=== PATIENT | male | born 1985 | race Caucasian/White ===

== ENCOUNTER 2022-07-24 20:41 | Observation (INO) | payer OTHER ==
--- NOTE | 2022-07-24 22:58 | ED ---
General Adult HPI - General Source: EMS, RN notes reviewed Mode of arrival: EMS Limitations: no limitations <Susie Lipscomb - Last Filed: 07/24/22 23:47> <José Miguel Welsh - Last Filed: 07/25/22 00:39> - General Chief complaint: Recheck/Abnormal Lab/Rx Stated complaint: ETOH Time Seen by Provider: 07/24/22 22:31 - History of Present Illness Initial comments: 36-year-old male with a past medical history of EtOH abuse presents to the emergency department after ingesting alcohol hand lock fitter. She stays at [facility] for alcohol abuse. History is limited due to patient being altered. He denies suicidal ideation, homicidal ideation, auditory hallucinations or visual hallucinations. (Susie Lipscomb) - Related Data Allergies Allergy/AdvReac Type Severity Reaction Status Date / Time No Known Allergies Allergy Verified 07/24/22 20:48 Review of Systems ROS Other: All systems not noted in ROS Statement are negative. <Susie Lipscomb - Last Filed: 07/24/22 23:47> ROS Other: All systems not noted in ROS Statement are negative. <José Miguel Welsh - Last Filed: 07/25/22 00:39> ROS Statement: Those systems with pertinent positive or pertinent negative responses have been documented in the HPI. Past Medical History Past Medical History: No Reported History History of Any Multi-Drug Resistant Organisms: None Reported Past Surgical History: No Surgical Hx Reported Past Psychological History: No Psychological Hx Reported Smoking Status: Current every day smoker Past Alcohol Use History: Abuse, Daily Past Drug Use History: None Reported <Susie Lipscomb - Last Filed: 07/24/22 23:47> General Exam Limitations: no limitations General appearance: alert, in no apparent distress Head exam: Present: atraumatic, normocephalic, normal inspection Eye exam: Present: normal appearance, PERRL, EOMI. Absent: scleral icterus, conjunctival injection, periorbital swelling ENT exam: Present: normal exam, mucous membranes moist Neck exam: Present: normal inspection. Absent: tenderness, meningismus, lymph adenopathy Respiratory exam: Present: normal lung sounds bilaterally. Absent: respiratory distress, wheezes, rales, rhonchi, stridor Cardiovascular Exam: Present: regular rate, normal rhythm, normal heart sounds. Absent: systolic murmur, diastolic murmur, rubs, gallop, clicks GI/Abdominal exam: Present: soft, normal bowel sounds. Absent: distended, tenderness, guarding, rebound, rigid Extremities exam: Present: normal inspection, full ROM, normal capillary refill. Absent: tenderness, pedal edema, joint swelling, calf tenderness Back exam: Present: normal inspection Neurological exam: Present: alert, oriented X3, CN II-XII intact Psychiatric exam: Present: normal affect, normal mood Skin exam: Present: warm, dry, intact, normal color. Absent: rash <Susie Lipscomb - Last Filed: 07/24/22 23:47> Limitations: no limitations, altered mental status, physical limitation General appearance: alert, in no apparent distress, appears intoxicated, obtunded Head exam: Present: atraumatic, normocephalic, normal inspection Eye exam: Present: normal appearance, PERRL, EOMI. Absent: scleral icterus, conjunctival injection, periorbital swelling ENT exam: Present: normal exam, mucous membranes moist Neck exam: Present: normal inspection. Absent: tenderness, meningismus, lymphadenopathy Respiratory exam: Present: normal lung sounds bilaterally. Absent: respiratory distress, wheezes, rales, rhonchi, stridor Cardiovascular Exam: Present: regular rate, normal rhythm, normal heart sounds. Absent: systolic murmur, diastolic murmur, rubs, gallop, clicks GI/Abdominal exam: Present: soft, normal bowel sounds. Absent: distended, tenderness, guarding, rebound, rigid Extremities exam: Present: normal inspection, full ROM, normal capillary refill. Absent: tenderness, pedal edema, joint swelling, calf tenderness Back exam: Present: normal inspection Neurological exam: Present: alert, oriented X3, CN II-XII intact Psychiatric exam: Present: normal affect, normal mood Skin exam: Present: warm, dry, intact, normal color. Absent: rash <José Miguel Welsh - Last Filed: 07/25/22 00:39> Course <José Miguel Welsh - Last Filed: 07/25/22 00:39> Vital Signs 07/24/22 20:46 Temperature 98 F Pulse Rate 101 H Respiratory 20 Rate Blood Pressure 112/74 O2 Sat by Pulse 97 Oximetry - Reevaluation(s) Reevaluation #1: 07/25/22 00:38 Medical record is reviewed (José Miguel Welsh) Reevaluation #2: 07/25/22 00:38 Patient remains obtunded here in the ER arousable (José Miguel Welsh) Medical Decision Making - Lab Data Result diagrams: 07/24/22 22:46 <Susie Lipscomb - Last Filed: 07/24/22 23:47> - Lab Data Result diagrams: 07/24/22 22:46 07/24/22 22:46 <José Miguel Welsh - Last Filed: 07/25/22 00:39> - Medical Decision Making 36 year old male presents to the emergency department for intentional ingestion. He was seen and evaluated, physical exam is essentially unremarkable. History is limited due to the patient being altered likely due to hand lock fitter ingestion. Pt was taken over by Dr. Welsh who agrees to take case for continuation of care. (Susie iLpscomb) 36 male be admitted for significant alcohol intoxication intentional not suicidal (José Miguel Welsh) - Lab Data Lab Results 07/24/22 07/24/22 07/24/22 Range/Units 22:46 22:46 22:46 WBC 9.4 (3.8-10.6) k/uL RBC 4.82 (4.30-5.90) m/uL Hgb 14.9 (13.0-17.5) gm/dL Hct 43.2 (39.0-53.0) % MCV 89.6 (80.0-100.0) fL MCH 30.9 (25.0-35.0) pg MCHC 34.5 (31.0-37.0) g/dL RDW 12.7 (11.5-15.5) % Plt Count 214 (150-450) k/uL MPV 7.7 Neutrophils % 62 % Lymphocytes % 27 % Monocytes % 4 % Eosinophils % 4 % Basophils % 1 % Neutrophils # 5.8 (1.3-7.7) k/uL Lymphocytes # 2.5 (1.0-4.8) k/uL Monocytes # 0.4 (0-1.0) k/uL Eosinophils # 0.3 (0-0.7) k/uL Basophils # 0.1 (0-0.2) k/uL Sodium 148 H (137-145) mmol/L Potassium 4.3 (3.5-5.1) mmol/L Chloride 109 H (98-107) mmol/L Carbon Dioxide 29 (22-30) mmol/L Anion Gap 10 mmol/L BUN 14 (9-20) mg/dL Creatinine 1.15 (0.66-1.25) mg/dL Est GFR (CKD-EPI)AfAm >90 (>60 ml/min/1.73 sqM) Est GFR (CKD-EPI)NonAf 81 (>60 ml/min/1.73 sqM) Glucose 102 H (74-99) mg/dL Calcium 9.0 (8.4-10.2) mg/dL Magnesium 2.4 H (1.6-2.3) mg/dL Total Bilirubin 0.3 (0.2-1.3) mg/dL AST 27 (17-59) U/L ALT 43 (4-49) U/L Alkaline Phosphatase 105 (38-126) U/L Total Protein 7.3 (6.3-8.2) g/dL Albumin 4.6 (3.5-5.0) g/dL Salicylates <1.0 mg/dL Acetaminophen <10.0 ug/mL Serum Alcohol 281 H* mg/dL Disposition <Susie Lipscomb - Last Filed: 07/24/22 23:47> Is patient prescribed a controlled substance at d/c from ED?: No Time of Disposition: 00:40 <José Miguel Welsh - Last Filed: 07/25/22 00:39> Clinical Impression: Alcohol abuse, Alcohol intoxication Disposition: ADMITTED IP TO THIS HOSP Condition: Fair Referrals: None,Stated [Primary Care Provider] - 1-2 days
[2022-07-24 22:59] LABS: Basophils # (A) 0.1 k/uL (0-0.2); Basophils % (A) 1 %; Eosinophils # (A) 0.3 k/uL (0-0.7); Eosinophils % (A) 4 %; HCT 43.2 % (39.0-53.0); HGB 14.9 gm/dL (13.0-17.5); Lymphocytes # (A) 2.5 k/uL (1.0-4.8); Lymphocytes % (A) 27 %; MCH 30.9 pg (25.0-35.0); MCHC 34.5 g/dL (31.0-37.0); MCV 89.6 fL (80.0-100.0); Mean Platelet Volume 7.7; Monocytes # (A) 0.4 k/uL (0-1.0); Monocytes % (A) 4 %; Neutrophils # (A) 5.8 k/uL (1.3-7.7); Neutrophils % (A) 62 %; Platelet Count 214 k/uL (150-450); RBC 4.82 m/uL (4.30-5.90); RDW 12.7 % (11.5-15.5); WBC 9.4 k/uL (3.8-10.6)
[2022-07-24 23:15] LABS: ALT 43 U/L (4-49); AST 27 U/L (17-59); African American GFR (CKD) >90 (>60 ml/min/1.73 sqM); Albumin 4.6 g/dL (3.5-5.0); Alkaline Phosphatase 105 U/L (38-126); Anion Gap 10 mmol/L; Blood Urea Nitrogen 14 mg/dL (9-20); Carbon Dioxide 29 mmol/L (22-30); Chloride 109 mmol/L (98-107); Glucose 102 mg/dL (74-99); Non-African American GFR(CKD) 81 (>60 ml/min/1.73 sqM); Potassium 4.3 mmol/L (3.5-5.1); Sodium 148 mmol/L (137-145); Total Bilirubin 0.3 mg/dL (0.2-1.3); Total Protein 7.3 g/dL (6.3-8.2)
[2022-07-24] MEDS ORDERED: SODIUM CHLORIDE 0.9% 1,000 ML IV STA (23:39)
[2022-07-25 00:01] LABS: Alcohol 281 mg/dL
[2022-07-25 00:15] LABS: Acetaminophen <10.0 ug/mL; Magnesium 2.4 mg/dL (1.6-2.3); Salicylate <1.0 mg/dL
[2022-07-25] MEDS ORDERED: LORazepam 2 MG/ML INJ IV PRN ×3 (00:36)
[2022-07-25] MEDS ORDERED: THIAMINE 100 MG/ML 2 ML VIAL IM STA (00:36)
[2022-07-25] MEDS ORDERED: chlordiazePOXIDE 25 MG CAP PO PRN (00:36)
[2022-07-25] MEDS ORDERED: NALOXONE 0.4 MG/ML 1 ML VIAL IV PRN (00:36)
[2022-07-25 01:54] LABS: Amphetamine Screen,Urine Not Detected (NotDetected); Barbiturate Screen,Urine Not Detected (NotDetected); Benzodiazepines Screen,Urine Not Detected (NotDetected); Cocaine Screen,Urine Not Detected (NotDetected); Methadone Screen, Urine Not Detected (NotDetected); Opiate Screen,Urine Not Detected (NotDetected); Oxycodone Screen, Urine Not Detected (NotDetected); Phencyclidine Screen,Urine Not Detected (NotDetected); Tricyclic Antidepressant,Urine Not Detected (NotDetected); Urn Cannabinoid Scrn Not Detected (NotDetected)
[2022-07-25] MEDS: SODIUM CHLORIDE 0.9% 1,000 ML IV SCH ×2 (02:45→10:06)
--- NOTE | 2022-07-25 03:03 | P.HPIM ---
History of Present Illness H&P Date: 07/25/22 Patient is a 36-year-old male with a PMH of EtOH abuse who was brought to the emergency room for alcohol intoxication. The patient was currently a resident of [facility] for alcohol abuse states that he drank a full bottle of hand insulation cutter earlier today. The history is somewhat limited as the patient was lethargic and intoxicated at the time of interview. He reports a history of heavy drinking for the past 15 years. Reports history of delirium tremens but denied alcohol withdrawal seizures or admission to medical ICU or be placed on life support. The patient was unable to quantify the exact amount of alcohol that he drinks on a regular basis. He reports currently being unemployed and homeless. Laboratory evaluation in the emergency room was remarkable for alcohol level of 281 and sodium 148. Review of systems: Pertinent positives and negatives as discussed in HPI, a complete review of systems was performed and all other systems are negative. Physical examination: General: intoxicated lethargic male, no distress, appears at stated age, normal weight Derm: no unusual rashes/lesions, warm Head: atraumatic, normocephalic, symmetric Eyes: EOMI, no lid lag, anicteric sclera, pupils equal round reactive to light ENT: Nose and ears atraumatic Neck: No cervical lymphadenopathy, trachea midline, supple Mouth: no lip lesion, mucus membranes moist Cardiovascular: S1S2 reg, no murmur, positive dorsalis pedis pulse bilateral, no edema Lungs: CTA bilateral, no rhonchi, no rales, no accessory muscle use Abdominal: soft, nontender to palpation, no guarding Ext: muscle strength 5 out of 5 in all 4 extremities grossly, no gross muscle atrophy, no contractures, Neuro: CN II-XI grossly intact, no gross focal neuro deficits Psych: Lethargic, oriented to time and self, knew he was in a hospital but couldn't state the name Assessment/plan Alcohol intoxication. -CIWA protocol -Thiamine, multivitamin -IV fluids -Monitor for signs of withdrawal -Monitor electrolytes -Fall precautions -Strongly advised patient on importance of cessation Mild hypernatremia -Likely due to poor oral intake with EtOH abuse -Continue with IV fluids -Monitor for now DVT prophylaxis -Heparin subcu The patient is admitted with an anticipated less than 2 midnight stay for evaluation of EtOH intoxication CODE STATUS: Full Code Discussed with: Patient Anticipated discharge date: in am Anticipated discharge place: [facility] Past Medical History Past Medical History: No Reported History History of Any Multi-Drug Resistant Organisms: None Reported Past Surgical History: No Surgical Hx Reported Past Psychological History: No Psychological Hx Reported Smoking Status: Current every day smoker Past Alcohol Use History: Abuse, Daily Past Drug Use History: None Reported - Past Family History Father Family Medical History: Liver Disease Medications and Allergies Allergies Allergy/AdvReac Type Severity Reaction Status Date / Time No Known Allergies Allergy Verified 07/24/22 20:48 Physical Exam Vitals: Vital Signs Temp Pulse Resp BP Pulse Ox 07/25/22 02:32 72 16 101/62 96 07/25/22 01:25 70 16 101/61 97 07/25/22 00:58 78 16 109/55 97 07/24/22 20:46 98 F 101 H 20 112/74 97 Intake and Output 07/24/22 07/24/22 07/25/22 14:59 22:59 06:59 Other: Weight 81.647 kg Results CBC & Chem 7: 07/24/22 22:46 07/24/22 22:46 Labs: Abnormal Lab Results - Last 24 Hours (Table) 07/24/22 07/24/22 Range/Units 22:46 22:46 Sodium 148 H (137-145) mmol/L Chloride 109 H (98-107) mmol/L Glucose 102 H (74-99) mg/dL Magnesium 2.4 H (1.6-2.3) mg/dL Serum Alcohol 281 H* mg/dL
[2022-07-25] MEDS ORDERED: HEPARIN SODIUM,PORCINE/PF 5,000 UNIT/0.5 ML SYRINGE SQ SCH (08:00)
[2022-07-25 08:24] VITALS: BP 91/52; PULSE 77; RESP 16; TEMP 97.9
[2022-07-25] MEDS ORDERED: THIAMINE 100 MG TAB PO SCH (09:00)
[2022-07-25] MEDS ORDERED: MULTIVITAMINS, THERA 1 EACH TAB PO SCH (09:00)
[2022-07-25 10:33] LABS: African American GFR (CKD) >90 (>60 ml/min/1.73 sqM); Anion Gap 10 mmol/L; Blood Urea Nitrogen 13 mg/dL (9-20); Calcium 8.2 mg/dL (8.4-10.2); Carbon Dioxide 26 mmol/L (22-30); Chloride 110 mmol/L (98-107); Glucose 85 mg/dL (74-99); Non-African American GFR(CKD) >90 (>60 ml/min/1.73 sqM); Potassium 3.9 mmol/L (3.5-5.1); Sodium 146 mmol/L (137-145)
--- NOTE | 2022-07-25 12:28 | P.DS ---
Providers Date of admission: 07/25/22 00:38 Expected date of discharge: 07/25/22 Attending physician: Marcel Sommers MD Primary care physician: Stated None Hospital Course: Patient is a 36-year-old male with a PMH of EtOH abuse who was brought to the emergency room for alcohol intoxication. The patient was currently a resident of [facility] for alcohol abuse states that he drank a full bottle of hand automatic lathe tender earlier today. The history is somewhat limited as the patient was lethargic and intoxicated at the time of interview. He reports a history of heavy drinking for the past 15 years. Reports history of delirium tremens but denied alcohol withdrawal seizures or admission to medical ICU or be placed on life support. The patient was unable to quantify the exact amount of alcohol that he drinks on a regular basis. He reports currently being unemployed and homeless. Laboratory evaluation in the emergency room was remarkable for alcohol level of 281 and sodium 148. Patient was placed on CIWA protocol and given Ativan as needed. He was hydrated with normal saline. Repeat sodium is 146. He had no signs of alcohol withdrawal. Patient was seen and examined. No acute events overnight. Patient reports fatigue and headache but denies any other complaints. General: non toxic, no distress, appears at stated age Derm: warm, dry Head: atraumatic, normocephalic, symmetric Eyes: EOMI, no lid lag, anicteric sclera Mouth: no lip lesion, mucus membranes moist Cardiovascular: S1S2 reg, no murmur Lungs: CTA bilateral, no rhonchi, no rales , no accessory muscle use Ext: no gross muscle atrophy, no edema, no contractures Neuro: no focal neuro deficits Psych: Alert, oriented, appropriate affect Discharge diagnosis: #Alcohol intoxication. #Mild hypernatremia Patient will be discharged back to [facility] with the following instructions: Diet: Regular FU with your PCP within 1-2 days of DC. Refrain from drinking alcohol or hand automatic lathe tender. Patient Condition at Discharge: Fair Plan - Discharge Summary Discharge Rx Participant: Yes New Discharge Prescriptions: Continue OXcarbazepine [Trileptal] 150 mg PO DAILY Escitalopram [Lexapro] 10 mg PO DAILY OXcarbazepine [Trileptal] 300 mg PO DAILY OLANZapine 5 mg PO DAILY Discharge Medication List Escitalopram [Lexapro] 10 mg PO DAILY 07/25/22 [History] OLANZapine 5 mg PO DAILY 07/25/22 [History] OXcarbazepine [Trileptal] 150 mg PO DAILY 07/25/22 [History] OXcarbazepine [Trileptal] 300 mg PO DAILY 07/25/22 [History] Follow up Appointment(s)/Referral(s): None,Stated [Primary Care Provider] - 1-2 days Activity/Diet/Wound Care/Special Instructions: Diet: Regular FU with your PCP within 1-2 days of DC. Refrain from drinking alcohol or hand automatic lathe tender. Discharge/Stand Alone Forms: AA Meetings [facility], [facility] Resources, Outpatient Counseling, In Substance Abuse Facilities Discharge Disposition: HOME SELF-CARE
== END 2022-07-25 15:35 | disposition home or self-care (01) ==
LOC: EC 20:41 → 6NMEDSUR 07-25 00:38
PROVIDERS: ADMIT Internal Medicine; ATTEND Internal Medicine
DX: T49.0X2A Poisoning by local antifungal, anti-infective and anti-inflammatory drugs, intentional self-harm, initial encounter (principal); F10.129 Alcohol abuse with intoxication, unspecified; E87.0 Hyperosmolality and hypernatremia; R51.9 Headache, unspecified; Y90.8 Blood alcohol level of 240 mg/100 ml or more; F17.200 Nicotine dependence, unspecified, uncomplicated; Z56.0 Unemployment, unspecified; Z59.00 Homelessness unspecified; Z71.41 Alcohol abuse counseling and surveillance of alcoholic; Z83.79 Family history of other diseases of the digestive system
CPT/HCPCS: 96372 ×2; 82075; 96360; 96361; 99285; 36415; 93005; 80053; 80048; 83735; 85025; 80306; 80143; 80179; G0378; G0480; J3411; J1644; 80320

== ENCOUNTER 2022-10-22 05:38 | Emergency (ER) | payer OTHER ==
[2022-10-22] MEDS ORDERED: KETOROLAC 15 MG/ML 1 ML VIAL IVP STA (05:46)
--- NOTE | 2022-10-22 05:49 | ED ---
General Adult HPI <Jered Byrd - Last Filed: 10/22/22 06:18> <Vickey Chambers - Last Filed: 10/22/22 09:31> - General Stated complaint: ABD PAIN Time Seen by Provider: 10/22/22 05:40 - History of Present Illness Initial comments: This is a 37-year-old male with a past mental history including depression presents emergency department via EMS for left-sided abdominal pain and flank pain. The patient stated that this pain began at 4:00 in the morning and has been persistent. The patient stated he was "knee area and didn't know what else to do so he called 911." The patient was in bed stating he had continued left- sided abdominal pain. The patient denied having any similar episodes in the past. The patient denied any nausea or vomiting with this pain. The patient also denied any dysuria or increased urinary frequency. The patient was an overall poor historian and cannot provide many details regarding the left-sided abdominal pain. The patient also denied any trauma to the area. (Jered Byrd) - Related Data Home Medications Medication Instructions Recorded Confirmed Escitalopram [Lexapro] 20 mg PO DAILY 10/22/22 10/22/22 Previous Rx's Medication Instructions Recorded Ibuprofen [Motrin] 600 mg PO Q8HR PRN #24 tab 10/22/22 Tamsulosin [Flomax] 0.4 mg PO DAILY 7 Days #7 cap 10/22/22 Allergies Allergy/AdvReac Type Severity Reaction Status Date / Time No Known Allergies Allergy Verified 07/25/22 10:28 Review of Systems ROS Other: All systems not noted in ROS Statement are negative. <Jered Byrd - Last Filed: 10/22/22 06:18> ROS Other: All systems not noted in ROS Statement are negative. <Vickey Chambers - Last Filed: 10/22/22 09:31> ROS Statement: Those systems with pertinent positive or pertinent negative responses have been documented in the HPI. Past Medical History Past Medical History: No Reported History History of Any Multi-Drug Resistant Organisms: None Reported Past Surgical History: No Surgical Hx Reported Past Anesthesia/Blood Transfusion Reactions: No Reported Reaction Past Psychological History: No Psychological Hx Reported Smoking Status: Current every day smoker Past Alcohol Use History: Abuse, Daily Past Drug Use History: None Reported - Past Family History Father Family Medical History: Liver Disease <Jered Byrd - Last Filed: 10/22/22 06:18> General Exam Limitations: no limitations General appearance: alert, in no apparent distress Head exam: Present: atraumatic, normocephalic, normal inspection Eye exam: Present: normal appearance, PERRL Pupils: Present: normal accommodation ENT exam: Present: normal exam, normal oropharynx, mucous membranes moist Neck exam: Present: normal inspection, full ROM Respiratory exam: Present: normal lung sounds bilaterally Cardiovascular Exam: Present: regular rate, normal rhythm, normal heart sounds GI/Abdominal exam: Present: soft, tenderness (Tenderness noted to the left upper and left lower abdominal quadrant as well as left flank without CVA tenderness) Extremities exam: Present: normal inspection, full ROM Back exam: Present: normal inspection, full ROM Neurological exam: Present: alert, oriented X3, CN II-XII intact Psychiatric exam: Present: normal affect, normal mood Skin exam: Present: warm, dry <Jered Byrd - Last Filed: 10/22/22 06:18> Course Vital Signs 10/22/22 05:47 Temperature 98.0 F Pulse Rate 90 Respiratory 16 Rate Blood Pressure 153/93 O2 Sat by Pulse 100 Oximetry Medical Decision Making <Jered Byrd - Last Filed: 10/22/22 06:18> - Lab Data Result diagrams: 10/22/22 06:00 10/22/22 06:00 <Vickey Chambers - Last Filed: 10/22/22 09:31> - Medical Decision Making Was pt. sent in by a medical professional or institution ([facility], [facility]OURNEY[employer]EFIT[employer], urgent care, hospital, or fci...) When possible be specific @ -No Did you speak to anyone other than the patient for history (EMS, parent, family, police, friend...)? What history was obtained from this source @ -Yes, EMS Did you review nursing and triage notes (agree or disagree)? Why? @ -I reviewed and agree with nursing and triage notes Were old charts reviewed (outside hosp., previous admission, EMS record, old EKG, old radiological studies, urgent care reports/EKG's, fci records)? Report findings @ -No old charts were reviewed Differential Diagnosis (chest pain, altered mental status, abdominal pain women, abdominal pain men, vaginal bleeding, weakness, fever, dyspnea, syncope, headache, dizziness, GI bleed, back pain, seizure, CVA, palpatations, mental health)? @ -Kidney stone, muscle strain, gastroenteritis EKG interpreted by me (3pts min.). @ -None X-rays interpreted by me (1pt min.). @ -None done CT interpreted by me (1pt min.). @ -CT of the abdomen and pelvis with IV contrast was obtained and was pending at this time. U/S interpreted by me (1pt. min.). @ -None done What testing was considered but not performed or refused? (CT, X-rays, U/S, labs)? Why? @ -None What meds were considered but not given or refused? Why? @ -None Did you discuss the management of the patient with other professionals (professionals i.e. , PA, JOURNEYMAN PIPEFITTER, lab, RT, psych nurse, child protective services social worker, contact center representative, teacher, control officer, renal case manager)? Give summary @ -No Was smoking cessation discussed for >3mins.? @ -No Was critical care preformed (if so, how long)? @ -No Were there social determinants of health that impacted care today? How? (Homelessness, low income, unemployed, alcoholism, drug addiction, tr ansportation, low edu. Level, literacy, decrease access to med. care, fci, rehab)? @ -No Was there de-escalation of care discussed even if they declined (Discuss DNR or withdrawal of care, Hospice)? DNR status @ -No What co-morbidities impacted this encounter? (DM, HTN, Smoking, COPD, CAD, Cancer, CVA, ARF, Chemo, Hep., AIDS, mental health diagnosis, sleep apnea, morbid obesity)? @ -None Was patient admitted / discharged? Hospital course, mention meds given and route, prescriptions, significant lab abnormalities, going to OR and other pertinent info. @ -The patient was seen and evaluated emergency department. Physical exam, the patient was resting in bed with intermittent left-sided abdominal pain and flank pain. Vital signs admission were stable. Due to the patient's complaints, laboratory workup as well as a CT of the abdomen and pelvis was obtained. Laboratory workup and CT scans were stable pending at this time. The patient will be signed out to Dr. Chambers for completion of the workup. The patient was signed out at 0700. Undiagnosed new problem with uncertain prognosis? @ -No Drug Therapy requiring intensive monitoring for toxicity (Heparin, Nitro, Insulin, Cardizem)? @ -No Were any procedures done? @ -No Diagnosis/symptom? @ -default Acute, or Chronic, or Acute on Chronic? @ -default Uncomplicated (without systemic symptoms) or Complicated (systemic symptoms)? @ -default Side effects of treatment? @ -No Exacerbation, Progression, or Severe Exacerbation? @ -No Poses a threat to life or bodily function? How? (Chest pain, USA, MS, pneumonia, PE, COPD, DKA, ARF, appy, cholecystitis, CVA, Diverticulitis, Homicidal, Suicidal, threat to staff... and all critical care pts) @ -No (Jered Byrd) Patient had been seen by previous provider awaiting computed tomography scan for left-sided abdominal pain and flank pain. Patient reevaluated, resting comfortably pain is improved. CT showing a 3 mm stone in the bladder which is likely the cause of the patient's pain he does have some left-sided hydronephrosis to aid in the diagnosis. Urinalysis shows red cells consistent with kidney stone. He is given a urine strainer. He is feeling better on reevaluation vital signs are improved. He stable for discharge at this time with urology follow-up. (Vickey Chambers) - Lab Data Lab Results 10/22/22 10/22/22 10/22/22 Range/Units 06:00 06:00 08:04 WBC 14.3 H (3.8-10.6) k/uL RBC 5.50 (4.30-5.90) m/uL Hgb 17.2 (13.0-17.5) gm/dL Hct 48.9 (39.0-53.0) % MCV 88.9 (80.0-100.0) fL MCH 31.3 (25.0-35.0) pg MCHC 35.2 (31.0-37.0) g/dL RDW 12.8 (11.5-15.5) % Plt Count 262 (150-450) k/uL MPV 7.6 Neutrophils % 77 % Lymphocytes % 18 % Monocytes % 4 % Eosinophils % 1 % Basophils % 0 % Neutrophils # 11.0 H (1.3-7.7) k/uL Lymphocytes # 2.5 (1.0-4.8) k/uL Monocytes # 0.5 (0-1.0) k/uL Eosinophils # 0.1 (0-0.7) k/uL Basophils # 0.0 (0-0.2) k/uL Sodium 140 (137-145) mmol/L Potassium 4.3 (3.5-5.1) mmol/L Chloride 105 (98-107) mmol/L Carbon Dioxide 26 (22-30) mmol/L Anion Gap 9 mmol/L BUN 17 (9-20) mg/dL Creatinine 1.06 (0.66-1.25) mg/dL Est GFR (CKD-EPI)AfAm >90 (>60 ml/min/1.73 sqM) Est GFR (CKD-EPI)NonAf 89 (>60 ml/min/1.73 sqM) Glucose 152 H (74-99) mg/dL Calcium 9.8 (8.4-10.2) mg/dL Magnesium 1.8 (1.6-2.3) mg/dL Total Bilirubin 0.5 (0.2-1.3) mg/dL AST 25 (17-59) U/L ALT 29 (4-49) U/L Alkaline Phosphatase 108 (38-126) U/L Total Protein 7.5 (6.3-8.2) g/dL Albumin 4.7 (3.5-5.0) g/dL Lipase 71 (23-300) U/L Urine Color Yellow Urine Appearance Clear (Clear) Urine pH 7.5 (5.0-8.0) Ur Specific [place] 1.050 H (1.001-1.035) Urine Protein Trace H (Negative) Urine Glucose (UA) Negative (Negative) Urine Ketones 2+ H (Negative) Urine Blood Small H (Negative) Urine Nitrite Negative (Negative) Urine Bilirubin Negative (Negative) Urine Urobilinogen <2.0 (<2.0) mg/dL Ur Leukocyte Esterase Negative (Negative) Urine RBC 41 H (0-5) /hpf Urine WBC 1 (0-5) /hpf Urine Mucus Rare H (None) /hpf Disposition <Jered Byrd - Last Filed: 10/22/22 06:18> Is patient prescribed a controlled substance at d/c from ED?: No Time of Disposition: 09:31 <Vickey Chambers - Last Filed: 10/22/22 09:31> Clinical Impression: Calculus of kidney Disposition: HOME SELF-CARE Condition: Good Instructions (If sedation given, give patient instructions): Renal Colic (ED), Kidney Stones (ED) Prescriptions: Tamsulosin [Flomax] 0.4 mg PO DAILY 7 Days #7 cap Ibuprofen [Motrin] 600 mg PO Q8HR PRN #24 tab PRN Reason: Pain Referrals: None,Stated [Primary Care Provider] - 1-2 days Yoshi Harris MD [STAFF PHYSICIAN] - 1-2 days
[2022-10-22] MEDS ORDERED: SODIUM CHLORIDE 0.9% 1,000 ML IV ONE (06:05)
[2022-10-22 06:22] LABS: Basophils % (A) 0 %; Eosinophils # (A) 0.1 k/uL (0-0.7); Eosinophils % (A) 1 %; HCT 48.9 % (39.0-53.0); HGB 17.2 gm/dL (13.0-17.5); Lymphocytes # (A) 2.5 k/uL (1.0-4.8); Lymphocytes % (A) 18 %; MCH 31.3 pg (25.0-35.0); MCHC 35.2 g/dL (31.0-37.0); MCV 88.9 fL (80.0-100.0); Mean Platelet Volume 7.6; Monocytes # (A) 0.5 k/uL (0-1.0); Monocytes % (A) 4 %; Neutrophils % (A) 77 %; Platelet Count 262 k/uL (150-450); RDW 12.8 % (11.5-15.5); WBC 14.3 k/uL (3.8-10.6)
[2022-10-22 06:38] LABS: ALT 29 U/L (4-49); AST 25 U/L (17-59); African American GFR (CKD) >90 (>60 ml/min/1.73 sqM); Albumin 4.7 g/dL (3.5-5.0); Alkaline Phosphatase 108 U/L (38-126); Anion Gap 9 mmol/L; Blood Urea Nitrogen 17 mg/dL (9-20); Calcium 9.8 mg/dL (8.4-10.2); Carbon Dioxide 26 mmol/L (22-30); Chloride 105 mmol/L (98-107); Glucose 152 mg/dL (74-99); Lipase 71 U/L (23-300); Magnesium 1.8 mg/dL (1.6-2.3); Non-African American GFR(CKD) 89 (>60 ml/min/1.73 sqM); Potassium 4.3 mmol/L (3.5-5.1); Sodium 140 mmol/L (137-145); Total Bilirubin 0.5 mg/dL (0.2-1.3); Total Protein 7.5 g/dL (6.3-8.2)
--- NOTE | 2022-10-22 07:45 | CT ---
EXAMINATION TYPE: CT abdomen pelvis w con DATE OF EXAM: 10/22/2022 COMPARISON: None HISTORY: LLQ pain CT DLP: 842.8 mGycm CONTRAST: CT scan of the abdomen and pelvis is performed without Oral Contrast and with IV Contrast, patient in jected with 100 mL of Isovue 300. FINDINGS: LUNG BASES-: No visible nodule. No infiltrate. LIVER/GB: No calcified gallstones. No space occupying hepatic lesion. Biliary tree is of normal ca liber. PANCREAS: No inflammation. No distinct mass. SPLEEN: No splenic enlargement. No lesion seen. ADRENALS: No nodule. No thickening. KIDNEYS/BLADDER: 3 mm calculus within the urinary bladder adjacent to the left UVJ is felt to reflect a recently passed calculus. Mild left-sided hydronephrosis. 3-4 right-sided nonobstructing calculi s een measuring up to 2 mm. The left kidney demonstrates additional 3 mm calculus mid pole is a 1 calcu britta mid pole and 1 mm calculus lower pole. Mild left renal edema noted. BOWEL: Normal appendix. Normal bowel caliber. No inflammation. GENITAL ORGANS: No gross abnormality. LYMPH NODES: No greater than 1cm abdominal or pelvic lymph nodes are appreciated. AORTA: No significant abnormality. OSSEOUS STRUCTURES: No significant abnormality is seen. OTHER: No significant additional abnormality is seen. IMPRESSION: 1. 3 mm calculus within the urinary bladder adjacent to the left UVJ is felt to reflect a recently p assed calculus. Mild left-sided hydronephrosis.
[2022-10-22 08:46] LABS: Appearance,Urine Clear (Clear); Bilirubin,Urine Negative (Negative); Blood,Urine Small (Negative); Color,Urine Yellow; Glucose,Urine (UA) Negative (Negative); Ketones,Urine 2+ (Negative); Leukocyte Esterase,Urine Negative (Negative); Mucus,Urine Rare /hpf; Nitrite,Urine Negative (Negative); PH, Urine 7.5 (5.0-8.0); Protein,Urine Trace (Negative); RBC,Urine 41 /hpf (0-5); Urobilinogen,Urine <2.0 mg/dL (<2.0); WBC,Urine 1 /hpf (0-5)
[2022-10-22 10:09] VITALS: BP 137/89; PULSE 96; RESP 18; TEMP 97.9
== END 2022-10-22 10:09 | disposition home or self-care (01) ==
LOC: EC 05:38
DX: N13.2 Hydronephrosis with renal and ureteral calculous obstruction (principal); F17.200 Nicotine dependence, unspecified, uncomplicated
CPT/HCPCS: 36415; 80053; 83690; 83735; 85025; 81001; 74177; 99285; 96374; 96361; J1885; Q9967

== ENCOUNTER 2022-11-11 15:05 | Emergency (ER) | payer OTHER ==
[2022-11-11] MEDS ORDERED: SODIUM CHLORIDE 0.9% 1,000 ML IV STA (15:30)
[2022-11-11] MEDS ORDERED: KETOROLAC 15 MG/ML 1 ML VIAL IVP STA (15:30)
[2022-11-11] MEDS ORDERED: DIPH,PERTUS(ACELL)TETVAC-LF 0.5 ML VIAL IM ONE (15:37)
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
[2022-11-11 16:19] VITALS: RESP 14
[2022-11-11 17:38] VITALS: BP 132/76; PULSE 82; TEMP 98.6
== END 2022-11-11 17:38 | disposition home or self-care (01) ==
LOC: EC 15:05
DX: S01.01XA Laceration without foreign body of scalp, initial encounter (principal); F17.200 Nicotine dependence, unspecified, uncomplicated; Z23 Encounter for immunization; V29.99XA Rider (driver) (passenger) of other motorcycle injured in unspecified traffic accident, initial encounter; Y93.55 Activity, bike riding
CPT/HCPCS: 12002; 99285; 90471; 96374; 96361; 72125; 70450; 90715; J1885

== ENCOUNTER 2022-12-08 08:17 | Observation (INO) | payer OTHER ==
[2022-12-08] MEDS ORDERED: SODIUM CHLORIDE 0.9% 1,000 ML IV ONE (08:26)
--- NOTE | 2022-12-08 08:32 | ED ---
Altered Mental Status HPI - General Stated Complaint: AMS Time Seen by Provider: 12/08/22 08:17 - History of Present Illness Initial Comments: 37-year-old male with past medical history of daily alcohol abuse, homelessness who presents to the emergency department with decreased responsiveness. [place] EMS states that he had made a makeshift bed with blankets. He was wearing a very light jacket and had taken his shoes off. He was not answering questions appropriately. He is known to be a heavy drinker and has been staying in a jail. There was no signs of trauma or assault. Patient is known to EMS and they deny that he has any type of psychiatric history. HPI is limited due to the patient's current mental status - Related Data Home Medications Medication Instructions Recorded Confirmed Escitalopram [Lexapro] 20 mg PO DAILY 10/22/22 12/08/22 OLANZapine [ZyPREXA] 5 mg PO HS 12/08/22 12/08/22 OXcarbazepine [Trileptal] 150 mg PO BID 12/08/22 12/08/22 Allergies Allergy/AdvReac Type Severity Reaction Status Date / Time No Known Allergies Allergy Verified 12/08/22 10:04 Review of Systems ROS Statement: Those systems with pertinent positive or pertinent negative responses have been documented in the HPI. ROS Other: All systems not noted in ROS Statement are negative. Past Medical History Past Medical History: No Reported History History of Any Multi-Drug Resistant Organisms: None Reported Past Surgical History: No Surgical Hx Reported Past Anesthesia/Blood Transfusion Reactions: No Reported Reaction Past Psychological History: No Psychological Hx Reported Smoking Status: Current every day smoker Past Alcohol Use History: Abuse, Daily Past Drug Use History: None Reported - Past Family History Father Family Medical History: Liver Disease General Exam Limitations: altered mental status General appearance: appears intoxicated, other (Smell strongly of alcohol) Head exam: Present: atraumatic, normocephalic, normal inspection, other (No outward signs of trauma) Eye exam: Present: normal appearance, PERRL, EOMI. Absent: scleral icterus, conjunctival injection, periorbital swelling ENT exam: Present: normal exam, mucous membranes moist Neck exam: Present: normal inspection. Absent: tenderness, meningismus, lymphadenopathy Respiratory exam: Present: normal lung sounds bilaterally. Absent: respiratory distress, wheezes, rales, rhonchi, stridor Cardiovascular Exam: Present: regular rate, normal rhythm, normal heart sounds. Absent: systolic murmur, diastolic murmur, rubs, gallop, clicks Neurological exam: Present: altered Psychiatric exam: Present: flat affect Skin exam: Present: other (Cool) Course Vital Signs 12/08/22 12/08/22 12/08/22 08:18 09:38 10:51 Temperature 93.7 F L 94.8 F L 95.2 F L Pulse Rate 72 72 75 Respiratory 16 18 16 Rate Blood Pressure 112/96 104/66 92/63 O2 Sat by Pulse 98 95 97 Oximetry Medical Decision Making - Medical Decision Making Was pt. sent in by a medical professional or institution (, PA, CORKING MACHINE OPERATOR, urgent care, hospital, or halfway...) When possible be specific @ -No Did you speak to anyone other than the patient for history (EMS, parent, family, police, friend...)? What history was obtained from this source @ -EMS provide history of how they found the patient. Denies signs of trauma at scene Did you review nursing and triage notes (agree or disagree)? Why? @ -I reviewed and agree with nursing and triage notes Were old charts reviewed (outside hosp., previous admission, EMS record, old EKG, old radiological studies, urgent care reports/EKG's, halfway records)? Report findings @ -Yes - patient previously hospitalized for alcohol abuse Differential Diagnosis (chest pain, altered mental status, abdominal pain women, abdominal pain men, vaginal bleeding, weakness, fever, dyspnea, syncope, headache, dizziness, GI bleed, back pain, seizure, CVA, palpatations, mental health, musculoskeletal)? @ -meningitis, traumatic brain injury, alcohol ingestion, drug ingestion, uti, sah, sdh EKG interpreted by me (3pts min.). @ -The EKG was interpreted by myself - please see EKG heading for further information X-rays interpreted by me (1pt min.). @ -yes, interpreted by myself CT interpreted by me (1pt min.). @ -yes, interpreted by myself U/S interpreted by me (1pt. min.). @ -None done What testing was considered but not performed or refused? (CT, X-rays, U/S, labs)? Why? @ -None What meds were considered but not given or refused? Why? @ -None Did you discuss the management of the patient with other professionals (professionals i.e. , PA, CORKING MACHINE OPERATOR, lab, RT, psych nurse, social service liaison, fork truck driver, teacher, systems support officer, gearcase assembler)? Give summary @ -Yes, discussed admission with dr valles Was smoking cessation discussed for >3mins.? @ -No Was critical care preformed (if so, how long)? @ -No Were there social determinants of health that impacted care today? How? (Homelessness, low income, unemployed, alcoholism, drug addiction, transport ation, low edu. Level, literacy, decrease access to med. care, custodial, rehab)? @ -alcoholism and homelessness is why the patient was found outside drunk and brought to the ED Was there de-escalation of care discussed even if they declined (Discuss DNR or withdrawal of care, Hospice)? DNR status @ -No What co-morbidities impacted this encounter? (DM, HTN, Smoking, COPD, CAD, Cancer, CVA, ARF, Chemo, Hep., AIDS, mental health diagnosis, sleep apnea, morbid obesity)? @ -alcoholism Was patient admitted / discharged? Hospital course, mention meds given and route, prescriptions, significant lab abnormalities, going to OR and other pertinent info. @ -Upon arrival patient was placed into room 5. Thorough history and physical exam is performed. IV access is established. He is given a liter bolus of normal saline. Laboratory studies are reviewed. Sodium 149. Alcohol 399. CT of the brain demonstrates no acute process. Symmetric prominent bilateral superior ophthalmic vein's. Chest x-ray demonstrates no acute process. Results are discussed with Dr. Valles who will admit the patient. Undiagnosed new problem with uncertain prognosis? @ -yes Drug Therapy requiring intensive monitoring for toxicity (Heparin, Nitro, Insulin, Cardizem)? @ -No Were any procedures done? @ -No Diagnosis/symptom? @ -acute toxic encephalopathy, acute alcohol intoxication, chronic alcohol abuse Uncomplicated (without systemic symptoms) or Complicated (systemic symptoms)? @ -complicated Side effects of treatment? @ -no Exacerbation, Progression, or Severe Exacerbation? @ -No Poses a threat to life or bodily function? How? (Chest pain, USA, VT, pneumonia, PE, COPD, DKA, ARF, appy, cholecystitis, CVA, Diverticulitis, Homicidal, Suicidal, threat to staff... and all critical care pts) @ -yes- significant alcohol intoxation could lead to aspiration or trauma - Lab Data Result diagrams: 12/09/22 05:59 12/09/22 05:59 Lab Results 12/08/22 12/08/22 12/08/22 Range/Units 08:34 08:34 08:34 WBC 12.0 H (3.8-10.6) k/uL RBC 5.31 (4.30-5.90) m/uL Hgb 15.9 (13.0-17.5) gm/dL Hct 48.0 (39.0-53.0) % MCV 90.4 (80.0-100.0) fL MCH 29.9 (25.0-35.0) pg MCHC 33.0 (31.0-37.0) g/dL RDW 13.5 (11.5-15.5) % Plt Count 238 (150-450) k/uL MPV 7.2 Neutrophils % 64 % Lymphocytes % 27 % Monocytes % 5 % Eosinophils % 1 % Basophils % 0 % Neutrophils # 7.7 (1.3-7.7) k/uL Lymphocytes # 3.2 (1.0-4.8) k/uL Monocytes # 0.6 (0-1.0) k/uL Eosinophils # 0.2 (0-0.7) k/uL Basophils # 0.0 (0-0.2) k/uL Sodium 149 H (137-145) mmol/L Potassium 4.3 (3.5-5.1) mmol/L Chloride 112 H (98-107) mmol/L Carbon Dioxide 28 (22-30) mmol/L Anion Gap 9 mmol/L BUN 14 (9-20) mg/dL Creatinine 0.91 (0.66-1.25) mg/dL Est GFR (CKD-EPI)AfAm >90 (>60 ml/min/1.73 sqM) Est GFR (CKD-EPI)NonAf >90 (>60 ml/min/1.73 sqM) Glucose 100 H (74-99) mg/dL POC Glucose (mg/dL) (70-110) mg/dL POC Glu Stock And Station Agent ID Calcium 8.2 L (8.4-10.2) mg/dL Total Bilirubin 0.2 (0.2-1.3) mg/dL AST 32 (17-59) U/L ALT 40 (4-49) U/L Alkaline Phosphatase 81 (38-126) U/L Creatine Kinase 276 H (55-170) U/L Troponin I <0.012 (0.000-0.034) ng/mL Total Protein 7.5 (6.3-8.2) g/dL Albumin 4.5 (3.5-5.0) g/dL Urine Color Urine Appearance (Clear) Urine pH (5.0-8.0) Ur Specific [place] (1.001-1.035) Urine Protein (Negative) Urine Glucose (UA) (Negative) Urine Ketones (Negative) Urine Blood (Negative) Urine Nitrite (Negative) Urine Bilirubin (Negative) Urine Urobilinogen (<2.0) mg/dL Ur Leukocyte Esterase (Negative) Salicylates <1.0 mg/dL Urine Opiates Screen (NotDetected) Ur Oxycodone Screen (NotDetected) Urine Methadone Screen (NotDetected) Ur Propoxyphene Screen (NotDetected) Acetaminophen <10.0 ug/mL Ur Barbiturates Screen (NotDetected) U Tricyclic Antidepress (NotDetected) Ur Phencyclidine Scrn (NotDetected) Ur Amphetamines Screen (NotDetected) U Methamphetamines Scrn (NotDetected) U Benzodiazepines Scrn (NotDetected) Urine Cocaine Screen (NotDetected) U Marijuana (THC) Screen (NotDetected) Serum Alcohol 399 H* mg/dL 12/08/22 12/08/22 Range/Units 08:50 08:52 WBC (3.8-10.6) k/uL RBC (4.30-5.90) m/uL Hgb (13.0-17.5) gm/dL Hct (39.0-53.0) % MCV (80.0-100.0) fL MCH (25.0-35.0) pg MCHC (31.0-37.0) g/dL RDW (11.5-15.5) % Plt Count (150-450) k/uL MPV Neutrophils % % Lymphocytes % % Monocytes % % Eosinophils % % Basophils % % Neutrophils # (1.3-7.7) k/uL Lymphocytes # (1.0-4.8) k/uL Monocytes # (0-1.0) k/uL Eosinophils # (0-0.7) k/uL Basophils # (0-0.2) k/uL Sodium (137-145) mmol/L Potassium (3.5-5.1) mmol/L Chloride (98-107) mmol/L Carbon Dioxide (22-30) mmol/L Anion Gap mmol/L BUN (9-20) mg/dL Creatinine (0.66-1.25) mg/dL Est GFR (CKD-EPI)AfAm (>60 ml/min/1.73 sqM) Est GFR (CKD-EPI)NonAf (>60 ml/min/1.73 sqM) Glucose (74-99) mg/dL POC Glucose (mg/dL) 97 (70-110) mg/dL POC Glu Stock And Station Agent ID Eliezer Cohen Calcium (8.4-10.2) mg/dL Total Bilirubin (0.2-1.3) mg/dL AST (17-59) U/L ALT (4-49) U/L Alkaline Phosphatase (38-126) U/L Creatine Kinase (55-170) U/L Troponin I (0.000-0.034) ng/mL Total Protein (6.3-8.2) g/dL Albumin (3.5-5.0) g/dL Urine Color Light Yellow Urine Appearance Clear (Clear) Urine pH 5.5 (5.0-8.0) Ur Specific [place] 1.007 (1.001-1.035) Urine Protein Negative (Negative) Urine Glucose (UA) Negative (Negative) Urine Ketones Negative (Negative) Urine Blood Negative (Negative) Urine Nitrite Negative (Negative) Urine Bilirubin Negative (Negative) Urine Urobilinogen <2.0 (<2.0) mg/dL Ur Leukocyte Esterase Negative (Negative) Salicylates mg/dL Urine Opiates Screen Not Detected (NotDetected) Ur Oxycodone Screen Not Detected (NotDetected) Urine Methadone Screen Not Detected (NotDetected) Ur Propoxyphene Screen Not Detected (NotDetected) Acetaminophen ug/mL Ur Barbiturates Screen Not Detected (NotDetected) U Tricyclic Antidepress Not Detected (NotDetected) Ur Phencyclidine Scrn Not Detected (NotDetected) Ur Amphetamines Screen Not Detected (NotDetected) U Methamphetamines Scrn Not Detected (NotDetected) U Benzodiazepines Scrn Not Detected (NotDetected) Urine Cocaine Screen Not Detected (NotDetected) U Marijuana (THC) Screen Not Detected (NotDetected) Serum Alcohol mg/dL - EKG Data EKG Comments: EKG demonstrates sinus bradycardia with a rate of 59. [place] interval 149. QRS 110. QTC of 447. No acute ST segment elevations or depressions Disposition Clinical Impression: Alcohol intoxication, Encephalopathy acute, Hypothermia Disposition: ADMITTED IP TO THIS [facility] Condition: Stable Is patient prescribed a controlled substance at d/c from ED?: No Time of Disposition: 09:51 Decision to Admit Reason: Admit from EC Decision Date: 12/08/22 Decision Time: 09:51
[2022-12-08 08:54] LABS: Glucose,Whole Blood 97 mg/dL (70-110)
[2022-12-08 08:55] LABS: Basophils % (A) 0 %; Eosinophils # (A) 0.2 k/uL (0-0.7); Eosinophils % (A) 1 %; HGB 15.9 gm/dL (13.0-17.5); Lymphocytes # (A) 3.2 k/uL (1.0-4.8); Lymphocytes % (A) 27 %; MCH 29.9 pg (25.0-35.0); MCV 90.4 fL (80.0-100.0); Mean Platelet Volume 7.2; Monocytes # (A) 0.6 k/uL (0-1.0); Monocytes % (A) 5 %; Neutrophils # (A) 7.7 k/uL (1.3-7.7); Neutrophils % (A) 64 %; Platelet Count 238 k/uL (150-450); RBC 5.31 m/uL (4.30-5.90); RDW 13.5 % (11.5-15.5)
[2022-12-08 08:57] LABS: Appearance,Urine Clear (Clear); Bilirubin,Urine Negative (Negative); Blood,Urine Negative (Negative); Color,Urine Light Yellow; Glucose,Urine (UA) Negative (Negative); Ketones,Urine Negative (Negative); Leukocyte Esterase,Urine Negative (Negative); Nitrite,Urine Negative (Negative); PH, Urine 5.5 (5.0-8.0); Protein,Urine Negative (Negative); Specific Gravity,Urine 1.007 (1.001-1.035); Urobilinogen,Urine <2.0 mg/dL (<2.0)
[2022-12-08 08:59] LABS: ALT 40 U/L (4-49); AST 32 U/L (17-59); Acetaminophen <10.0 ug/mL; African American GFR (CKD) >90 (>60 ml/min/1.73 sqM); Albumin 4.5 g/dL (3.5-5.0); Alkaline Phosphatase 81 U/L (38-126); Anion Gap 9 mmol/L; Blood Urea Nitrogen 14 mg/dL (9-20); Calcium 8.2 mg/dL (8.4-10.2); Carbon Dioxide 28 mmol/L (22-30); Chloride 112 mmol/L (98-107); Creatine Kinase 276 U/L (55-170); Glucose 100 mg/dL (74-99); Non-African American GFR(CKD) >90 (>60 ml/min/1.73 sqM); Potassium 4.3 mmol/L (3.5-5.1); Salicylate <1.0 mg/dL; Sodium 149 mmol/L (137-145); Total Bilirubin 0.2 mg/dL (0.2-1.3); Total Protein 7.5 g/dL (6.3-8.2)
[2022-12-08 09:17] LABS: Alcohol 399 mg/dL
--- NOTE | 2022-12-08 09:17 | XR ---
EXAMINATION TYPE: XR chest 2V DATE OF EXAM: 12/08/2022 COMPARISON: NONE TECHNIQUE: PA and lateral views submitted. HISTORY: altered mental status FINDINGS: The lungs are clear and there is no pneumothorax, pleural effusion, or focal pneumonia. Heart size normal and no overt failure. Osseous structures demonstrate hypertrophic and degenerative changes of the spine. Hyperinflation. IMPRESSION: 1. No acute process. Correlate for COPD.
--- NOTE | 2022-12-08 09:25 | CT ---
EXAMINATION TYPE: CT brain wo con DATE OF EXAM: 12/08/2022 COMPARISON: 11/11/2022 HISTORY: 37-year-old male confusion, Altered mental status TECHNIQUE: Examination was done in axial plane without intravenous contrast. Coronal and sagittal r econstructions performed. CT DLP: 1044.4 mGycm Automated exposure control for dose reduction was used. FINDINGS: There is no evidence of acute intracranial hemorrhage, acute ischemic changes, mass, mass-effect, or extra-axial fluid collection. There is no effacement of cerebral sulci or basal subarachnoid cister ns. There is no hydrocephalus. There is no midline shift. Barrett-white matter distinction is preserv ed. Symmetric prominent bilateral superior ophthalmic veins. Normal sella. Normal craniocervical junction . Trace mucosal thickening ethmoid air cells. There is leftward nasal septal deviation. Mastoid air gerard ls well pneumatized. IMPRESSION: Symmetric prominent bilateral superior ophthalmic veins. Findings are nonspecific. They may be seen i n the setting of increased intracranial pressures. However, no acute intracranial abnormality is seen .
[2022-12-08 09:45] LABS: Amphetamine Screen,Urine Not Detected (NotDetected); Barbiturate Screen,Urine Not Detected (NotDetected); Benzodiazepines Screen,Urine Not Detected (NotDetected); Cocaine Screen,Urine Not Detected (NotDetected); Methadone Screen, Urine Not Detected (NotDetected); Opiate Screen,Urine Not Detected (NotDetected); Oxycodone Screen, Urine Not Detected (NotDetected); Phencyclidine Screen,Urine Not Detected (NotDetected); Tricyclic Antidepressant,Urine Not Detected (NotDetected); Urn Cannabinoid Scrn Not Detected (NotDetected)
[2022-12-08] MEDS ORDERED: NALOXONE 0.4 MG/ML 1 ML VIAL IV PRN (09:57)
[2022-12-08] MEDS ORDERED: ONDANSETRON 4 MG/2 ML VIAL IVP PRN (09:57)
[2022-12-08] MEDS ORDERED: SODIUM CHLORIDE 0.9% 1,000 ML IV SCH (10:00)
[2022-12-08] MEDS ORDERED: LACTATED RINGERS 1,000 ML IV ONE (10:09)
[2022-12-08] MEDS ORDERED: THIAMINE 100 MG/ML 2 ML VIAL IM STA (12:46)
[2022-12-08] MEDS ORDERED: LORazepam 2 MG/ML INJ IV PRN ×3 (12:46)
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
[2022-12-08] MEDS: OXcarbazepine 150 MG TAB PO SCH ×2 (15:32→22:39)
[2022-12-08] MEDS ORDERED: OLANZapine 5 MG TAB PO SCH (21:00)
[2022-12-09 07:57] VITALS: BP 119/71; PULSE 78; RESP 18; TEMP 98
[2022-12-09] MEDS: OXcarbazepine 150 MG TAB PO SCH (08:42)
[2022-12-09] MEDS ORDERED: FOLIC ACID 1 MG TAB PO SCH (09:00)
[2022-12-09] MEDS ORDERED: ESCITALOPRAM 20 MG TAB PO SCH (09:00)
[2022-12-09] MEDS ORDERED: MULTIVITAMINS, THERA 1 EACH TAB PO SCH (09:00)
[2022-12-09] MEDS ORDERED: THIAMINE 100 MG TAB PO SCH (09:00)
[2022-12-09 10:53] LABS: Basophils # (A) 0.02 X 10*3/uL (0.00-0.10); Basophils % (A) 0.2 %; Eosinophils # (A) 0.12 X 10*3/uL (0.04-0.35); Eosinophils % (A) 1.4 %; HGB 13.5 g/dL (13.0-17.0); Immature Grans, Automated 0.4 %; Lymphocytes # (A) 2.08 X 10*3/uL (0.90-5.00); Lymphocytes % (A) 24.3 %; MCH 30.5 pg (27.0-32.0); MCHC 32.9 g/dL (32.0-37.0); MCV 92.6 fL (80.0-97.0); Mean Platelet Volume 10.1 fL (9.5-12.2); Monocytes # (A) 0.72 X 10*3/uL (0.20-1.00); Monocytes % (A) 8.4 %; NRBC Per 100 WBC 0 /100 WBCS (0.0-0.0); Neutrophils % (A) 65.3 %; Platelet Count 187 X 10*3/uL (140-440); RBC 4.43 X 10*6/uL (4.40-5.60); WBC 8.57 X 10*3/uL (4.50-10.00)
[2022-12-09 11:10] LABS: African American GFR (CKD) 130.4 (60.0-200.0); Anion Gap 8.8 mmol/L (10.00-18.00); BUN/Creat Ratio 18.88 Ratio (12.00-20.00); Blood Urea Nitrogen 15.1 mg/dL (9.0-27.0); Calcium 8.5 mg/dL (8.7-10.3); Carbon Dioxide 25.2 mmol/L (20.0-27.5); Non-African American GFR(CKD) 112.5 (60.0-200.0); Potassium 3.8 mmol/L (3.5-5.5)
--- NOTE | 2022-12-09 12:17 | P.DS ---
Providers Date of admission: 12/08/22 09:57 Expected date of discharge: 12/09/22 Attending physician: Sky Austin MD Primary care physician: Stated None Hospital Course: Discharge Diagnosis: Acute alcohol intoxication an active alcoholic. Patient is clinically sober. He is requesting discharge at this time. Patient strongly encouraged to avoid any and all alcohol use. Hypothermia secondary to cold exposure outdoors, patient was placed on Ciara hugger initially upon arrival secondary to hypothermia with rectal temp of 93.7F. Hypothermia has resolved status post rewarming and current temp is 98.0F orally. Hypernatremia, resolved Hyperchloremia, resolved Hospital Course: Patient is a very pleasant 37-year-old male with a past medical history of alcohol abuse reportedly drinking one fifth of alcohol daily. He presented to the emergency department secondary to reports of being found with altered mental status/decreased responsiveness. Per ED documentation, patient was found outside of the courthouse lying on the ground after reportedly making a makeshift bed with blankets. Patient was reportedly wearing a very light jacket and taken his shoes off. Patient was found by EMS to be intoxicated and brought to our facility for evaluation. Upon initial arrival patient was found to be hypothermic with a rectal temp of 93.7F requiring placement on Ciara hugger and administration of warmed IV fluids. Patient's body temp successfully increased to 97.5F orally after successful warming procedures. Vital signs otherwise st able with blood pressure 104/66, heart rate 72, respiratory rate 18, and SpO2 of 95% on room air. Labs completed and reviewed. CBC consistent with leukocytosis with WBC count of 12.0. BMP revealing hypernatremia with sodium 149 and hyperchloremia with chloride of 112. Glucose level stable at 100. Liver enzymes unremarkable. Troponin less than 0.012 and creatinine kinase slightly elevated at 276. Urinalysis negative for infection. Salicylates less than 1.0 and acetaminophen less than 10.0. Alcohol level was elevated at 399. Urine drug screen was negative. CT head completed and radiology report reviewed showing symmetric prominent bilateral superior ophthalmic veins and negative for acute intercranial abnormality showing no significant changes when compared to CT head completed 11/11/22. EKG completed showing sinus bradycardia at 59 bpm. Discussed in detail with ED physician. Patient admitted under our services for alcohol intoxication pending withdrawal. Hypothermia secondary to cold exposure outdoors, patient was placed on Ciara hugger initially upon arrival secondary to hypothermia with rectal temp of 93.7F. Hypothermia has resolved status post rewarming and current temp is 98.0F orally. Patient is medically stable and is alert and oriented to person, place, time, and situation. Patient is clinically sober and is requesting discharge at this time. Patient strongly encouraged to avoid any and all alcohol use. Physical exam: Vital signs reviewed and stable. General: Nontoxic, no distress and appears stated age. Derm: Skin warm and dry, normal coloration for ethnicity. Head: Atraumatic, normocephalic and symmetric. Eyes: EOMs intact, no lid lag, and anicteric sclera Mouth: no lip lesions, mucus membranes moist Cardiovascular: regular rate and rhythm with normal S1S2, no murmur, positive posterior tibial pulses bilaterally, and cap refill < 2 seconds. Lungs: Respirations even, regular, and unlabored on room air. Lungs CTA bilaterally, no rhonchi, no rales, no wheezing, and no accessory muscle usage. Abdominal: soft, nontender to palpation, no guarding, no appreciable organomegaly Ext: ROM intact. No gross muscle atrophy, no edema, no contractures Neuro: Speech clear, face symmetrical and CN II-XII grossly intact with no noted focal neuro deficits Psych: Alert and oriented to person, place, time, and situation. Appropriate and pleasant affect. A total of 31 minutes of time were spent preparing this complex discharge summary. Pt was discharged on 12/09/22 at 12:16 PM Patient was seen independently by Nurse Practitioner. This document was prepared using [employer] dictation software. Please allow for errors in supervisor grain and yeast plants while rare they do occur. This patient was seen independently by Phill Han NP, I agree with documentation as above with the following additions: None. Patient Condition at Discharge: Stable Plan - Discharge Summary Discharge Rx Participant: Yes New Discharge Prescriptions: No Action Escitalopram [Lexapro] 20 mg PO DAILY OXcarbazepine [Trileptal] 150 mg PO BID OLANZapine [ZyPREXA] 5 mg PO HS Discharge Medication List Escitalopram [Lexapro] 20 mg PO DAILY 10/22/22 [History] OLANZapine [ZyPREXA] 5 mg PO HS 12/08/22 [History] OXcarbazepine [Trileptal] 150 mg PO BID 12/08/22 [History] Follow up Appointment(s)/Referral(s): None,Stated [Primary Care Provider] - 1-2 days Patient Instructions/Handouts: Alcohol Intoxication (DC), Abuse of Alcohol (DC), Alcohol Withdrawal (DC) Activity/Diet/Wound Care/Special Instructions: Activity: As tolerated. Take breaks as needed. Diet: Regular diet. Special Instructions: Take all of your medications as directed and remember to keep all of your doctor's appointments and follow-up as needed. Strongly recommend cessation of all alcohol use. Thank you for allowing us to participate in your care, it was truly a pleasure having you for our patient!!! Discharge/Stand Alone Forms: AA Meetings [address] - [facility], AA Meetings [facility] Shelters, Who Do I Call?, Community Resources, Outpatient Counseling, Inp Substance Abuse Facilities Discharge Disposition: HOME SELF-CARE
== END 2022-12-09 12:58 | disposition home or self-care (01) ==
LOC: EC 08:17 → 6NMEDSUR 09:57
PROVIDERS: ADMIT Internal Medicine; ATTEND Internal Medicine
DX: F10.229 Alcohol dependence with intoxication, unspecified (principal); Y90.8 Blood alcohol level of 240 mg/100 ml or more; T68.XXXA Hypothermia, initial encounter; E87.0 Hyperosmolality and hypernatremia; R00.1 Bradycardia, unspecified; D72.829 Elevated white blood cell count, unspecified; R41.82 Altered mental status, unspecified; E87.8 Other disorders of electrolyte and fluid balance, not elsewhere classified; F17.200 Nicotine dependence, unspecified, uncomplicated; Z83.79 Family history of other diseases of the digestive system; Z79.899 Other long term (current) drug therapy
CPT/HCPCS: 96360; 99285; 36415; 93005; 80053; 80048; 82550; 84484; 85025 ×2; 81003; 80306; 80143; 80179; 71046; 70450; G0378 ×2; G0480; J3411; 80320

== ENCOUNTER 2023-08-27 19:42 | Emergency (ER) | payer OTHER ==
[2023-08-27 20:14] VITALS: TEMP 98.2
[2023-08-27] MEDS ORDERED: IBUPROFEN 800 MG TAB PO STA (20:43)
[2023-08-27] MEDS ORDERED: ACETAMINOPHEN TAB 500 MG TAB PO STA (20:43)
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
[2023-08-27 22:10] VITALS: BP 131/83; PULSE 89; RESP 18
== END 2023-08-27 22:51 | disposition home or self-care (01) ==
LOC: EC 19:42
DX: S80.02XA Contusion of left knee, initial encounter (principal); S46.911A Strain of unspecified muscle, fascia and tendon at shoulder and upper arm level, right arm, initial encounter; F32.A Depression, unspecified; Z79.899 Other long term (current) drug therapy; Z87.891 Personal history of nicotine dependence; V19.9XXA Pedal cyclist (driver) (passenger) injured in unspecified traffic accident, initial encounter; Y93.55 Activity, bike riding
CPT/HCPCS: 99284; 73060; 73562; L1830 ×2

== ENCOUNTER 2023-10-13 06:27 | Emergency (ER) | payer OTHER ==
--- NOTE | 2023-10-13 06:44 | ED ---
Abdominal Pain HPI - General Chief Complaint: Abdominal Pain Stated Complaint: abd pain Time Seen by Provider: 10/13/23 06:35 Source: patient, RN notes reviewed Mode of arrival: ambulatory Limitations: no limitations - History of Present Illness Initial Comments: This is a 38-year-old male who presents to the emergency department for abdominal pain. States that this is primarily in the left lower quadrant and started a couple of hours ago. Denies any nausea/vomiting. Also reports being unable to have a bowel movement for 2-3 days. Denies any pain going into the back. Denies any history of similar symptoms in the past or ever being diagnosed with diverticulosis. MD Complaint: abdominal pain - Related Data Home Medications Medication Instructions Recorded Confirmed Escitalopram [Lexapro] 20 mg PO DAILY 10/22/22 12/08/22 OLANZapine [ZyPREXA] 5 mg PO HS 12/08/22 12/08/22 OXcarbazepine [Trileptal] 150 mg PO BID 12/08/22 12/08/22 Allergies Allergy/AdvReac Type Severity Reaction Status Date / Time No Known Allergies Allergy Verified 10/13/23 06:34 Review of Systems ROS Statement: Those systems with pertinent positive or pertinent negative responses have been documented in the HPI. ROS Other: All systems not noted in ROS Statement are negative. 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 Absent: respiratory distress, wheezes, rales, rhonchi, stridor Cardiovascular Exam: Present: regular rate, normal rhythm, normal heart sounds. Absent: systolic murmur, diastolic murmur, rubs, gallop, clicks GI/Abdominal exam: Present: soft, tenderness (LLQ), normal bowel sounds. Absent: distended Neurological exam: Present: alert, oriented X3, CN II-XII intact Psychiatric exam: Present: normal affect, normal mood Skin exam: Present: warm, dry, intact, normal color. Absent: rash Course Vital Signs 10/13/23 10/13/23 06:28 08:28 Temperature 98.6 F Pulse Rate 114 H 101 H Respiratory 18 18 Rate Blood Pressure 139/87 103/84 O2 Sat by Pulse 99 98 Oximetry Medical Decision Making - Medical Decision Making This is a 38 year old male who presents to the emergency department for abdominal pain. Was pt. sent in by a medical professional or institution? @ -No Did you speak to anyone other than the patient for history? @ -No Did you review nursing and triage notes? @ -Yes, and I agree, it is accurate with regards to the patient's symptoms. Were old charts reviewed? @ -No Differential Diagnosis? @ -Differential Abdominal Pain Men: Appendicitis, cholecystitis, diverticulosis, ischemic bowel, pancreatitis, hepatitis, UTI, gastroenteritis, AAA, incarcerated hernia, bowel obstruction, constipation, inflammatory bowel, hepatitis, peptic ulcer disease, splenic infarction, perforated viscus, testicular torsion, this is not meant to be an all-inclusive list EKG interpreted by me (3pts min.)? @ -Not obtained X-rays interpreted by me (1pt min.)? @ -Not obtained CT interpreted by me (1pt min.)? @ -CT scan of the abdomen and pelvis obtained. My interpretation identifies no evidence of a ureteral calculus. U/S interpreted by me (1pt. min.)? @ -Not obtained What testing was considered but not performed? (CT, X-rays, U/S, labs)? Why? @ -None What meds were considered but not given? Why? @ -None Did you discuss the management of the patient with other professionals? @ -No Did you reconcile home meds? @ -No Was smoking cessation discussed for >3mins.? @ -No Was critical care preformed (if so, how long)? @ -No Were there social determinants of health that impacted care today? How? (Homelessness, low income, unemployed, alcoholism, drug addiction, transportation, low edu. Level, literacy, decrease access to med. care, custodial, rehab)? @ -No Was there de-escalation of care discussed even if they declined? (Discuss DNR or withdrawal of care, Hospice)? @ -No What co-morbidities impacted this encounter? (DM, HTN, Smoking, COPD, CAD, Cancer, CVA, Hep., AIDS, mental health diagnosis, sleep apnea, morbid obesity)? @ -None Was patient admitted / discharged? @ -Discharged. Lab work demonstrates leukocytosis and was otherwise unr emarkable. Urinalysis negative for signs of infection. CT scan of the abdomen and pelvis demonstrates prominent fluid-filled small bowel loops throughout the abdomen with liquid stool in the right side of the colon. There may be concurrent wall thickening of small bowel loops as well. They advised correlation for a nonspecific enteritis. Symptoms well-controlled in the emergency department and the patient was discharged home in stable condition. Advised ibuprofen and Tylenol as needed for pain relief and a stool softener such as MiraLAX if he has any additional problems with constipation. Otherwise advised follow-up with his primary care provider. Undiagnosed new problem with uncertain prognosis? @ -None Drug Therapy requiring intensive monitoring for toxicity (Heparin, Nitro, Insulin, Cardizem)? @ -None Were any procedures done? @ -None Diagnosis/symptom? @ -Abdominal pain, enteritis Acute, or Chronic, or Acute on Chronic? @ -Acute Uncomplicated (without systemic symptoms) or Complicated (systemic symptoms)? @ -Uncomplicated Side effects of treatment? @ -None Exacerbation, Progression, or Severe Exacerbation] @ -Not applicable Poses a threat to life or bodily function? @ -No Return precautions reviewed in depth, the patient is instructed to return to the emergency department with any new, worsening, or concerning symptoms. Patient verbalized understanding. This case was discussed in detail with the attending ED physician, Dr. Castillo. Presentation, findings, and treatment plan discussed in detail as well. - Lab Data Result diagrams: 10/13/23 06:40 10/13/23 06:40 Lab Results 10/13/23 10/13/23 10/13/23 Range/Units 06:40 06:40 06:40 WBC 12.8 H (3.8-10.6) k/uL RBC 4.91 (4.30-5.90) m/uL Hgb 15.7 (13.0-17.5) gm/dL Hct 46.1 (39.0-53.0) % MCV 93.8 (80.0-100.0) fL MCH 31.9 (25.0-35.0) pg MCHC 34.0 (31.0-37.0) g/dL RDW 12.7 (11.5-15.5) % Plt Count 274 (150-450) k/uL MPV 7.2 Neutrophils % 75 % Lymphocytes % 17 % Monocytes % 4 % Eosinophils % 2 % Basophils % 0 % Neutrophils # 9.6 H (1.3-7.7) k/uL Lymphocytes # 2.2 (1.0-4.8) k/uL Monocytes # 0.6 (0-1.0) k/uL Eosinophils # 0.2 (0-0.7) k/uL Basophils # 0.1 (0-0.2) k/uL Sodium 139 (137-145) mmol/L Potassium 4.0 (3.5-5.1) mmol/L Chloride 109 H (98-107) mmol/L Carbon Dioxide 27 (22-30) mmol/L Anion Gap 3 mmol/L BUN 16 (9-20) mg/dL Creatinine 1.09 (0.66-1.25) mg/dL Est GFR (CKD-EPI)AfAm >90 (>60 ml/min/1.73 sqM) Est GFR (CKD-EPI)NonAf 85 (>60 ml/min/1.73 sqM) Glucose 82 (74-99) mg/dL Plasma Lactic Acid Felix 0.6 L (0.7-2.0) mmol/L Calcium 9.1 (8.4-10.2) mg/dL Total Bilirubin 0.4 (0.2-1.3) mg/dL AST 35 (17-59) U/L ALT 33 (4-49) U/L Alkaline Phosphatase 82 (38-126) U/L Total Protein 6.5 (6.3-8.2) g/dL Albumin 4.2 (3.5-5.0) g/dL Amylase 74 (30-110) U/L Lipase 87 (23-300) U/L Urine Color Urine Appearance (Clear) Urine pH (5.0-8.0) Ur Specific [place] (1.001-1.035) Urine Protein (Negative) Urine Glucose (UA) (Negative) Urine Ketones (Negative) Urine Blood (Negative) Urine Nitrite (Negative) Urine Bilirubin (Negative) Urine Urobilinogen (<2.0) mg/dL Ur Leukocyte Esterase (Negative) 10/13/23 Range/Units 07:33 WBC (3.8-10.6) k/uL RBC (4.30-5.90) m/uL Hgb (13.0-17.5) gm/dL Hct (39.0-53.0) % MCV (80.0-100.0) fL MCH (25.0-35.0) pg MCHC (31.0-37.0) g/dL RDW (11.5-15.5) % Plt Count (150-450) k/uL MPV Neutrophils % % Lymphocytes % % Monocytes % % Eosinophils % % Basophils % % Neutrophils # (1.3-7.7) k/uL Lymphocytes # (1.0-4.8) k/uL Monocytes # (0-1.0) k/uL Eosinophils # (0-0.7) k/uL Basophils # (0-0.2) k/uL Sodium (137-145) mmol/L Potassium (3.5-5.1) mmol/L Chloride (98-107) mmol/L Carbon Dioxide (22-30) mmol/L Anion Gap mmol/L BUN (9-20) mg/dL Creatinine (0.66-1.25) mg/dL Est GFR (CKD-EPI)AfAm (>60 ml/min/1.73 sqM) Est GFR (CKD-EPI)NonAf (>60 ml/min/1.73 sqM) Glucose (74-99) mg/dL Plasma Lactic Acid Felix (0.7-2.0) mmol/L Calcium (8.4-10.2) mg/dL Total Bilirubin (0.2-1.3) mg/dL AST (17-59) U/L ALT (4-49) U/L Alkaline Phosphatase (38-126) U/L Total Protein (6.3-8.2) g/dL Albumin (3.5-5.0) g/dL Amylase (30-110) U/L Lipase (23-300) U/L Urine Color Colorless Urine Appearance Clear (Clear) Urine pH 5.5 (5.0-8.0) Ur Specific [place] 1.019 (1.001-1.035) Urine Protein Negative (Negative) Urine Glucose (UA) Negative (Negative) Urine Ketones Negative (Negative) Urine Blood Negative (Negative) Urine Nitrite Negative (Negative) Urine Bilirubin Negative (Negative) Urine Urobilinogen <2.0 (<2.0) mg/dL Ur Leukocyte Esterase Negative (Negative) - Radiology Data Radiology results: report reviewed, image reviewed Disposition Clinical Impression: Abdominal pain, Enteritis Disposition: HOME SELF-CARE Instructions (If sedation given, give patient instructions): Abdominal Pain (ED), Enteritis (ED) Additional Instructions: Return to the emergency department with any new, worsening, or concerning symptoms. Alternate with ibuprofen and Tylenol as needed for pain relief. Use an [id number] stool softener such as MiraLAX to help regulate the bowels. Follow up with your primary care provider in 1-2 days. Is patient prescribed a controlled substance at d/c from ED?: No Referrals: Annia Dong MD [Primary Care Provider] - 1-2 days Time of Disposition: 08:16
[2023-10-13] MEDS: SODIUM CHLORIDE 0.9% 1,000 ML IV STA (06:45)
[2023-10-13] MEDS: KETOROLAC 15 MG/ML 1 ML VIAL IVP STA (06:47)
[2023-10-13 06:57] VITALS: RESP 18; TEMP 98.6
[2023-10-13 06:59] LABS: Basophils # (A) 0.1 k/uL (0-0.2); Basophils % (A) 0 %; Eosinophils # (A) 0.2 k/uL (0-0.7); Eosinophils % (A) 2 %; HCT 46.1 % (39.0-53.0); HGB 15.7 gm/dL (13.0-17.5); Lymphocytes # (A) 2.2 k/uL (1.0-4.8); Lymphocytes % (A) 17 %; MCH 31.9 pg (25.0-35.0); MCV 93.8 fL (80.0-100.0); Mean Platelet Volume 7.2; Monocytes # (A) 0.6 k/uL (0-1.0); Monocytes % (A) 4 %; Neutrophils # (A) 9.6 k/uL (1.3-7.7); Neutrophils % (A) 75 %; Platelet Count 274 k/uL (150-450); RBC 4.91 m/uL (4.30-5.90); RDW 12.7 % (11.5-15.5); WBC 12.8 k/uL (3.8-10.6)
[2023-10-13 07:08] LABS: ALT 33 U/L (4-49); AST 35 U/L (17-59); African American GFR (CKD) >90 (>60 ml/min/1.73 sqM); Albumin 4.2 g/dL (3.5-5.0); Alkaline Phosphatase 82 U/L (38-126); Amylase 74 U/L (30-110); Anion Gap 3 mmol/L; Blood Urea Nitrogen 16 mg/dL (9-20); Calcium 9.1 mg/dL (8.4-10.2); Carbon Dioxide 27 mmol/L (22-30); Chloride 109 mmol/L (98-107); Glucose 82 mg/dL (74-99); Lipase 87 U/L (23-300); Non-African American GFR(CKD) 85 (>60 ml/min/1.73 sqM); Sodium 139 mmol/L (137-145); Total Bilirubin 0.4 mg/dL (0.2-1.3); Total Protein 6.5 g/dL (6.3-8.2)
[2023-10-13 07:42] LABS: Appearance,Urine Clear (Clear); Bilirubin,Urine Negative (Negative); Blood,Urine Negative (Negative); Color,Urine Colorless; Glucose,Urine (UA) Negative (Negative); Ketones,Urine Negative (Negative); Leukocyte Esterase,Urine Negative (Negative); Nitrite,Urine Negative (Negative); PH, Urine 5.5 (5.0-8.0); Protein,Urine Negative (Negative); Specific Gravity,Urine 1.019 (1.001-1.035); Urobilinogen,Urine <2.0 mg/dL (<2.0)
--- NOTE | 2023-10-13 08:04 | CT ---
EXAMINATION TYPE: CT abdomen pelvis w con DATE OF EXAM: 10/13/2023 COMPARISON: 10/22/2022 HISTORY: 38-year-old male LLQ pain and constipation TECHNIQUE: Contiguous axial scanning of the abdomen and pelvis following administration of 100 ml Iso bob 300 IV contrast. Delayed images through the kidneys and coronal/sagittal reconstructions perform ed. CT DLP: 718.2 mGycm Automated exposure control for dose reduction was used. FINDINGS: LUNG BASES: No significant abnormality is appreciated. LIVER/GB: No significant abnormality is appreciated. PANCREAS: No significant abnormality is seen. SPLEEN: Old calcified granulomas noted within the spleen. ADRENALS: No significant abnormality is seen. KIDNEYS: Less than 5 punctate renal calculi on each side measuring up to 4 mm. Symmetric uptake and e xcretion of contrast from both kidneys. No obstructing stone is identified. LYMPH NODES: No significant abnormality is seen. BOWEL: No dilated small bowel, free fluid, or free air. Prominent fluid-filled small bowel loops are present throughout the abdomen. Normal appendix. Some scattered liquid stool throughout the right bhavani e of the colon and mild solid stool within the left side of the colon. No pericolonic inflammatory ch anges. OTHER: No significant abnormality is seen. PELVIS: No significant abnormality is seen. BONES: No significant abnormality is seen. IMPRESSION: 1. PROMINENT FLUID-FILLED SMALL BOWEL LOOPS THROUGHOUT THE ABDOMEN WITH LIQUID STOOL IN THE RIGHT BHAVANI E OF THE COLON. THERE MAY BE MILD CONCURRENT WALL THICKENING OF SMALL BOWEL LOOPS WELL. CORRELATE FOR A NONSPECIFIC ENTERITIS. 2. BILATERAL NONOBSTRUCTIVE RENAL CALCULI MEASURING UP TO 4 MM. 3. ONLY MILD SCATTERED SOLID STOOL IN THE LEFT SIDE OF THE COLON.
[2023-10-13 08:46] VITALS: BP 103/84; PULSE 101
== END 2023-10-13 08:31 | disposition home or self-care (01) ==
LOC: EC 06:27
DX: K52.9 Noninfective gastroenteritis and colitis, unspecified (principal); N20.0 Calculus of kidney; F32.A Depression, unspecified; Z79.899 Other long term (current) drug therapy; Z87.891 Personal history of nicotine dependence
CPT/HCPCS: 36415; 80053; 82150; 83605; 83690; 85025; 81003; 74177; 99284; 96374; 96361; J1885; Q9967

== ENCOUNTER 2023-11-12 00:41 | Emergency (ER) | payer OTHER ==
[2023-11-12 00:52] VITALS: TEMP 97.3
--- NOTE | 2023-11-12 01:24 | ED ---
General Adult HPI - General Chief complaint: Abdominal Pain Stated complaint: abd pain Time Seen by Provider: 11/12/23 00:48 Source: patient, RN notes reviewed, old records reviewed Mode of arrival: ambulatory Limitations: no limitations - History of Present Illness Initial comments: 38-year-old male with generalized abdominal pain which began 2 or 3 hours prior to arrival. Patient states he feels like cramping gas pain. He has had no associated vomiting. No diarrhea. States his last bowel movement was yesterday and this was normal. He denies fever. - Related Data Home Medications Medication Instructions Recorded Confirmed Escitalopram [Lexapro] 20 mg PO DAILY 10/22/22 12/08/22 OLANZapine [ZyPREXA] 5 mg PO HS 12/08/22 12/08/22 OXcarbazepine [Trileptal] 150 mg PO BID 12/08/22 12/08/22 Allergies Allergy/AdvReac Type Severity Reaction Status Date / Time No Known Allergies Allergy Verified 11/12/23 00:43 Review of Systems ROS Statement: Those systems with pertinent positive or pertinent negative responses have been documented in the HPI. ROS Other: All systems not noted in ROS Statement are negative. 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 History of Any Multi-Drug Resistant Organisms: None Reported Past Surgical History: No Surgical Hx Reported Past Anesthesia/Blood Transfusion Reactions: No Reported Reaction Past Psychological History: Depression Smoking Status: Former smoker Past Alcohol Use History: Rare Past Drug Use History: None Reported - Past Family History Father Family Medical History: Liver Disease General Exam Limitations: no limitations General appearance: alert, in no apparent distress Head exam: Present: atraumatic, normocephalic Eye exam: Present: normal appearance, PERRL ENT exam: Present: normal exam Neck exam: Present: normal inspection Respiratory exam: Present: normal lung sounds bilaterally. Absent: respiratory distress, wheezes Cardiovascular Exam: Present: regular rate, normal rhythm GI/Abdominal exam: Present: distended, tenderness Extremities exam: Present: normal inspection, normal capillary refill Neurological exam: Present: alert, oriented X3 Psychiatric exam: Present: normal affect, normal mood Skin exam: Present: warm, dry, intact. Absent: cyanosis, diaphoretic Course Vital Signs 11/12/23 00:44 Temperature 97.3 F L Pulse Rate 106 H Respiratory 20 Rate Blood Pressure 145/115 O2 Sat by Pulse 96 Oximetry - Reevaluation(s) Reevaluation #1: 11/12/23 05:11 Patient reevaluated, feeling significantly improved, abdominal pain resolved. Patient states he has been passing gas and is feeling much better. Medical Decision Making - Medical Decision Making Was pt. sent in by a medical professional or institution (, KELI, RIGGING SUPERVISOR, urgent care, hospital, or jail...) When possible be specific @ -No Did you speak to anyone other than the patient for history (EMS, parent, family, police, friend...)? What history was obtained from this source @ -No Did you review nursing and triage notes (agree or disagree)? Why? @ -I reviewed and agree with nursing and triage notes Were old charts reviewed (outside hosp., previous admission, EMS record, old EKG, old radiological studies, urgent care reports/EKG's, jail records)? Report findings @ -No old charts were reviewed Differential Diagnosis @Differential Abdominal Pain Men: Appendicitis, cholecystitis, diverticulosis, ischemic bowel, pancreatitis, hepatitis, UTI, gastroenteritis, AAA, incarcerated hernia, bowel obstruction, constipation, inflammatory bowel, hepatitis, peptic ulcer disease, splenic infarction, perforated viscus, testicular torsion, this is not meant to be an all-inclusive list EKG interpreted by me (3pts min.). @ -As above X-rays interpreted by me (1pt min.). @ -None done CT interpreted by me (1pt min.). @CT abdomen shows distended nondilated colon, nonobstructing renal stones and colonic stool. No acute findings. U/S interpreted by me (1pt. min.). @ -None done What testing was considered but not performed or refused? (CT, X-rays, U/S, labs)? Why? @ -None What meds were considered but not given or refused? Why? @ -None Did you discuss the management of the patient with other professionals (professionals i.e. KELI Tang, RIGGING SUPERVISOR, lab, RT, psych nurse, social media coordinator, cage loader, teacher, port patrol officer, case mgr)? Give summary @ -No Was smoking cessation discussed for >3mins.? @ -No Was critical care preformed (if so, how long)? @ -No Were there social determinants of health that impacted care today? How? (Homelessness, low income, unemployed, alcoholism, drug addiction, transportation, low edu. Level, literacy, decrease access to med. care, [facility], rehab)? @ -No Was there de-escalation of care discussed even if they declined (Discuss DNR or withdrawal of care, Hospice)? DNR status @ -No What co-morbidities impacted this encounter? (DM, HTN, Smoking, COPD, CAD, Cancer, CVA, ARF, Chemo, Hep., AIDS, mental health diagnosis, sleep apnea, morbid obesity)? @ -None Was patient admitted / discharged? Hospital course, mention meds given and route, prescriptions, significant lab abnormalities, going to OR and other pertinent info. @ -38-year-old male with abdominal pain distention. Patient does have generalized tenderness and distention on exam. Vital signs are stable. He has relatively normal laboratory test including CBC, CMP, lactic acid. CT shows gaseous distention of the colon with distal stool, no other acute findings. P atient feels significantly better after symptomatic treatment and after having passed significant amount of gas. This is the second ER visit with similar symptoms. I do feel he would benefit from GI follow-up and possible colonoscopy. Return parameters discussed. Patient feels significantly better and is eager for discharge. Undiagnosed new problem with uncertain prognosis? @ -No Drug Therapy requiring intensive monitoring for toxicity (Heparin, Nitro, Insulin, Cardizem)? @ -No Were any procedures done? @ -No Diagnosis/symptom? @Abdominal pain Acute, or Chronic, or Acute on Chronic? @ -Acute Uncomplicated (without systemic symptoms) or Complicated (systemic symptoms)? @ -Default Side effects of treatment? @ -No Exacerbation, Progression, or Severe Exacerbation? @ -No Poses a threat to life or bodily function? How? (Chest pain, [place], [place], pneumonia, PE, COPD, DKA, ARF, appy, cholecystitis, CVA, Diverticulitis, Homicidal, Suicidal, threat to staff... and all critical care pts) @Low risk at this time - Lab Data Result diagrams: 11/12/23 01:25 11/12/23 01:25 Lab Results 11/12/23 11/12/23 11/12/23 Range/Units 01:25 01:25 01:25 WBC 11.8 H (3.8-10.6) k/uL RBC 4.79 (4.30-5.90) m/uL Hgb 14.8 (13.0-17.5) gm/dL Hct 44.2 (39.0-53.0) % MCV 92.2 (80.0-100.0) fL MCH 31.0 (25.0-35.0) pg MCHC 33.6 (31.0-37.0) g/dL RDW 12.2 (11.5-15.5) % Plt Count 240 (150-450) k/uL MPV 7.0 Neutrophils % 76 % Lymphocytes % 15 % Monocytes % 6 % Eosinophils % 1 % Basophils % 0 % Neutrophils # 9.0 H (1.3-7.7) k/uL Lymphocytes # 1.8 (1.0-4.8) k/uL Monocytes # 0.7 (0-1.0) k/uL Eosinophils # 0.1 (0-0.7) k/uL Basophils # 0.1 (0-0.2) k/uL PT 11.5 (10.0-12.5) sec INR 1.1 (<1.2) APTT 26.8 (22.0-30.0) sec Sodium 136 L (137-145) mmol/L Potassium 3.8 (3.5-5.1) mmol/L Chloride 108 H (98-107) mmol/L Carbon Dioxide 26 (22-30) mmol/L Anion Gap 2 mmol/L BUN 16 (9-20) mg/dL Creatinine 0.85 (0.66-1.25) mg/dL Est GFR (CKD-EPI)AfAm >90 (>60 ml/min/1.73 sqM) Est GFR (CKD-EPI)NonAf >90 (>60 ml/min/1.73 sqM) Glucose 106 H (74-99) mg/dL Plasma Lactic Acid Felix (0.7-2.0) mmol/L Calcium 9.0 (8.4-10.2) mg/dL Total Bilirubin 0.9 (0.2-1.3) mg/dL AST 33 (17-59) U/L ALT 35 (4-49) U/L Alkaline Phosphatase 84 (38-126) U/L Total Protein 6.7 (6.3-8.2) g/dL Albumin 4.3 (3.5-5.0) g/dL Amylase 60 (30-110) U/L Lipase 102 (23-300) U/L Urine Color Urine Appearance (Clear) Urine pH (5.0-8.0) Ur Specific [place] (1.001-1.035) Urine Protein (Negative) Urine Glucose (UA) (Negative) Urine Ketones (Negative) Urine Blood (Negative) Urine Nitrite (Negative) Urine Bilirubin (Negative) Urine Urobilinogen (<2.0) mg/dL Ur Leukocyte Esterase (Negative) Serum Alcohol <10 mg/dL 11/12/23 11/12/23 Range/Units 01:25 02:27 WBC (3.8-10.6) k/uL RBC (4.30-5.90) m/uL Hgb (13.0-17.5) gm/dL Hct (39.0-53.0) % MCV (80.0-100.0) fL MCH (25.0-35.0) pg MCHC (31.0-37.0) g/dL RDW (11.5-15.5) % Plt Count (150-450) k/uL MPV Neutrophils % % Lymphocytes % % Monocytes % % Eosinophils % % Basophils % % Neutrophils # (1.3-7.7) k/uL Lymphocytes # (1.0-4.8) k/uL Monocytes # (0-1.0) k/uL Eosinophils # (0-0.7) k/uL Basophils # (0-0.2) k/uL PT (10.0-12.5) sec INR (<1.2) APTT (22.0-30.0) sec Sodium (137-145) mmol/L Potassium (3.5-5.1) mmol/L Chloride (98-107) mmol/L Carbon Dioxide (22-30) mmol/L Anion Gap mmol/L BUN (9-20) mg/dL Creatinine (0.66-1.25) mg/dL Est GFR (CKD-EPI)AfAm (>60 ml/min/1.73 sqM) Est GFR (CKD-EPI)NonAf (>60 ml/min/1.73 sqM) Glucose (74-99) mg/dL Plasma Lactic Acid Felix 0.7 (0.7-2.0) mmol/L Calcium (8.4-10.2) mg/dL Total Bilirubin (0.2-1.3) mg/dL AST (17-59) U/L ALT (4-49) U/L Alkaline Phosphatase (38-126) U/L Total Protein (6.3-8.2) g/dL Albumin (3.5-5.0) g/dL Amylase (30-110) U/L Lipase (23-300) U/L Urine Color Colorless Urine Appearance Clear (Clear) Urine pH 6.0 (5.0-8.0) Ur Specific [place] 1.012 (1.001-1.035) Urine Protein Negative (Negative) Urine Glucose (UA) Negative (Negative) Urine Ketones Negative (Negative) Urine Blood Negative (Negative) Urine Nitrite Negative (Negative) Urine Bilirubin Negative (Negative) Urine Urobilinogen <2.0 (<2.0) mg/dL Ur Leukocyte Esterase Negative (Negative) Serum Alcohol mg/dL Disposition Clinical Impression: Abdominal pain Disposition: HOME SELF-CARE Condition: Fair Instructions (If sedation given, give patient instructions): Abdominal Pain (ED) Is patient prescribed a controlled substance at d/c from ED?: No Referrals: Annia Dong MD [Primary Care Provider] - 1-2 days Kimberly Mcdowell MD [STAFF PHYSICIAN] - 1-2 days Time of Disposition: 05:13
[2023-11-12] MEDS: HYDROmorphone 1 MG/ML 1 ML SYRINGE IVP STA (01:30)
[2023-11-12] MEDS: DICYCLOMINE 10 MG/ML 2 ML AMP IM STA (01:31)
[2023-11-12 01:33] LABS: Basophils # (A) 0.1 k/uL (0-0.2); Basophils % (A) 0 %; Eosinophils # (A) 0.1 k/uL (0-0.7); Eosinophils % (A) 1 %; HCT 44.2 % (39.0-53.0); HGB 14.8 gm/dL (13.0-17.5); Lymphocytes # (A) 1.8 k/uL (1.0-4.8); Lymphocytes % (A) 15 %; MCHC 33.6 g/dL (31.0-37.0); MCV 92.2 fL (80.0-100.0); Monocytes # (A) 0.7 k/uL (0-1.0); Monocytes % (A) 6 %; Neutrophils % (A) 76 %; Platelet Count 240 k/uL (150-450); RBC 4.79 m/uL (4.30-5.90); RDW 12.2 % (11.5-15.5); WBC 11.8 k/uL (3.8-10.6)
[2023-11-12] MEDS: SODIUM CHLORIDE 0.9% 1,000 ML IV STA (01:34)
[2023-11-12 01:43] LABS: INR 1.1 (<1.2); Partial Thromboplastin Time 26.8 sec (22.0-30.0); Prothrombin Time 11.5 sec (10.0-12.5)
[2023-11-12 01:50] LABS: ALT 35 U/L (4-49); AST 33 U/L (17-59); African American GFR (CKD) >90 (>60 ml/min/1.73 sqM); Albumin 4.3 g/dL (3.5-5.0); Alcohol <10 mg/dL; Alkaline Phosphatase 84 U/L (38-126); Amylase 60 U/L (30-110); Anion Gap 2 mmol/L; Blood Urea Nitrogen 16 mg/dL (9-20); Carbon Dioxide 26 mmol/L (22-30); Chloride 108 mmol/L (98-107); Glucose 106 mg/dL (74-99); Lipase 102 U/L (23-300); Non-African American GFR(CKD) >90 (>60 ml/min/1.73 sqM); Potassium 3.8 mmol/L (3.5-5.1); Sodium 136 mmol/L (137-145); Total Bilirubin 0.9 mg/dL (0.2-1.3); Total Protein 6.7 g/dL (6.3-8.2)
[2023-11-12 02:36] LABS: Appearance,Urine Clear (Clear); Bilirubin,Urine Negative (Negative); Blood,Urine Negative (Negative); Color,Urine Colorless; Glucose,Urine (UA) Negative (Negative); Ketones,Urine Negative (Negative); Leukocyte Esterase,Urine Negative (Negative); Nitrite,Urine Negative (Negative); Protein,Urine Negative (Negative); Specific Gravity,Urine 1.012 (1.001-1.035); Urobilinogen,Urine <2.0 mg/dL (<2.0)
--- NOTE | 2023-11-12 05:07 | CT ---
EXAM: CT Abdomen and Pelvis With Intravenous Contrast CLINICAL HISTORY: CT Reason: abdominal pain TECHNIQUE: Axial computed tomography images of the abdomen and pelvis with intravenous contrast. CTDI is 15.2 mGy and DLP is 768.1 mGy-cm. This CT exam was performed using one or more of the following dose reduction techniques: automated exposure control, adjustment of the mA and/or kV according to patient size, and/or use of iterative reconstruction technique. COMPARISON: October 13, 2023 FINDINGS: Lung bases: Unremarkable. No mass. No consolidation. ABDOMEN: Liver: Unremarkable. No mass. Gallbladder and bile ducts: Unremarkable. No calcified stones. No ductal dilation. Pancreas: Unremarkable. No mass. No ductal dilation. Spleen: Unremarkable. No splenomegaly. Adrenals: Unremarkable. No mass. Kidneys and ureters: Delayed images show normal renal contrast excretion bilaterally. There are 5 calculi in the right kidney and 3 calculi in the left kidney measuring 2-4 mm. No hydronephrosis or ureterolithiasis is seen. Stomach and bowel: There are several gas fluid levels within a distended but nondilated colon suggesting ileus. 6.6 cm of stool in the rectum indicates possible mild constipation. No focal inflammatory changes are identified. The appendix is normal. No mucosal thickening. PELVIS: Appendix: See above. Bladder: Unremarkable. No mass. Reproductive: Unremarkable as visualized. ABDOMEN and PELVIS: Intraperitoneal space: Unremarkable. No free air. No significant fluid collection. Bones/joints: No acute fracture. No dislocation. Soft tissues: Possible subcutaneous contusion over the lateral aspect of the right iliac crest. No hip or pelvic fracture is seen. Vasculature: Unremarkable. No abdominal aortic aneurysm. Lymph nodes: Unremarkable. No enlarged lymph nodes. IMPRESSION: 1. There are 5 calculi in the right kidney and 3 calculi in the left kidney measuring 2-4 mm. No hydronephrosis or ureterolithiasis is seen. 2. There are several gas fluid levels within a distended but nondilated colon suggesting ileus. 6.6 cm of stool in the rectum indicates possible mild constipation. No focal inflammatory changes are identified. The appendix is normal.
[2023-11-12 06:00] VITALS: BP 120/79; PULSE 83; RESP 14
== END 2023-11-12 05:50 | disposition home or self-care (01) ==
LOC: EC 00:41
DX: N20.0 Calculus of kidney (principal); Z87.891 Personal history of nicotine dependence
CPT/HCPCS: 36415; 80053; 82150; 83605; 83690; 85025; 85610; 85730; 81003; 74177; 99284; 96374; 96372; 96361; G0480; J0500; J1170; Q9967; 80320

== ENCOUNTER 2024-04-12 20:37 | Emergency (ER) | payer OTHER ==
[2024-04-12 20:41] VITALS: RESP 18
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
[2024-04-12] MEDS: DIPH,PERTUS(ACELL)TETVAC-LF 0.5 ML VIAL IM ONE (21:30)
[2024-04-12] MEDS: LIDOCAINE 1% INJ 10MG/ML (20 ML MDV) SQ ONE (21:31)
[2024-04-12 23:31] VITALS: BP 141/90; PULSE 88; TEMP 98.6
== END 2024-04-12 23:31 | disposition home or self-care (01) ==
LOC: EC 20:37
CPT/HCPCS: 12014; 90471; 90715; 99283

== ENCOUNTER 2024-08-16 12:11 | Emergency (ER) | payer OTHER ==
[2024-08-16 12:18] VITALS: TEMP 98.1
--- NOTE | 2024-08-16 12:21 | ED ---
Fall HPI - General Chief Complaint: Fall Stated Complaint: Fall- Ear Split Time Seen by Provider: 08/16/24 12:21 Source: patient, RN notes reviewed Mode of arrival: ambulatory - History of Present Illness Initial Comments: This is a 38-year-old male with no significant medical history presenting to the emergency department for chief complaint of a laceration to his right ear. P mimapj states that earlier today at 0200 this morning he tripped over a TV stand falling onto the right side of his ear causing a laceration. He denies loss of conscious the time the injury or presyncopal symptoms, states that he tripped. Believes his last tetanus vaccination was 3 years ago. He denies tenderness, headaches, blurry double vision, nausea or vomiting. Currently states that he is feeling well. No other injuries at the time of the fall. No other acute complaints at this time. - Related Data Home Medications Medication Instructions Recorded Confirmed Escitalopram [Lexapro] 20 mg PO DAILY 10/22/22 12/08/22 OLANZapine [ZyPREXA] 5 mg PO HS 12/08/22 12/08/22 OXcarbazepine [Trileptal] 150 mg PO BID 12/08/22 12/08/22 Previous Rx's Medication Instructions Recorded Cephalexin [Keflex] 500 mg PO Q12HR 7 Days #14 cap 04/12/24 Allergies Allergy/AdvReac Type Severity Reaction Status Date / Time No Known Allergies Allergy Verified 08/16/24 12:14 Review of Systems ROS Statement: Those systems with pertinent positive or pertinent negative responses have been documented in the HPI. ROS Other: All systems not noted in ROS Statement are negative. 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 Absent: tenderness, meningismus, lymphadenopathy Respiratory exam: Present: normal lung sounds bilaterally. Absent: respiratory distress, wheezes, rales, rhonchi, stridor Cardiovascular Exam: Present: regular rate, normal rhythm, normal heart sounds. Absent: systolic murmur, diastolic murmur, rubs, gallop, clicks GI/Abdominal exam: Present: soft, normal bowel sounds. Absent: distended, tenderness, guarding, rebound, rigid Extremities exam: Present: normal inspection, full ROM, normal capillary refill. Absent: tenderness, pedal edema, joint swelling, calf tenderness Skin exam: Present: warm, dry, intact, normal color. Absent: rash Course Vital Signs 08/16/24 12:14 Temperature 98.1 F Pulse Rate 108 H Respiratory 20 Rate Blood Pressure 149/68 O2 Sat by Pulse 96 Oximetry Procedures - Laceration Laceration #1 Consent Obtained: verbal consent Indication: laceration Site: other (right ear) Description: linear Depth: simple, single layer (involving cartilage) Anesthesia Technique: nerve block Amount (mls): 4 (auricular block) Pre-repair: irrigated extensively Type of Sutures: nylon, vicryl Size of Sutures: 5-0 Number of Sutures: 8 (5 absorbable, 3 non-absorbable ) Technique: simple, interrupted Patient Tolerated Procedure: well, no complications Medical Decision Making - Medical Decision Making Was pt. sent in by a medical professional or institution ([facility], [employer], urgent care, hospital, or fpc...) When possible be specific @ -No Did you speak to anyone other than the patient for history (EMS, parent, family, police, friend...)? What history was obtained from this source @ -No Did you review nursing and triage notes (agree or disagree)? Why? @ -I reviewed and agree with nursing and triage notes Were old charts reviewed (outside hosp., previous admission, EMS record, old EKG, old radiological studies, urgent care reports/EKG's, fpc records)? Report findings @ -No old charts were reviewed Differential Diagnosis (chest pain, altered mental status, abdominal pain women, abdominal pain men, vaginal bleeding, weakness, fever, dyspnea, syncope, headache, dizziness, GI bleed, back pain, seizure, CVA, palpatations, mental health, musculoskeletal)? @ -auricular hematoma, auricular laceration, concussion, this list is not all inclusive EKG interpreted by me (3pts min.). @ -None X-rays interpreted by me (1pt min.). @ -None done CT interpreted by me (1pt min.). @ -None done U/S interpreted by me (1pt. min.). @ -None done What testing was considered but not performed or refused? (CT, X-rays, U/S, labs)? Why? @ -None What meds were considered but not given or refused? Why? @ -None Did you discuss the management of the patient with other professionals (professionals i.e. , PA, SOLAR ENERGY SYSTEMS DESIGNER, lab, RT, psych nurse, child protective services social worker, treater, teacher, radiation officer, onsite case manager)? Give summary @ -No Was smoking cessation discussed for >3mins.? @ -No Was critical care preformed (if so, how long)? @ -No Were there social determinants of health that impacted care today? How? (Homelessness, low income, unemployed, alcoholism, drug addiction, transportation, low edu. Level, literacy, decrease access to med. care, long-term, rehab)? @ -No Was there de-escalation of care discussed even if they declined (Discuss DNR or withdrawal of care, Hospice)? DNR status @ -No What co-morbidities impacted this encounter? (DM, HTN, Smoking, COPD, CAD, Cancer, CVA, ARF, Chemo, Hep., AIDS, mental health diagnosis, sleep apnea, morbid obesity)? @ -None Was patient admitted / discharged? Hospital course, mention meds given and route, prescriptions, significant lab abnormalities, going to OR and other pertinent info. @ -Discharge. 38-year-old male presenting with a laceration to the right ear that is approximately 4 cm with cartilage involvement. Area was cleansed with sterile water. auricular nerve block performed with lidocaine. 5 simple interrupted sutures placed over cartilage with 5-0 absorbable Vicryl in addition to 3 simple interrupted sutures placed with 5-0 nylon. Patient ear is wrapped with Chano bandage in addition to 4 x 4 gauze covering ear to minimize hematoma formation. Recommend the patient continue Tylenol Motrin as needed for pain relief in addition to icing the area. Have patient report back to the emergency department or to PCP in 7 days for nonabsorbable suture removal. Case discussed with Dr. Garza Undiagnosed new problem with uncertain prognosis? @ -No Drug Therapy requiring intensive monitoring for toxicity (Heparin, Nitro, Insulin, Cardizem)? @ -No Were any procedures done? @ -No Diagnosis/symptom? @ -auricular trauma/laceration Acute, or Chronic, or Acute on Chronic? @ -acute Uncomplicated (without systemic symptoms) or Complicated (systemic symptoms)? @ -uncomplicated Side effects of treatment? @ -No Exacerbation, Progression, or Severe Exacerbation? @ -No Poses a threat to life or bodily function? How? (Chest pain, [place], [place], pneumonia, PE, COPD, DKA, ARF, appy, cholecystitis, CVA, Diverticulitis, Homicidal, Suicidal, threat to staff... and all critical care pts) @ -No Disposition Clinical Impression: Laceration of ear Disposition: HOME SELF-CARE Condition: Good Instructions (If sedation given, give patient instructions): Care For Your Stitches (ED) Additional Instructions: Please return to the Emergency Department if symptoms worsen or any other concerns. Return to the emergency department or your primary care provider in 5 to 7 days for suture removal. Is patient prescribed a controlled substance at d/c from ED?: No Referrals: Annia Dong MD [Primary Care Provider] - 1-2 days Time of Disposition: 13:28
[2024-08-16] MEDS: LIDOCAINE 1% INJ 10MG/ML (20 ML MDV) SQ ONE (12:39)
[2024-08-16 13:36] VITALS: BP 137/89; PULSE 91; RESP 18
== END 2024-08-16 13:35 | disposition home or self-care (01) ==
LOC: EC 12:11
DX: S01.311A Laceration without foreign body of right ear, initial encounter (principal); Z87.891 Personal history of nicotine dependence; W01.0XXA Fall on same level from slipping, tripping and stumbling without subsequent striking against object, initial encounter
CPT/HCPCS: 12013; 99283; J2003

== ENCOUNTER → 2024-11-01 | Outpatient (CLI) | payer OTHER ==
--- NOTE | 2024-11-01 07:53 | US ---
EXAMINATION TYPE: US carotid duplex BILAT DATE OF EXAM: 11/01/2024 COMPARISON: NONE CLINICAL INDICATION: Male, 39 years old with history of R29.6 Recurrent falls; R26.89 Balance problem s; Ringing in ears per patient. No HTN. No hx tia. Additional History: .... TECHNIQUE: Grayscale, color Doppler and spectral Doppler evaluation of the bilateral carotid systems and vertebral arteries. Indirect Doppler criteria was utilized. FINDINGS: EXAM MEASUREMENTS: RIGHT: Peak Systolic Velocity (PSV) cm/sec ----- Right CCA: 131.7 ----- Right ICA: 95.8 ----- Right ECA: 80.1 ICA/CCA ratio: 0.7 RIGHT: End Diastole cm/sec ----- Right CCA: 31.4 ----- Right ICA: 20.2 ----- Right ECA: 17.5 LEFT: Peak Systolic Velocity (PSV) cm/sec ----- Left CCA: 94.1 ----- Left ICA: 83.4 ----- Left ECA: 86.4 ICA/CCA ratio: 0.9 LEFT: End Diastole cm/sec ----- Left CCA: 23.7 ----- Left ICA: 38.0 ----- Left ECA: 22.6 VERTEBRALS (direction of flow): Right Vertebral: Antegrade Left Vertebral: Antegrade Rhythm: Normal FILM DEVELOPER NOTES: No plaque, wall thickening or elevated velocities. Color Doppler imaging shows patency with blood flow throughout the carotid artery. Spectral waveforms are within normal limits. IMPRESSION: Right: No hemodynamically significant stenosis. Left: No hemodynamically significant stenosis. Criteria for Assigning % of Stenosis / Diameter reduction (Estimation based on the indirect measurements of the internal carotid artery velocities (ICA PSV). 1. Normal (no stenosis)=ICA PSV < 180 cm/s: ratio < 2.0: ICA EDV<40 cm/s. 2. Less than 50% stenosis=ICA PSV < 180 cm/s: ratio < 2.0: ICA EDV<40 cm/s. 3. 50 to 69% stenosis=ICA PSV of 180 to 230 cm/s: ration 2.0 ? 4.0: ICA EDV 40-100 cm/s. PSV 125-180 cm/sec and ICA/CCA PSV Ratio ? 2.0 is also consistent with 50-69% stenosis 4. Greater than 70% stenosis to near occlusion= ICA PSV > 230 cm/s: ratio > 4.0: ICA EDV > 100 cm/s. 5. Near occlusion= ICA PSV velocities may be low or undetectable: variable ratio and ICA EDV. 6. Total occlusion=unable to detect flow. [facility], , 11/01/2024 7:51 AM
== END | disposition home or self-care (01) ==
LOC: RADCTMAIN 07:21
PROVIDERS: ATTEND Family Medicine
DX: I65.23 Occlusion and stenosis of bilateral carotid arteries (principal); R29.6 Repeated falls; R26.89 Other abnormalities of gait and mobility
CPT/HCPCS: 93880

== ENCOUNTER 2024-11-03 17:14 | Emergency (ER) | payer OTHER ==
[2024-11-03 17:20] LABS: Glucose,Whole Blood 125 mg/dL (70-110)
[2024-11-03 17:25] VITALS: TEMP 98.2
[2024-11-03 17:54] LABS: Basophils % (A) 0 %; Eosinophils # (A) 0.2 k/uL (0-0.7); Eosinophils % (A) 2 %; HCT 44.7 % (39.0-53.0); HGB 14.7 gm/dL (13.0-17.5); Lymphocytes # (A) 2.8 k/uL (1.0-4.8); Lymphocytes % (A) 29 %; MCH 29.5 pg (25.0-35.0); MCHC 32.9 g/dL (31.0-37.0); MCV 89.6 fL (80.0-100.0); Mean Platelet Volume 7.1; Monocytes # (A) 0.5 k/uL (0-1.0); Monocytes % (A) 5 %; Neutrophils # (A) 5.8 k/uL (1.3-7.7); Neutrophils % (A) 62 %; Platelet Count 235 k/uL (150-450); RBC 4.99 m/uL (4.30-5.90); RDW 12.5 % (11.5-15.5); WBC 9.4 k/uL (3.8-10.6)
[2024-11-03 18:11] LABS: Appearance,Urine Clear (Clear); Bilirubin,Urine Negative (Negative); Blood,Urine Negative (Negative); Color,Urine Colorless; Glucose,Urine (UA) Negative (Negative); Ketones,Urine Negative (Negative); Leukocyte Esterase,Urine Negative (Negative); Nitrite,Urine Negative (Negative); Protein,Urine Negative (Negative); Specific Gravity,Urine 1.005 (1.001-1.035); Urobilinogen,Urine <2.0 mg/dL (<2.0)
[2024-11-03 18:31] LABS: Glucose,Whole Blood 164 mg/dL (70-110)
[2024-11-03 18:41] LABS: Amphetamine Screen,Urine Not Detected (NotDetected); Barbiturate Screen,Urine Not Detected (NotDetected); Benzodiazepines Screen,Urine Not Detected (NotDetected); Cocaine Screen,Urine Not Detected (NotDetected); Methadone Screen, Urine Not Detected (NotDetected); Opiate Screen,Urine Not Detected (NotDetected); Oxycodone Screen, Urine Not Detected (NotDetected); Phencyclidine Screen,Urine Not Detected (NotDetected); Tricyclic Antidepressant,Urine Not Detected (NotDetected); Urn Cannabinoid Scrn Not Detected (NotDetected)
[2024-11-03 18:44] LABS: ALT 44 U/L (4-49); AST 33 U/L (17-59); Acetaminophen <10.0 ug/mL; African American GFR (CKD) >90 (>60 ml/min/1.73 sqM); Albumin 4.3 g/dL (3.5-5.0); Alcohol <10 mg/dL; Alkaline Phosphatase 76 U/L (38-126); Anion Gap 9 mmol/L; Blood Urea Nitrogen 18 mg/dL (9-20); Calcium 8.8 mg/dL (8.4-10.2); Carbon Dioxide 28 mmol/L (22-30); Chloride 102 mmol/L (98-107); Creatine Kinase 101 U/L (55-170); Glucose 119 mg/dL (74-99); Non-African American GFR(CKD) >90 (>60 ml/min/1.73 sqM); Potassium 3.6 mmol/L (3.5-5.1); Salicylate <1.0 mg/dL; Sodium 139 mmol/L (137-145); Total Bilirubin 0.4 mg/dL (0.2-1.3); Total Protein 6.7 g/dL (6.3-8.2)
[2024-11-03] MEDS: SODIUM CHLORIDE 0.9% 1,000 ML IV STA (18:47)
[2024-11-03 19:13] LABS: Glucose,Whole Blood 103 mg/dL (70-110)
[2024-11-03 19:54] LABS: Glucose,Whole Blood 110 mg/dL (70-110)
[2024-11-03 20:25] VITALS: PULSE 98
[2024-11-03 21:13] LABS: Glucose,Whole Blood 159 mg/dL (70-110)
--- NOTE | 2024-11-03 21:18 | ED ---
General Adult HPI - General Chief complaint: Recheck/Abnormal Lab/Rx Stated complaint: hypoglycemia Time Seen by Provider: 11/03/24 17:35 Source: patient, EMS, RN notes reviewed, old records reviewed Mode of arrival: EMS - History of Present Illness Initial comments: Patient is a 39-year-old male who presents emergency department for hypoglycemia. Patient has a history of substance abuse. Patient was found laying next to his bike on the side of the road. Patient states he was resting after he was riding his bike today. Is nice out, and wanted to feel high and therefore he took 20 tablets of SIPphone dextromethorphan. He took 20 tablets last night at approximately 8 PM and then 20 additional tablets at approximately 1 PM today. Denies any complaints. Denies any chest pain or shortness of breath. Does endorse feeling lightheaded. States this is the intended side effect of the medication. Denies any suicidal or homicidal ideations, times, plans. Denies any visual or auditory hallucinations. Did not eat much today. And was found to have hypoglycemia in the 40s. Was brought here for further evaluation at this time. No history of diabetes. No history of diabetic medications in use.He states he did not fall off his bike but rather was resting and laid his bike down and then laid down next to his bike in the grass. - Related Data Home Medications Medication Instructions Recorded Confirmed No Known Home Medications 09/22/24 09/22/24 Allergies Allergy/AdvReac Type Severity Reaction Status Date / Time No Known Allergies Allergy Verified 11/03/24 17:25 Review of Systems ROS Statement: Those systems with pertinent positive or pertinent negative responses have been documented in the HPI. Review of Systems: CONST: Denies fever EYES: Denies blurry vision ENT: Denies nasal congestion C/V: Denies Chest pain RESP: Denies shortness of breath GI: Denies abdominal pain : Denies dysuria SKIN: Denies rash. MSK: Denies joint pain. NEURO: Denies headache ROS Other: All systems not noted in ROS Statement are negative. 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 HEAD: Normal with no signs of head trauma. EYES: PERRLA, EOMI, conjunctiva normal, no discharge. Pupils are 3 mm and equal bilaterally. ENT: Hearing grossly intact, normal oropharynx. RESPIRATORY: Clear breath sounds bilaterally. No wheezes, rales, or rhonchi. C/V: Regular rate and rhythm. S1 and S2 auscultated, no edema, peripheral pulses 2+ and intact throughout ABD: Abd is soft, nontender, nondistended EXT: Normal range of motion, no obvious deformity SKIN: No rashes or lesions observed on exposed skin. NEURO: Alert and oriented x 4. Cranial nerves II-XII intact. No focal sensory or strength deficits. GCS of 15. Course Vital Signs 11/03/24 11/03/24 11/03/24 17:16 18:49 20:25 Temperature 98.2 F Pulse Rate 98 100 98 Respiratory 18 20 15 Rate Blood Pressure 143/87 124/90 O2 Sat by Pulse 99 97 100 Oximetry Medical Decision Making - Medical Decision Making Was pt. sent in by a medical professional or institution (, KELI, SENIOR RESTAURANT MANAGER, urgent care, hospital, or care home...) When possible be specific @ -No Did you speak to anyone other than the patient for history (EMS, parent, family, police, friend...)? What history was obtained from this source @ -Spoke with EMS who states that they found the patient laying down on the ground next to his bike. Was found to be hypoglycemic at the scene. Patient does corroborate the story. Did you review nursing and triage notes (agree or disagree)? Why? @ -I reviewed and agree with nursing and triage notes Were old charts reviewed (outside hosp., previous admission, EMS record, old EKG, old radiological studies, urgent care reports/EKG's, care home records)? Report findings @ -No old charts were reviewed Differential Diagnosis (chest pain, altered mental status, abdominal pain women, abdominal pain men, vaginal bleeding, weakness, fever, dyspnea, syncope, headache, dizziness, GI bleed, back pain, seizure, CVA, palpatations, mental health, musculoskeletal)? @ -Drug abuse, hypoglycemia, electrolyte abnormality. This list is not all inclusive. EKG interpreted by me (3pts min.). @ -As above X-rays interpreted by me (1pt min.). @ -None done CT interpreted by me (1pt min.). @ -None done U/S interpreted by me (1pt. min.). @ -None done What testing was considered but not performed or refused? (CT, X-rays, U/S, labs)? Why? @ -None What meds were considered but not given or refused? Why? @ -None Did you discuss the management of the patient with other professionals (professionals i.e. , PA, SENIOR RESTAURANT MANAGER, lab, RT, psych nurse, social media marketing manager, trial lawyer, teacher, aeronautical engineering officer, case sealer)? Give summary @ -Poison control was contacted and recommended an observation period of at least 4 hours. Recommended overdose workup. Hypoglycemia can be a side effect of the dextromethorphan. Was smoking cessation discussed for >3mins.? @ -No Was critical care preformed (if so, how long)? @ -No Were there social determinants of health that impacted care today? How? (Homelessness, low income, unemployed, alcoholism, drug addiction, transportation, low edu. Level, literacy, decrease access to med. care, residential, rehab)? @ -No Was there de-escalation of care discussed even if they declined (Discuss DNR or withdrawal of care, Hospice)? DNR status @ -No What co-morbidities impacted this encounter? (DM, HTN, Smoking, COPD, CAD, Cancer, CVA, ARF, Chemo, Hep., AIDS, mental health diagnosis, sleep apnea, morbid obesity)? @ -None Was patient admitted / discharged? Hospital course, mention meds given and route, prescriptions, significant lab abnormalities, going to OR and other pertinent info. @ -Based on patient's presentation physical exam, presents emergency department complaining of hypoglycemia. Did take a total of 40 tablets of dextromethorphan of unknown dosage over the last 24 hours. Patient was found to be hypoglycemic laying down resting next to his bike outside as it is a nice day. Vital signs are within acceptable limits. He is alert and oriented x 4 with no focal complaints. No focal deficits. No concern for suicidal or homicidal ideations, times, plans. States that his intended use was to get high. He is acting appropriately at this time and is cooperative. Patient will be given food, and we will obtain overdose labs. Poison control will be reached as well. Patient was in agreement this plan. Likely an observation period and discharged home as there is no concern for psychiatric evaluation at this time. He was in agreement this plan. He is given IV fluids. EKG shows no signs of acute ischemia. Laboratory studies are all within acceptable limits including multiple Accu-Cheks over the course of 4 hours all within acceptable limits. Spoke with poison control who requested at least a 4- hour observation period. Patient was in agreement this plan. After 4 hours, patient's Accu-Chek was 159. He would like to go home. I believe this is reasonable. He is acting appropriately. No deficits. Alert and oriented x 4. Strict return precautions discussed. I did advise him to stop abusing this medication however if he does choose to abuse it he needs to make sure he is eating and not to overdo it. He understands that it can cause hypoglycemia. Strict return precautions discussed. I instructed the patient to follow up with their PCP in the next 1-3 days. I explained that the patient should return to the emergency department if they experience any worsening symptoms. Strict return precautions were discussed with the patient. The patient expressed understanding of these instructions. I answered all questions that the patient had. The patient was discharged home in good condition with their prescriptions and follow up information. Undiagnosed new problem with uncertain prognosis? @ -No Drug Therapy requiring intensive monitoring for toxicity (Heparin, Nitro, Insulin, Cardizem)? @ -No Were any procedures done? @ -No Diagnosis/symptom? @ -dextromethorphan abuse, dextromethorphan adverse reaction causing hypoglycemia Acute, or Chronic, or Acute on Chronic? @ -Acute Uncomplicated (without systemic symptoms) or Complicated (systemic symptoms)? @ -Uncomplicated Side effects of treatment? @ -No Exacerbation, Progression, or Severe Exacerbation? @ -No Poses a threat to life or bodily function? How? (Chest pain, USA, CA, pneumonia, PE, COPD, DKA, ARF, appy, cholecystitis, CVA, Diverticulitis, Homicidal, Suicidal, threat to staff... and all critical care pts) @ -Unlikely at this time - Lab Data Result diagrams: 11/03/24 17:45 11/03/24 17:45 Lab Results 11/03/24 11/03/24 11/03/24 Range/Units 17:18 17:45 17:45 WBC 9.4 (3.8-10.6) k/uL RBC 4.99 (4.30-5.90) m/uL Hgb 14.7 (13.0-17.5) gm/dL Hct 44.7 (39.0-53.0) % MCV 89.6 (80.0-100.0) fL MCH 29.5 (25.0-35.0) pg MCHC 32.9 (31.0-37.0) g/dL RDW 12.5 (11.5-15.5) % Plt Count 235 (150-450) k/uL MPV 7.1 Neutrophils % 62 % Lymphocytes % 29 % Monocytes % 5 % Eosinophils % 2 % Basophils % 0 % Neutrophils # 5.8 (1.3-7.7) k/uL Lymphocytes # 2.8 (1.0-4.8) k/uL Monocytes # 0.5 (0-1.0) k/uL Eosinophils # 0.2 (0-0.7) k/uL Basophils # 0.0 (0-0.2) k/uL Sodium (137-145) mmol/L Potassium (3.5-5.1) mmol/L Chloride (98-107) mmol/L Carbon Dioxide (22-30) mmol/L Anion Gap mmol/L BUN (9-20) mg/dL Creatinine (0.66-1.25) mg/dL Est GFR (CKD-EPI)AfAm (>60 ml/min/1.73 sqM) Est GFR (CKD-EPI)NonAf (>60 ml/min/1.73 sqM) Glucose (74-99) mg/dL POC Glucose (mg/dL) 125 H (70-110) mg/dL POC Glu [employer] Director ID Domingo Playcie Calcium (8.4-10.2) mg/dL Total Bilirubin (0.2-1.3) mg/dL AST (17-59) U/L ALT (4-49) U/L Alkaline Phosphatase (38-126) U/L Creatine Kinase (55-170) U/L Total Protein (6.3-8.2) g/dL Albumin (3.5-5.0) g/dL Urine Color Colorless Urine Appearance Clear (Clear) Urine pH 6.0 (5.0-8.0) Ur Specific Bill[place] 1.005 (1.001-1.035) Urine Protein Negative (Negative) Urine Glucose (UA) Negative (Negative) Urine Ketones Negative (Negative) Urine Blood Negative (Negative) Urine Nitrite Negative (Negative) Urine Bilirubin Negative (Negative) Urine Urobilinogen <2.0 (<2.0) mg/dL Ur Leukocyte Esterase Negative (Negative) Salicylates mg/dL Urine Opiates Screen Not Detected (NotDetected) Ur Oxycodone Screen Not Detected (NotDetected) Urine Methadone Screen Not Detected (NotDetected) Acetaminophen ug/mL Ur Barbiturates Screen Not Detected (NotDetected) U Tricyclic Antidepress Not Detected (NotDetected) Ur Phencyclidine Scrn Not Detected (NotDetected) Ur Amphetamines Screen Not Detected (NotDetected) U Methamphetamines Scrn Not Detected (NotDetected) U Benzodiazepines Scrn Not Detected (NotDetected) Urine Cocaine Screen Not Detected (NotDetected) U Marijuana (THC) Screen Not Detected (NotDetected) Serum Alcohol mg/dL 11/03/24 11/03/24 11/03/24 Range/Units 17:45 18:28 19:10 WBC (3.8-10.6) k/uL RBC (4.30-5.90) m/uL Hgb (13.0-17.5) gm/dL Hct (39.0-53.0) % MCV (80.0-100.0) fL MCH (25.0-35.0) pg MCHC (31.0-37.0) g/dL RDW (11.5-15.5) % Plt Count (150-450) k/uL MPV Neutrophils % % Lymphocytes % % Monocytes % % Eosinophils % % Basophils % % Neutrophils # (1.3-7.7) k/uL Lymphocytes # (1.0-4.8) k/uL Monocytes # (0-1.0) k/uL Eosinophils # (0-0.7) k/uL Basophils # (0-0.2) k/uL Sodium 139 (137-145) mmol/L Potassium 3.6 (3.5-5.1) mmol/L Chloride 102 (98-107) mmol/L Carbon Dioxide 28 (22-30) mmol/L Anion Gap 9 mmol/L BUN 18 (9-20) mg/dL Creatinine 1.02 (0.66-1.25) mg/dL Est GFR (CKD-EPI)AfAm >90 (>60 ml/min/1.73 sqM) Est GFR (CKD-EPI)NonAf >90 (>60 ml/min/1.73 sqM) Glucose 119 H (74-99) mg/dL POC Glucose (mg/dL) 164 H 103 (70-110) mg/dL POC Glu [employer] Well[employer] Director ID Domingo Playcie Domingo Playcie Calcium 8.8 (8.4-10.2) mg/dL Total Bilirubin 0.4 (0.2-1.3) mg/dL AST 33 (17-59) U/L ALT 44 (4-49) U/L Alkaline Phosphatase 76 (38-126) U/L Creatine Kinase 101 (55-170) U/L Total Protein 6.7 (6.3-8.2) g/dL Albumin 4.3 (3.5-5.0) g/dL Urine Color Urine Appearance (Clear) Urine pH (5.0-8.0) Ur Specific Bill[place] (1.001-1.035) Urine Protein (Negative) Urine Glucose (UA) (Negative) Urine Ketones (Negative) Urine Blood (Negative) Urine Nitrite (Negative) Urine Bilirubin (Negative) Urine Urobilinogen (<2.0) mg/dL Ur Leukocyte Esterase (Negative) Salicylates <1.0 mg/dL Urine Opiates Screen (NotDetected) Ur Oxycodone Screen (NotDetected) Urine Methadone Screen (NotDetected) Acetaminophen <10.0 ug/mL Ur Barbiturates Screen (NotDetected) U Tricyclic Antidepress (NotDetected) Ur Phencyclidine Scrn (NotDetected) Ur Amphetamines Screen (NotDetected) U Methamphetamines Scrn (NotDetected) U Benzodiazepines Scrn (NotDetected) Urine Cocaine Screen (NotDetected) U Marijuana (THC) Screen (NotDetected) Serum Alcohol <10 mg/dL 11/03/24 11/03/24 Range/Units 19:53 21:12 WBC (3.8-10.6) k/uL RBC (4.30-5.90) m/uL Hgb (13.0-17.5) gm/dL Hct (39.0-53.0) % MCV (80.0-100.0) fL MCH (25.0-35.0) pg MCHC (31.0-37.0) g/dL RDW (11.5-15.5) % Plt Count (150-450) k/uL MPV Neutrophils % % Lymphocytes % % Monocytes % % Eosinophils % % Basophils % % Neutrophils # (1.3-7.7) k/uL Lymphocytes # (1.0-4.8) k/uL Monocytes # (0-1.0) k/uL Eosinophils # (0-0.7) k/uL Basophils # (0-0.2) k/uL Sodium (137-145) mmol/L Potassium (3.5-5.1) mmol/L Chloride (98-107) mmol/L Carbon Dioxide (22-30) mmol/L Anion Gap mmol/L BUN (9-20) mg/dL Creatinine (0.66-1.25) mg/dL Est GFR (CKD-EPI)AfAm (>60 ml/min/1.73 sqM) Est GFR (CKD-EPI)NonAf (>60 ml/min/1.73 sqM) Glucose (74-99) mg/dL POC Glucose (mg/dL) 110 159 H (70-110) mg/dL POC Glu [employer] And Wellness Director ID Tirado Lacey Eddie Larry Calcium (8.4-10.2) mg/dL Total Bilirubin (0.2-1.3) mg/dL AST (17-59) U/L ALT (4-49) U/L Alkaline Phosphatase (38-126) U/L Creatine Kinase (55-170) U/L Total Protein (6.3-8.2) g/dL Albumin (3.5-5.0) g/dL Urine Color Urine Appearance (Clear) Urine pH (5.0-8.0) Ur Specific Bill[place] (1.001-1.035) Urine Protein (Negative) Urine Glucose (UA) (Negative) Urine Ketones (Negative) Urine Blood (Negative) Urine Nitrite (Negative) Urine Bilirubin (Negative) Urine Urobilinogen (<2.0) mg/dL Ur Leukocyte Esterase (Negative) Salicylates mg/dL Urine Opiates Screen (NotDetected) Ur Oxycodone Screen (NotDetected) Urine Methadone Screen (NotDetected) Acetaminophen ug/mL Ur Barbiturates Screen (NotDetected) U Tricyclic Antidepress (NotDetected) Ur Phencyclidine Scrn (NotDetected) Ur Amphetamines Screen (NotDetected) U Methamphetamines Scrn (NotDetected) U Benzodiazepines Scrn (NotDetected) Urine Cocaine Screen (NotDetected) U Marijuana (THC) Screen (NotDetected) Serum Alcohol mg/dL - EKG Data -: EKG Interpreted by Me EKG Comments: 12-lead Electrocardiogram Interpretation Note EKG was reviewed and interpreted by myself. 12-lead ECG performed at 1729 is interpreted by me as revealing normal sinus rhythm at a rate of 95 beats per minute. Dalton is normal. HI interval is 152 ms, QRS durations 121 ms, QTc is 347 ms.. There were no ST or T wave abnormalities to suggest myocardial ischemia or injury. R wave progression across the precordium was satisfactory. By my interpretation this EKG is non-diagnostic for acute ischemia. Disposition Clinical Impression: Hypoglycemia, Dextromethorphan adverse reaction, Dextromethorphan use disorder, mild, abuse Disposition: HOME SELF-CARE Condition: Good Additional Instructions: Please avoid using as excess amounts of dextromethorphan moving forward. It can result in low blood sugars. If you do use it, make sure you eat and drink plenty. Please follow-up with your PCP in the next 1 to 3 days. Return if any worsening symptoms. Is patient prescribed a controlled substance at d/c from ED?: No Referrals: Annia Dong MD [Primary Care Provider] - 1-2 days Time of Disposition: 21:18
[2024-11-03 21:22] VITALS: BP 125/76; RESP 18
== END 2024-11-03 21:22 | disposition home or self-care (01) ==
LOC: EC 17:14
DX: E16.2 Hypoglycemia, unspecified (principal); T48.3X5A Adverse effect of antitussives, initial encounter; T74.31XA Adult psychological abuse, confirmed, initial encounter; F19.20 Other psychoactive substance dependence, uncomplicated; Z87.891 Personal history of nicotine dependence; Y93.55 Activity, bike riding
CPT/HCPCS: 36415; 93005; 80053; 82550; 85025; 81003; 80306; 80143; 80179; 99285; 96360; 96361; G0480; 80320

== ENCOUNTER → 2024-11-08 | Outpatient (CLI) | payer OTHER ==
--- NOTE | 2024-11-09 17:53 | CT ---
EXAMINATION TYPE: CT brain wo/w con DATE OF EXAM: 11/08/2024 8:34 AM COMPARISON: 12/08/2022 CLINICAL INDICATION: Male, 39 years old with history of R29.6 Recurrent falls; R26.89 Balance problem s, Recurrent Falls, balance problems TECHNIQUE: CT of the brain is performed utilizing 3 mm thick sections through the posterior fossa and 3 mm thick sections through the remaining calvarium. Study is performed within 24 hours of arrival to the hospital. Contrast used:100 ml mL of Isovue 300 without and with IV Contrast, (none if empty) CT DLP: 2161 mGycm, Automated exposure control for dose reduction was used. FINDINGS: No abnormal hyperdensity is present to suggest an acute intracranial hemorrhage. No mass lesion is evident. No acute infarcts are evident. Ventricles and sulci are appropriate for the patient age. No abnormal enhancement is evident. Paranasal sinuses and mastoid air cells within the [id number] are clear. IMPRESSION: 1. No acute intracranial process. Follow up MRI can be performed as clinically indicated. [facility], , 11/09/2024 5:51 PM
== END | disposition home or self-care (01) ==
LOC: RADCTMAIN 07:39
PROVIDERS: ATTEND Family Medicine
DX: R29.6 Repeated falls (principal); R26.89 Other abnormalities of gait and mobility
CPT/HCPCS: 70470; Q9967

== ENCOUNTER 2024-12-16 06:58 | Emergency (ER) | payer OTHER ==
[2024-12-16 07:30] LABS: Glucose,Whole Blood 167 mg/dL (70-110)
[2024-12-16] MEDS: SODIUM CHLORIDE 0.9% 500 ML 500 ML IV ONE (07:30)
[2024-12-16 07:32] LABS: Basophils # (A) 0.11 10*3/uL (0.00-0.10); Basophils % (A) 0.4 %; HCT 42.9 % (39.6-50.0); Lymphocytes # (A) 2.88 10*3/uL (0.90-5.00); Lymphocytes % (A) 10.1 %; MCV 88.6 fL (80.0-97.0); Mean Platelet Volume 9.8 fL (9.5-12.2); Monocytes # (A) 2.07 10*3/uL (0.20-1.00); Monocytes % (A) 7.2 %; Neutrophils # (A) 22.37 10*3/uL (1.80-7.70); Neutrophils % (A) 78.2 %; Platelet Count 250 10*3/uL (140-440); RBC 4.84 10*6/uL (4.40-5.60); RDW 11.4 % (11.5-14.5)
[2024-12-16 07:35] VITALS: RESP 24
[2024-12-16 07:44] LABS: ALT 45 U/L (4-49); AST 44 U/L (17-59); African American GFR (CKD) >90 (>60 ml/min/1.73 sqM); Albumin 4.9 g/dL (3.5-5.0); Alkaline Phosphatase 87 U/L (38-126); Anion Gap 25 mmol/L; Blood Urea Nitrogen 8 mg/dL (9-20); Calcium 8.9 mg/dL (8.4-10.2); Carbon Dioxide 12 mmol/L (22-30); Chloride 83 mmol/L (98-107); Glucose 140 mg/dL (74-99); Non-African American GFR(CKD) >90 (>60 ml/min/1.73 sqM); Sodium 120 mmol/L (137-145); Total Bilirubin 1.2 mg/dL (0.2-1.3); Total Protein 7.5 g/dL (6.3-8.2)
[2024-12-16 07:46] LABS: Amphetamine Screen,Urine Not Detected (NotDetected); Barbiturate Screen,Urine Not Detected (NotDetected); Benzodiazepines Screen,Urine Not Detected (NotDetected); Cocaine Screen,Urine Not Detected (NotDetected); Methadone Screen, Urine Not Detected (NotDetected); Opiate Screen,Urine Detected (NotDetected); Oxycodone Screen, Urine Not Detected (NotDetected); Phencyclidine Screen,Urine Detected (NotDetected); Tricyclic Antidepressant,Urine Not Detected (NotDetected); Urn Cannabinoid Scrn Not Detected (NotDetected)
--- NOTE | 2024-12-16 07:52 | ED ---
General Adult HPI - General Chief complaint: Altered Mental Status Stated complaint: altered mental status Time Seen by Provider: 12/16/24 07:05 Source: patient, EMS, RN notes reviewed, old records reviewed Mode of arrival: EMS Limitations: altered mental status - History of Present Illness Initial comments: This is a 39-year-old male who was [facility] a [facility] house. Patient has history of alcoholism and is supposed to have been clean of alcohol for 2 years. No one has any other history at this time. Patient has no family members or caregivers with him. This history all comes from EMS. When patient was being transferred from the EMS stretcher to our bed patient had a seizure. - Related Data Home Medications Medication Instructions Recorded Confirmed Unable To Assess [Unable to Assess] 12/16/24 12/16/24 Allergies Allergy/AdvReac Type Severity Reaction Status Date / Time No Known Allergies Allergy Verified 11/03/24 17:25 Review of Systems ROS Statement: Those systems with pertinent positive or pertinent negative responses have been documented in the HPI. ROS Other: All systems not noted in ROS Statement are negative. Past Medical History Past Medical History: No Reported History Additional Past Medical History / Comment(s): sober etoh 18 months 08/26 History of Any Multi-Drug Resistant Organisms: None Reported Past Surgical History: No Surgical Hx Reported Additional Past Surgical History / Comment(s): left ring finger and hand surgery from [facility] 2024 Past Anesthesia/Blood Transfusion Reactions: No Reported Reaction Past Psychological History: Depression Smoking Status: Former smoker Past Alcohol Use History: Rare Past Drug Use History: Prescription Drug Abuse - Past Family History Father Family Medical History: Liver Disease General Exam - General Exam Comments Initial Comments: GENERAL: Patient is well-developed and well-nourished. Patient is nontoxic and well- hydrated and is in no acute distress. ENT: Neck is soft and supple. No significant lymphadenopathy is noted. Oropharynx is clear. Moist mucous membranes. EYES: The sclera were anicteric and conjunctiva were pink and moist. Eyelids were unremarkable. Patient's eyes are spontaneously going from left to right and back with no nystagmus like activity PULMONARY: Unlabored respirations. Good breath sounds bilaterally. No audible rales rhonchi or wheezing was noted. CARDIOVASCULAR: There is a regular rate and rhythm without any murmurs gallops or rubs. ABDOMEN: Soft and nontender with normal bowel sounds. SKIN: Skin is clear with no lesions or rashes and otherwise unremarkable. NEUROLOGIC: Patient patient is unresponsive potentially postictal. MUSCULOSKELETAL: Normal extremities with adequate strength and full range of motion. LYMPHATICS: No significant lymphadenopathy is noted PSYCHIATRIC: Unable to assess Limitations: altered mental status Course Vital Signs 12/16/24 12/16/24 12/16/24 07:04 07:21 07:31 Temperature Pulse Rate 86 98 Respiratory 28 H 24 Rate Blood Pressure 173/101 141/68 O2 Sat by Pulse 98 97 98 Oximetry Fraction of Inspired Oxygen (FIO2) 12/16/24 12/16/24 12/16/24 07:55 08:26 10:12 Temperature 96.4 F L Pulse Rate 90 Respiratory 24 Rate Blood Pressure 129/75 O2 Sat by Pulse 93 L Oximetry Fraction of 100 Inspired Oxygen (FIO2) 12/16/24 12/16/24 10:14 10:19 Temperature Pulse Rate 90 Respiratory 24 Rate Blood Pressure 172/92 O2 Sat by Pulse 99 Oximetry Fraction of 100 Inspired Oxygen (FIO2) Procedures - Intubation Sedative: Etomidate Paralytic: other (100 of succinylcholine was used but first 10 of rocuronium was given as at the fasciculating dose) Laryngoscope: Rivas Size: 3 ET Tube Size: 7.5 Tube Secured Location: teeth Tube Placement Confirmation: visualized tube passing through cords, equal breath sounds bilaterally, no breath sounds over epigastrium, confirmation by capnometry Patient Tolerated Procedure: well Intubation Complications: other (Patient vomited on my first intubation attempt) Medical Decision Making - Medical Decision Making EKG is interpreted by myself EKG shows sinus rhythm at 93 bpm ID interval 183 QRS 114 QT interval 364 QTc is 415. Patient EKG shows no ST segment elevation or depression Was pt. sent in by a medical professional or institution (, PA, MARITIME GUARD, urgent care, hospital, or [facility]...) When possible be specific @ -No Did you speak to anyone other than the patient for history (EMS, parent, family, police, friend...)? What history was obtained from this source @ -No Did you review nursing and triage notes (agree or disagree)? Why? @ -I reviewed and agree with nursing and triage notes Were old charts reviewed (outside hosp., previous admission, EMS record, old EKG, old radiological studies, urgent care reports/EKG's, [facility] records)? Report findings @ -No old charts were reviewed Differential Diagnosis? @ -Differential Altered Mental Status: Hypoglycemia, DKA, hypercapnia, ETOH, overdose, CO poisoning, trauma, myxedema coma, HTN encephalopathy, infection, encephalitis, psychosis, intercranial hemorrhage, hepatic encephalopathy, meningitis, CVA, this is not meant to be an all-inclusive list EKG interpreted by me (3pts min.). @ -As above X-rays interpreted by me (1pt min.). @ -Chest x-ray shows ET tube in good place CT interpreted by me (1pt min.). @ -CT of the brain shows diffuse cerebral edema U/S interpreted by me (1pt. min.). @ -None done What testing was considered but not performed or refused? (CT, X-rays, U/S, labs)? Why? @ -None What meds were considered but not given or refused? Why? @ -None Did you discuss the management of the patient with other professionals (professionals i.e. , PA, MARITIME GUARD, lab, RT, psych nurse, social work program coordinator, fire pilot, teacher, network security officer, egg caser)? Give summary @ -We contacted [facility] and they accepted the patient transfer. Was smoking cessation discussed for >3mins.? @ -No Was critical care preformed (if so, how long)? @ -45 minutes Were there social determinants of health that impacted care today? How? (Homelessness, low income, unemployed, alcoholism, drug addiction, transportation, low edu. Level, literacy, decrease access to med. care, fdc, rehab)? @ -No Was there de-escalation of care discussed even if they declined (Discuss DNR or withdrawal of care, Hospice)? DNR status @ -No What co-morbidities impacted this encounter? (DM, HTN, Smoking, COPD, CAD, Cancer, CVA, ARF, Chemo, Hep., AIDS, mental health diagnosis, sleep apnea, morbid obesity)? @ -None Was patient admitted / discharged? Hospital course, mention meds given and route, prescriptions, significant lab abnormalities, going to OR and other pertinent info. @ -Patient remain and unresponsive to us but occasionally thrashing around in bed. CAT scan came back with diffuse cerebral edema. At that point in time I gave the patient Ativan to get the CAT scan done. I also gave the patient a 1500 of Keppra for seizure prophylaxis. Patient also received mannitol for the cerebral edema he was elevated to 30 degrees and we hyperventilated the patient after intubated. Patient also received 10 of Decadron. Patient was also placed on propofol. Father eventually spoke with the nurse and stated that last night when he talked to the son at about midnight on the phone he sounded very high Undiagnosed new problem with uncertain prognosis? @ -No Drug Therapy requiring intensive monitoring for toxicity (Heparin, Nitro, Insulin, Cardizem)? @ -No Were any procedures done? @ -No Diagnosis/symptom? @ -Cerebral edema Acute, or Chronic, or Acute on Chronic? @ -Acute Uncomplicated (without systemic symptoms) or Complicated (systemic symptoms)? @ -Complicated Side effects of treatment? @ -No Exacerbation, Progression, or Severe Exacerbation? @ -No Poses a threat to life or bodily function? How? (Chest pain, USA, NC, pneumonia, PE, COPD, DKA, ARF, appy, cholecystitis, CVA, Diverticulitis, Homicidal, Suicidal, threat to staff... and all critical care pts) @ -Yes this can lead to increased pressure and Diagnosis/symptom? @ -Hyponatremia Acute, or Chronic, or Acute on Chronic? @ -Acute Uncomplicated (without systemic symptoms) or Complicated (systemic symptoms)? @ -Complicated Side effects of treatment? @ -None Exacerbation, Progression, or Severe Exacerbation] @ -No Poses a threat to life or bodily function? @ -Yes this can lead to a coma Diagnosis/symptom? @ -Dextromethorphan overdose history Acute, or Chronic, or Acute on Chronic? @ -Acute Uncomplicated (without systemic symptoms) or Complicated (systemic symptoms)? @ -Complicated Side effects of treatment? @ -None Exacerbation, Progression, or Severe Exacerbation] @ -No Poses a threat to life or bodily function? @ -No - Lab Data Result diagrams: 12/16/24 07:28 12/16/24 07:28 Lab Results 12/16/24 12/16/24 12/16/24 Range/Units 07:28 07:28 07:28 WBC 28.60 H (4.50-10.00) 10*3/uL RBC 4.84 (4.40-5.60) 10*6/uL Hgb 15.0 (13.0-17.0) g/dL Hct 42.9 (39.6-50.0) % MCV 88.6 (80.0-97.0) fL MCH 31.0 (27.0-32.0) pg MCHC 35.0 (32.0-37.0) g/dL Plt Count 250 (140-440) 10*3/uL MPV 9.8 (9.5-12.2) fL Immature Gran % (Auto) 4.1 % Neutrophils % 78.2 % Lymphocytes % 10.1 % Monocytes % 7.2 % Eosinophils % 0.0 % Basophils % 0.4 % Immature Gran # 1.17 H (0.00-0.04) 10*3/uL Neutrophils # 22.37 H (1.80-7.70) 10*3/uL Lymphocytes # 2.88 (0.90-5.00) 10*3/uL Monocytes # 2.07 H (0.20-1.00) 10*3/uL Eosinophils # 0.00 L (0.04-0.35) 10*3/uL Basophils # 0.11 H (0.00-0.10) 10*3/uL PT 12.4 (10.0-12.5) sec INR 1.1 (<1.2) APTT 25.7 (22.0-30.0) sec VBG pH (7.31-7.41) VBG pCO2 (37-51) mmHg VBG HCO3 (24-28) mmol/L Sodium (137-145) mmol/L Potassium (3.5-5.1) mmol/L Chloride (98-107) mmol/L Carbon Dioxide (22-30) mmol/L Anion Gap mmol/L BUN (9-20) mg/dL Creatinine (0.66-1.25) mg/dL Est GFR (CKD-EPI)AfAm (>60 ml/min/1.73 sqM) Est GFR (CKD-EPI)NonAf (>60 ml/min/1.73 sqM) Glucose (74-99) mg/dL POC Glucose (mg/dL) (70-110) mg/dL POC Glu Window Machine Operator ID Plasma Lactic Acid Felix (0.7-2.0) mmol/L Calcium (8.4-10.2) mg/dL Total Bilirubin (0.2-1.3) mg/dL AST (17-59) U/L ALT (4-49) U/L Alkaline Phosphatase (38-126) U/L Troponin I (0.000-0.034) ng/mL Total Protein (6.3-8.2) g/dL Albumin (3.5-5.0) g/dL Urine Color Urine Appearance (Clear) Urine pH (5.0-8.0) Ur Specific Acosta (1.001-1.035) Urine Protein (Negative) Urine Glucose (UA) (Negative) Urine Ketones (Negative) Urine Blood (Negative) Urine Nitrite (Negative) Urine Bilirubin (Negative) Urine Urobilinogen (<2.0) mg/dL Ur Leukocyte Esterase (Negative) Salicylates mg/dL Urine Opiates Screen Detected H (NotDetected) Ur Oxycodone Screen Not Detected (NotDetected) Urine Methadone Screen Not Detected (NotDetected) Acetaminophen ug/mL Ur Barbiturates Screen Not Detected (NotDetected) U Tricyclic Antidepress Not Detected (NotDetected) Ur Phencyclidine Scrn Detected H (NotDetected) Ur Amphetamines Screen Not Detected (NotDetected) U Methamphetamines Scrn Not Detected (NotDetected) U Benzodiazepines Scrn Not Detected (NotDetected) Urine Cocaine Screen Not Detected (NotDetected) U Marijuana (THC) Screen Not Detected (NotDetected) 12/16/24 12/16/24 12/16/24 Range/Units 07:28 07:28 07:28 WBC (4.50-10.00) 10*3/uL RBC (4.40-5.60) 10*6/uL Hgb (13.0-17.0) g/dL Hct (39.6-50.0) % MCV (80.0-97.0) fL MCH (27.0-32.0) pg MCHC (32.0-37.0) g/dL Plt Count (140-440) 10*3/uL MPV (9.5-12.2) fL Immature Gran % (Auto) % Neutrophils % % Lymphocytes % % Monocytes % % Eosinophils % % Basophils % % Immature Gran # (0.00-0.04) 10*3/uL Neutrophils # (1.80-7.70) 10*3/uL Lymphocytes # (0.90-5.00) 10*3/uL Monocytes # (0.20-1.00) 10*3/uL Eosinophils # (0.04-0.35) 10*3/uL Basophils # (0.00-0.10) 10*3/uL PT (10.0-12.5) sec INR (<1.2) APTT (22.0-30.0) sec VBG pH (7.31-7.41) VBG pCO2 (37-51) mmHg VBG HCO3 (24-28) mmol/L Sodium 120 L (137-145) mmol/L Potassium 4.0 (3.5-5.1) mmol/L Chloride 83 L (98-107) mmol/L Carbon Dioxide 12 L (22-30) mmol/L Anion Gap 25 mmol/L BUN 8 L (9-20) mg/dL Creatinine 0.87 (0.66-1.25) mg/dL Est GFR (CKD-EPI)AfAm >90 (>60 ml/min/1.73 sqM) Est GFR (CKD-EPI)NonAf >90 (>60 ml/min/1.73 sqM) Glucose 140 H (74-99) mg/dL POC Glucose (mg/dL) (70-110) mg/dL POC Glu Window Machine Operator ID Plasma Lactic Acid Felix (0.7-2.0) mmol/L Calcium 8.9 (8.4-10.2) mg/dL Total Bilirubin 1.2 (0.2-1.3) mg/dL AST 44 (17-59) U/L ALT 45 (4-49) U/L Alkaline Phosphatase 87 (38-126) U/L Troponin I 0.030 (0.000-0.034) ng/mL Total Protein 7.5 (6.3-8.2) g/dL Albumin 4.9 (3.5-5.0) g/dL Urine Color Colorless Urine Appearance Clear (Clear) Urine pH 5.5 (5.0-8.0) Ur Specific Acosta 1.015 (1.001-1.035) Urine Protein Negative (Negative) Urine Glucose (UA) 1+ H (Negative) Urine Ketones Trace H (Negative) Urine Blood Negative (Negative) Urine Nitrite Negative (Negative) Urine Bilirubin Negative (Negative) Urine Urobilinogen <2.0 (<2.0) mg/dL Ur Leukocyte Esterase Negative (Negative) Salicylates mg/dL Urine Opiates Screen (NotDetected) Ur Oxycodone Screen (NotDetected) Urine Methadone Screen (NotDetected) Acetaminophen ug/mL Ur Barbiturates Screen (NotDetected) U Tricyclic Antidepress (NotDetected) Ur Phencyclidine Scrn (NotDetected) Ur Amphetamines Screen (NotDetected) U Methamphetamines Scrn (NotDetected) U Benzodiazepines Scrn (NotDetected) Urine Cocaine Screen (NotDetected) U Marijuana (THC) Screen (NotDetected) 12/16/24 12/16/24 12/16/24 Range/Units 07:29 08:33 08:33 WBC (4.50-10.00) 10*3/uL RBC (4.40-5.60) 10*6/uL Hgb (13.0-17.0) g/dL Hct (39.6-50.0) % MCV (80.0-97.0) fL MCH (27.0-32.0) pg MCHC (32.0-37.0) g/dL Plt Count (140-440) 10*3/uL MPV (9.5-12.2) fL Immature Gran % (Auto) % Neutrophils % % Lymphocytes % % Monocytes % % Eosinophils % % Basophils % % Immature Gran # (0.00-0.04) 10*3/uL Neutrophils # (1.80-7.70) 10*3/uL Lymphocytes # (0.90-5.00) 10*3/uL Monocytes # (0.20-1.00) 10*3/uL Eosinophils # (0.04-0.35) 10*3/uL Basophils # (0.00-0.10) 10*3/uL PT (10.0-12.5) sec INR (<1.2) APTT (22.0-30.0) sec VBG pH 7.35 (7.31-7.41) VBG pCO2 35 L (37-51) mmHg VBG HCO3 19 L (24-28) mmol/L Sodium (137-145) mmol/L Potassium (3.5-5.1) mmol/L Chloride (98-107) mmol/L Carbon Dioxide (22-30) mmol/L Anion Gap mmol/L BUN (9-20) mg/dL Creatinine (0.66-1.25) mg/dL Est GFR (CKD-EPI)AfAm (>60 ml/min/1.73 sqM) Est GFR (CKD-EPI)NonAf (>60 ml/min/1.73 sqM) Glucose (74-99) mg/dL POC Glucose (mg/dL) 167 H (70-110) mg/dL POC Glu Window Machine Operator ID Joleen Mccarty Plasma Lactic Acid Felix 4.9 H* (0.7-2.0) mmol/L Calcium (8.4-10.2) mg/dL Total Bilirubin (0.2-1.3) mg/dL AST (17-59) U/L ALT (4-49) U/L Alkaline Phosphatase (38-126) U/L Troponin I (0.000-0.034) ng/mL Total Protein (6.3-8.2) g/dL Albumin (3.5-5.0) g/dL Urine Color Urine Appearance (Clear) Urine pH (5.0-8.0) Ur Specific Acosta (1.001-1.035) Urine Protein (Negative) Urine Glucose (UA) (Negative) Urine Ketones (Negative) Urine Blood (Negative) Urine Nitrite (Negative) Urine Bilirubin (Negative) Urine Urobilinogen (<2.0) mg/dL Ur Leukocyte Esterase (Negative) Salicylates mg/dL Urine Opiates Screen (NotDetected) Ur Oxycodone Screen (NotDetected) Urine Methadone Screen (NotDetected) Acetaminophen ug/mL Ur Barbiturates Screen (NotDetected) U Tricyclic Antidepress (NotDetected) Ur Phencyclidine Scrn (NotDetected) Ur Amphetamines Screen (NotDetected) U Methamphetamines Scrn (NotDetected) U Benzodiazepines Scrn (NotDetected) Urine Cocaine Screen (NotDetected) U Marijuana (THC) Screen (NotDetected) 12/16/24 Range/Units 09:19 WBC (4.50-10.00) 10*3/uL RBC (4.40-5.60) 10*6/uL Hgb (13.0-17.0) g/dL Hct (39.6-50.0) % MCV (80.0-97.0) fL MCH (27.0-32.0) pg MCHC (32.0-37.0) g/dL Plt Count (140-440) 10*3/uL MPV (9.5-12.2) fL Immature Gran % (Auto) % Neutrophils % % Lymphocytes % % Monocytes % % Eosinophils % % Basophils % % Immature Gran # (0.00-0.04) 10*3/uL Neutrophils # (1.80-7.70) 10*3/uL Lymphocytes # (0.90-5.00) 10*3/uL Monocytes # (0.20-1.00) 10*3/uL Eosinophils # (0.04-0.35) 10*3/uL Basophils # (0.00-0.10) 10*3/uL PT (10.0-12.5) sec INR (<1.2) APTT (22.0-30.0) sec VBG pH (7.31-7.41) VBG pCO2 (37-51) mmHg VBG HCO3 (24-28) mmol/L Sodium (137-145) mmol/L Potassium (3.5-5.1) mmol/L Chloride (98-107) mmol/L Carbon Dioxide (22-30) mmol/L Anion Gap mmol/L BUN (9-20) mg/dL Creatinine (0.66-1.25) mg/dL Est GFR (CKD-EPI)AfAm (>60 ml/min/1.73 sqM) Est GFR (CKD-EPI)NonAf (>60 ml/min/1.73 sqM) Glucose (74-99) mg/dL POC Glucose (mg/dL) (70-110) mg/dL POC Glu Window Machine Operator ID Plasma Lactic Acid Felix (0.7-2.0) mmol/L Calcium (8.4-10.2) mg/dL Total Bilirubin (0.2-1.3) mg/dL AST (17-59) U/L ALT (4-49) U/L Alkaline Phosphatase (38-126) U/L Troponin I (0.000-0.034) ng/mL Total Protein (6.3-8.2) g/dL Albumin (3.5-5.0) g/dL Urine Color Urine Appearance (Clear) Urine pH (5.0-8.0) Ur Specific Acosta (1.001-1.035) Urine Protein (Negative) Urine Glucose (UA) (Negative) Urine Ketones (Negative) Urine Blood (Negative) Urine Nitrite (Negative) Urine Bilirubin (Negative) Urine Urobilinogen (<2.0) mg/dL Ur Leukocyte Esterase (Negative) Salicylates <1.0 mg/dL Urine Opiates Screen (NotDetected) Ur Oxycodone Screen (NotDetected) Urine Methadone Screen (NotDetected) Acetaminophen <10.0 ug/mL Ur Barbiturates Screen (NotDetected) U Tricyclic Antidepress (NotDetected) Ur Phencyclidine Scrn (NotDetected) Ur Amphetamines Screen (NotDetected) U Methamphetamines Scrn (NotDetected) U Benzodiazepines Scrn (NotDetected) Urine Cocaine Screen (NotDetected) U Marijuana (THC) Screen (NotDetected) Disposition Clinical Impression: Cerebral edema, Hyponatremia, Dextromethorphan overdose Disposition: OTHER INSTITUTION NOT DEFINED Referrals: None,Stated [Primary Care Provider] - 1-2 days - Out of Hospital Transfer - Req. Specs Out of Hospital Transfer - Requested Specifics: Other Emergency Center ([facility])
[2024-12-16 07:56] VITALS: TEMP 96.4
[2024-12-16 07:58] LABS: INR 1.1 (<1.2); Partial Thromboplastin Time 25.7 sec (22.0-30.0); Prothrombin Time 12.4 sec (10.0-12.5)
[2024-12-16] MEDS: LORazepam 1 MG/0.5 ML VIAL IV STA (08:11)
[2024-12-16 08:37] LABS: Appearance,Urine Clear (Clear); Bilirubin,Urine Negative (Negative); Blood,Urine Negative (Negative); Color,Urine Colorless; Glucose,Urine (UA) 1+ (Negative); Ketones,Urine Trace (Negative); Leukocyte Esterase,Urine Negative (Negative); Nitrite,Urine Negative (Negative); PH, Urine 5.5 (5.0-8.0); Protein,Urine Negative (Negative); Specific Gravity,Urine 1.015 (1.001-1.035); Urobilinogen,Urine <2.0 mg/dL (<2.0)
[2024-12-16 08:40] LABS: VBG PH 7.35 (7.31-7.41)
--- NOTE | 2024-12-16 08:55 | XR ---
EXAMINATION TYPE: XR chest 1V DATE OF EXAM: 12/16/2024 8:25 AM COMPARISON: Chest radiographs from 12/08/2022. CLINICAL INDICATION: Male, 39 years old with history of altered mental status; [facility] TECHNIQUE: XR chest 1V Frontal view of the chest. FINDINGS: Lungs/Pleura: Low lung volumes are present. There is no evidence of pleural effusion, focal consolida tion, or pneumothorax. Pulmonary vascularity: Unremarkable. Heart/mediastinum: Cardiomediastinal silhouette is unremarkable. Musculoskeletal: No acute osseous pathology. IMPRESSION: Low lung volumes with a generalized hazy appearance which could represent atelectasis versus pulmonar y edema correlate with serum BNP. [facility], , 12/16/2024 8:53 AM
--- NOTE | 2024-12-16 09:06 | CT ---
EXAMINATION TYPE: CT brain wo con DATE OF EXAM: 12/16/2024 8:25 AM COMPARISON: 11/08/2024 CLINICAL INDICATION: Male, 39 years old with history of Altered mental status, altered mental status, seizure TECHNIQUE: Brain: Axial CT images of the brain were obtained with coronal and sagittal reformats created and rev iewed. Contrast used: None. Oral contrast used: None. CT DLP: 1039.4 mGycm, Automated exposure control for dose reduction was used. FINDINGS: Brain: Extra-axial spaces: No abnormal extra-axial fluid collections. Ventricular system: Within normal limits Cerebral parenchyma: There is diffuse lower attenuation of the brain parenchyma with loss of sulci bi laterally. Basal cisterns are relatively clear at this time no midline shift identified. No acute int raparenchymal hemorrhage or mass effect. The bagley-white junction is well differentiated. Cerebellum: Unremarkable. Mass effect: No evidence of midline shift. Intracranial vasculature: unremarkable Soft tissues: Normal. Calvarium/osseous structures: No depressed skull fracture. Paranasal sinuses and mastoid air cells: Mild scattered paranasal sinus disease. Visualized orbits: Orbital contents are intact. IMPRESSION: Diffuse cerebral edema compared to prior 11/08/2024. No evidence for midline shift or uncal herniation at this time. Findings communicated to José Miguel Garza MD on 12/16/2024 9:[address] Vickey Pleitez. [facility], , 12/16/2024 9:03 AM
[2024-12-16] MEDS: cefTRIAXone IN SWFI 1,000 MG/10 ML SYRINGE IVP STA ×2 (09:28→09:30)
[2024-12-16] MEDS: levETIRAcetam IV 500 MG/5 ML VIAL IVP STA (09:33)
[2024-12-16] MEDS ORDERED: LIDOCAINE 2% INJ 20 MG/ML (20 ML MDV) IV ONE (09:35)
[2024-12-16 09:38] LABS: Acetaminophen <10.0 ug/mL; Salicylate <1.0 mg/dL
[2024-12-16] MEDS: SALINE IV ONE (09:41)
[2024-12-16] MEDS: MANNITOL 20% IV ONE (09:41)
[2024-12-16] MEDS ORDERED: LIDOCAINE 2% SYG (PF) 100 MG/5 ML IV ONE (09:45)
[2024-12-16] MEDS: LIDOCAINE 2% SYG (PF) 100 MG/5 ML IV ONE (09:51)
[2024-12-16] MEDS: ETOMIDATE 2 MG/ML 10 ML VIAL IVP STA (10:15)
[2024-12-16] MEDS: SUCCINYLCHOLINE CHLORIDE 200 MG/10 ML VIAL IV STA (10:15)
[2024-12-16] MEDS: ROCURONIUM 10 MG/ML (5 ML VIAL) IV STA (10:16)
[2024-12-16] MEDS: DEXAMETHASONE SOD PHOSPHATE 10 MG/ML 1 ML VIAL IVP STA (10:39)
[2024-12-16 10:43] VITALS: BP 145/85; PULSE 85
--- NOTE | 2024-12-16 10:47 | XR ---
EXAMINATION TYPE: XR chest 1V portable DATE OF EXAM: 12/16/2024 10:29 AM COMPARISON: Chest radiographs from 12/16/2024. CLINICAL INDICATION: Male, 39 years old with history of intubation; [facility] TECHNIQUE: XR chest 1V portable Frontal view of the chest. FINDINGS: Lungs/Pleura: There is no evidence of pleural effusion, focal consolidation, or pneumothorax. Pulmonary vascularity: Unremarkable. Heart/mediastinum: Cardiomediastinal silhouette is unremarkable. Musculoskeletal: No acute osseous pathology. Other findings: None Lines/Tubes: Endotracheal tube with distal tip 4.6 cm above the bianca. Nasogastric tube with its distal tip and side-port projecting under the diaphragm. IMPRESSION: Stable exam. Appropriate placement of support tubes. [facility], , 12/16/2024 10:45 AM
== END 2024-12-16 10:44 | disposition other institution (70) ==
LOC: EC 06:58
DX: G93.6 Cerebral edema (principal); E87.1 Hypo-osmolality and hyponatremia; T48.3X1A Poisoning by antitussives, accidental (unintentional), initial encounter; Z87.891 Personal history of nicotine dependence
CPT/HCPCS: 36415; 94002; 93005; 83930; 80053; 82533; 82803; 83605; 84484; 85025; 85610; 85730; 81003; 83935; 87040; 80306; 80143; 80179; 71045; 70450; 99291; 96365; 96375; 31500; J0330; J2060; J1100; J2003; J0696; J1953

== ENCOUNTER 2024-12-29 09:47 | Emergency (ER) | payer OTHER ==
[2024-12-29 10:05] VITALS: TEMP 97.5
--- NOTE | 2024-12-29 12:47 | ED ---
Psych HPI - General Chief Complaint: Psychiatric Symptoms Stated Complaint: SI Time Seen by Provider: 12/29/24 10:05 Source: patient Mode of arrival: ambulatory - History of Present Illness Initial Comments: 39-year-old male presents to the emergency department reporting suicidal thoughts and depression for the past 2 days. Denies a plan. He admits to being homeless and was kicked out of [facility] after he relapsed. Patient reports alcohol use. No suicide attempt at this time. - Related Data Previous Rx's Medication Instructions Recorded Folic Acid 1 mg PO DAILY 30 Days #30 tab 01/06/25 Multivitamins, Thera [Multivitamin 1 each PO DAILY 30 Days #30 tab 01/06/25 (formulary)] Sertraline [Zoloft] 50 mg PO HS 30 Days #30 tab 01/06/25 Thiamine [Vitamin B-1] 100 mg PO DAILY 30 Days #30 tab 01/06/25 traZODone HCL [Desyrel] 100 mg PO HS 30 Days #30 tab 01/06/25 Allergies Allergy/AdvReac Type Severity Reaction Status Date / Time No Known Allergies Allergy Verified 01/02/25 16:10 Review of Systems ROS Statement: Those systems with pertinent positive or pertinent negative responses have been documented in the HPI. ROS Other: All systems not noted in ROS Statement are negative. Past Medical History Past Medical History: No Reported History Additional Past Medical History / Comment(s): sober etoh 18 months 08/26 History of Any Multi-Drug Resistant Organisms: None Reported Past Surgical History: No Surgical Hx Reported Additional Past Surgical History / Comment(s): left ring finger and hand surgery from a break 2024 Past Anesthesia/Blood Transfusion Reactions: No Reported Reaction Past Psychological History: Depression Smoking Status: Former smoker Past Alcohol Use History: Occasional Past Drug Use History: Prescription Drug Abuse - Past Family History Father Family Medical History: Liver Disease General Exam Limitations: no limitations General appearance: alert, in no apparent distress Head exam: Present: atraumatic, normocephalic, normal inspection Eye exam: Present: normal appearance, PERRL, EOMI. Absent: scleral icterus, conjunctival injection, periorbital swelling ENT exam: Present: normal exam, mucous membranes moist Neck exam: Present: normal inspection. Absent: tenderness, meningismus, lymphadenopathy Respiratory exam: Present: normal lung sounds bilaterally. Absent: respiratory distress, wheezes, rales, rhonchi, stridor Cardiovascular Exam: Present: regular rate, normal rhythm, normal heart sounds. Absent: systolic murmur, diastolic murmur, rubs, gallop, clicks GI/Abdominal exam: Present: soft, normal bowel sounds. Absent: distended, tenderness, guarding, rebound, rigid Extremities exam: Present: normal inspection, full ROM, normal capillary refill. Absent: tenderness, pedal edema, joint swelling, calf tenderness Back exam: Present: normal inspection Neurological exam: Present: alert, oriented X3, CN II-XII intact Psychiatric exam: Present: depressed Skin exam: Present: warm, dry, intact, normal color. Absent: rash Course Vital Signs 12/29/24 12/29/24 12/29/24 10:02 12:00 13:20 Temperature 97.5 F L Pulse Rate 108 H Respiratory 18 15 17 Rate Blood Pressure 116/81 O2 Sat by Pulse 100 Oximetry 12/29/24 12/29/24 14:19 14:49 Temperature Pulse Rate 95 Respiratory 16 18 Rate Blood Pressure 105/65 O2 Sat by Pulse 97 Oximetry Medical Decision Making - Medical Decision Making Was pt. sent in by a medical professional or institution (, PA, CRYSTAL GROWING TECHNICIAN, urgent care, hospital, or custodial...) When possible be specific @ -No Did you speak to anyone other than the patient for history (EMS, parent, family, police, friend...)? What history was obtained from this source @ -No Did you review nursing and triage notes (agree or disagree)? Why? @ -I reviewed and agree with nursing and triage notes Were old charts reviewed (outside hosp., previous admission, EMS record, old EKG, old radiological studies, urgent care reports/EKG's, custodial records)? Report findings @ -No old charts were reviewed Differential Diagnosis (chest pain, altered mental status, abdominal pain women, abdominal pain men, vaginal bleeding, weakness, fever, dyspnea, syncope, headache, dizziness, GI bleed, back pain, seizure, CVA, palpatations, mental health, musculoskeletal)? @ -Differential Mental Health Depression, anxiety, bipolar, psychosis, schizophrenia, borderline personality, situational depression, adjustment disorder, behavioral disorder, brain tumor, malingering, substance abuse, encephalopathy, medication reaction, dementia, hypothyroidism, degenerative neurologic disorder, lupus.... This is not meant to be all-inclusive list EKG interpreted by me (3pts min.). @ -Not done X-rays interpreted by me (1pt min.). @ -None done CT interpreted by me (1pt min.). @ -None done U/S interpreted by me (1pt. min.). @ -None done What testing was considered but not performed or refused? (CT, X-rays, U/S, labs)? Why? @ -None What meds were considered but not given or refused? Why? @ -None Did you discuss the management of the patient with other professionals (professionals i.e. DrAhmet, PA, CRYSTAL GROWING TECHNICIAN, lab, RT, psych nurse, social work nurse, rug dry room attendant, teacher, loan workout officer, ed case manager)? Give summary @ -Spoke with EPS who does evaluate the patient Was smoking cessation discussed for >3mins.? @ -No Was critical care preformed (if so, how long)? @ -No Were there social determinants of health that impacted care today? How? (Homelessness, low income, unemployed, alcoholism, drug addiction, transportation, low edu. Level, literacy, decrease access to med. care, [facility], rehab)? @ -Patient is homeless and has substance abuse Was there de-escalation of care discussed even if they declined (Discuss DNR or withdrawal of care, Hospice)? DNR status @ -No What co-morbidities impacted this encounter? (DM, HTN, Smoking, COPD, CAD, Cancer, CVA, ARF, Chemo, Hep., AIDS, mental health diagnosis, sleep apnea, morbid obesity)? @ -Depression, substance abuse Was patient admitted / discharged? Hospital course, mention meds given and route, prescriptions, significant lab abnormalities, going to OR and other pertinent info. @ -Upon arrival patient seen and evaluated in room 12. Patient is not intoxicated. Patient is medically clear for evaluation by EPS. EPS does evaluate the patient. Does fill out a safety plan. Does feel the patient is stable for discharge home. He is given recommendations for fci. Patient discharged in stable condition Undiagnosed new problem with uncertain prognosis? @ -No Drug Therapy requiring intensive monitoring for toxicity (Heparin, Nitro, Insulin, Cardizem)? @ -No Were any procedures done? @ -No Diagnosis/symptom? @ -Acute depression Acute, or Chronic, or Acute on Chronic? @ -Acute on chronic Uncomplicated (without systemic symptoms) or Complicated (systemic symptoms)? @ -Complicated Side effects of treatment? @ -No Exacerbation, Progression, or Severe Exacerbation? @ -No Poses a threat to life or bodily function? How? (Chest pain, [place], [place], pneumonia, PE, COPD, DKA, ARF, appy, cholecystitis, CVA, Diverticulitis, Homicidal, Suicidal, threat to staff... and all critical care pts) @ -No - Lab Data Lab Results 12/29/24 12/29/24 Range/Units 13:32 13:32 Urine Color Light Yellow Urine Appearance Clear (Clear) Urine pH 6.0 (5.0-8.0) Ur Specific [place] 1.020 (1.001-1.035) Urine Protein Negative (Negative) Urine Glucose (UA) Negative (Negative) Urine Ketones Negative (Negative) Urine Blood Negative (Negative) Urine Nitrite Negative (Negative) Urine Bilirubin Negative (Negative) Urine Urobilinogen <2.0 (<2.0) mg/dL Ur Leukocyte Esterase Negative (Negative) Urine Opiates Screen Not Detected (NotDetected) Ur Oxycodone Screen Not Detected (NotDetected) Urine Methadone Screen Not Detected (NotDetected) Ur Barbiturates Screen Not Detected (NotDetected) U Tricyclic Antidepress Not Detected (NotDetected) Ur Phencyclidine Scrn Not Detected (NotDetected) Ur Amphetamines Screen Not Detected (NotDetected) U Methamphetamines Scrn Not Detected (NotDetected) U Benzodiazepines Scrn Not Detected (NotDetected) Urine Cocaine Screen Not Detected (NotDetected) U Marijuana (THC) Screen Not Detected (NotDetected) Disposition Clinical Impression: Depression Disposition: HOME SELF-CARE Condition: Stable Instructions (If sedation given, give patient instructions): Depression (ED) Is patient prescribed a controlled substance at d/c from ED?: No Referrals: Annia Dong MD [Primary Care Provider] - 1-2 days Time of Disposition: 14:32
[2024-12-29 14:06] LABS: Amphetamine Screen,Urine Not Detected (NotDetected); Barbiturate Screen,Urine Not Detected (NotDetected); Benzodiazepines Screen,Urine Not Detected (NotDetected); Cocaine Screen,Urine Not Detected (NotDetected); Methadone Screen, Urine Not Detected (NotDetected); Opiate Screen,Urine Not Detected (NotDetected); Oxycodone Screen, Urine Not Detected (NotDetected); Phencyclidine Screen,Urine Not Detected (NotDetected); Tricyclic Antidepressant,Urine Not Detected (NotDetected); Urn Cannabinoid Scrn Not Detected (NotDetected)
[2024-12-29 14:07] LABS: Appearance,Urine Clear (Clear); Bilirubin,Urine Negative (Negative); Blood,Urine Negative (Negative); Color,Urine Light Yellow; Glucose,Urine (UA) Negative (Negative); Ketones,Urine Negative (Negative); Leukocyte Esterase,Urine Negative (Negative); Nitrite,Urine Negative (Negative); Protein,Urine Negative (Negative); Urobilinogen,Urine <2.0 mg/dL (<2.0)
[2024-12-29 14:51] VITALS: BP 105/65; PULSE 95; RESP 18
== END 2024-12-29 14:51 | disposition home or self-care (01) ==
LOC: EC 09:47
DX: F32.A Depression, unspecified (principal); F19.10 Other psychoactive substance abuse, uncomplicated; Z87.891 Personal history of nicotine dependence
CPT/HCPCS: 80306; 81003; 82075; 99285

== ENCOUNTER 2025-01-01 20:20 | Inpatient (IN) | payer MEDICAID, OTHER ==
--- NOTE | 2025-01-01 21:55 | ED ---
Psych HPI - General Chief Complaint: Psychiatric Symptoms Stated Complaint: Suicidal thoughs/Alcohol withdrawal Time Seen by Provider: 01/01/25 20:48 Source: patient, RN notes reviewed, old records reviewed Mode of arrival: ambulatory Limitations: no limitations - History of Present Illness Initial Comments: This is a 39-year-old male to the ER for evaluation patient comes in with acute alcohol intoxication. Patient has suicidal ideation depression attempted to check in with [facility] was unable MD Complaint: suicidal ideation, feels depressed, other (Alcohol intoxication) -: days(s) Associated Psychiatric Symptoms: depression, suicidal ideation History of same: Yes Quality: constant Improves With: none Context: recent alcohol abuse Associated Symptoms: denies other symptoms Treatments Prior to Arrival: placed on mental health hold If Self Harm: admits thoughts of self harm - Related Data Home Medications Medication Instructions Recorded Confirmed Unable To Assess [Unable to Assess] 12/16/24 12/16/24 Allergies Allergy/AdvReac Type Severity Reaction Status Date / Time No Known Allergies Allergy Verified 01/01/25 20:42 Review of Systems ROS Statement: Those systems with pertinent positive or pertinent negative responses have been documented in the HPI. ROS Other: All systems not noted in ROS Statement are negative. Past Medical History Past Medical History: No Reported History Additional Past Medical History / Comment(s): sober etoh 18 months 08/26- started drinking again 12/25 History of Any Multi-Drug Resistant Organisms: None Reported Past Surgical History: No Surgical Hx Reported Additional Past Surgical History / Comment(s): left ring finger and hand surgery from a break 2024 Past Anesthesia/Blood Transfusion Reactions: No Reported Reaction Past Psychological History: Depression Smoking Status: Former smoker Past Alcohol Use History: Daily, Heavy Past Drug Use History: Prescription Drug Abuse - Past Family History Father Family Medical History: Liver Disease General Exam Limitations: no limitations General appearance: alert, in no apparent distress Head exam: Present: atraumatic, normocephalic, normal inspection Eye exam: Present: normal appearance, PERRL, EOMI. Absent: scleral icterus, conjunctival injection, periorbital swelling ENT exam: Present: normal exam, mucous membranes moist Neck exam: Present: normal inspection. Absent: tenderness, meningismus, lymphadenopathy Respiratory exam: Present: normal lung sounds bilaterally. Absent: respiratory distress, wheezes, rales, rhonchi, stridor Cardiovascular Exam: Present: regular rate, normal rhythm, normal heart sounds. Absent: systolic murmur, diastolic murmur, rubs, gallop, clicks GI/Abdominal exam: Present: soft, normal bowel sounds. Absent: distended, tenderness, guarding, rebound, rigid Extremities exam: Present: normal inspection, full ROM, normal capillary refill. Absent: tenderness, pedal edema, joint swelling, calf tenderness Back exam: Present: normal inspection Neurological exam: Present: alert, oriented X3, CN II-XII intact Psychiatric exam: Present: normal affect, normal mood Skin exam: Present: warm, dry, intact, normal color. Absent: rash Course Vital Signs 01/01/25 20:42 Temperature 97.8 F Pulse Rate 91 Respiratory 16 Rate Blood Pressure 132/85 O2 Sat by Pulse 98 Oximetry - Reevaluation(s) Reevaluation #1: 01/01/25 22:31 Medical records reviewed Reevaluation #3: Differential Mental Health Depression, anxiety, bipolar, psychosis, schizophrenia, borderline personality, situational depression, adjustment disorder, behavioral disorder, brain tumor, malingering, substance abuse, encephalopathy, medication reaction, dementia, hypothyroidism, degenerative neurologic disorder, lupus.... This is not meant to be all-inclusive list Disposition Referrals: Annia Dong MD [Primary Care Provider] - 1-2 days
[2025-01-02] MEDS: LORazepam 1 MG TAB PO STA (10:33)
[2025-01-02] MEDS ORDERED: LORazepam 1 MG TAB PO PRN (18:40)
[2025-01-02] MEDS ORDERED: HALOPERIDOL LACTATE 5 MG/ML 1 ML VIAL IM PRN (18:40)
[2025-01-02] MEDS ORDERED: LORazepam 1 MG/0.5 ML VIAL IM PRN (18:40)
[2025-01-02] MEDS ORDERED: haloperidoL 5 MG TAB PO PRN (18:40)
[2025-01-02] MEDS ORDERED: ACETAMINOPHEN TAB 325 MG TAB PO PRN (18:40)
[2025-01-02] MEDS ORDERED: MAG HYDROX/AL HYDROX/SIMETH 355 ML BOTTLE PO PRN (18:40)
[2025-01-02] MEDS ORDERED: MAGNESIUM HYDROXIDE 2,400 MG/30 ML CUP PO PRN (18:40)
[2025-01-02] MEDS ORDERED: IBUPROFEN 600 MG TAB PO PRN (18:40)
[2025-01-02] MEDS ORDERED: LORazepam 2 MG/ML INJ IM PRN (19:02)
[2025-01-02] MEDS: LORazepam 1 MG TAB PO PRN (21:39)
[2025-01-03 08:33] LABS: Basophils # (A) 0.04 10*3/uL (0.00-0.10); Basophils % (A) 0.4 %; Eosinophils # (A) 0.23 10*3/uL (0.04-0.35); Eosinophils % (A) 2.2 %; HCT 41.3 % (39.6-50.0); HGB 14.1 g/dL (13.0-17.0); Lymphocytes # (A) 2.33 10*3/uL (0.90-5.00); Lymphocytes % (A) 22.7 %; MCH 29.5 pg (27.0-32.0); MCHC 34.1 g/dL (32.0-37.0); MCV 86.4 fL (80.0-97.0); Mean Platelet Volume 9.3 fL (9.5-12.2); Monocytes # (A) 0.67 10*3/uL (0.20-1.00); Monocytes % (A) 6.5 %; Neutrophils # (A) 6.95 10*3/uL (1.80-7.70); Neutrophils % (A) 67.8 %; Platelet Count 386 10*3/uL (140-440); RBC 4.78 10*6/uL (4.40-5.60); RDW 12.2 % (11.5-14.5); WBC 10.26 10*3/uL (4.50-10.00)
[2025-01-03 08:54] LABS: ALT 59 U/L (4-49); AST 46 U/L (17-59); African American GFR (CKD) >90 (>60 ml/min/1.73 sqM); Albumin 3.7 g/dL (3.5-5.0); Alkaline Phosphatase 145 U/L (38-126); Anion Gap 5 mmol/L; Blood Urea Nitrogen 12 mg/dL (9-20); Calcium 9.9 mg/dL (8.4-10.2); Carbon Dioxide 29 mmol/L (22-30); Chloride 106 mmol/L (98-107); Glucose 87 mg/dL (74-99); Non-African American GFR(CKD) >90 (>60 ml/min/1.73 sqM); Potassium 3.7 mmol/L (3.5-5.1); Sodium 140 mmol/L (137-145); Total Protein 6.6 g/dL (6.3-8.2)
[2025-01-03] MEDS: NICOTINE 14MG/24HR PATCH TRANSDERM SCH (10:38)
[2025-01-03] MEDS: MULTIVITAMINS, THERA 1 EACH TAB PO SCH (10:38)
[2025-01-03] MEDS: FOLIC ACID 1 MG TAB PO SCH (10:38)
[2025-01-03] MEDS: THIAMINE 100 MG TAB PO SCH (10:38)
[2025-01-03] MEDS: LORazepam 1 MG TAB PO PRN (10:41)
--- NOTE | 2025-01-03 11:47 | P.CONS ---
History of Present Illness - Reason for Consult Consult date: 01/03/25 - History of Present Illness This is a 39-year-old male with medical history significant for chronic alcoholism and prescription drug abuse. Patient reports to the mental health unit with complaints of suicidal ideations. He reports has been drinking 1/5 a week for the last week and then lost his housing 3 days ago which prompted his feelings of suicidal ideation and depression. He did attempt to get into the [facility] and was able to do so came to the ER for further evaluation. He he has a recent fracture on the left hand and there is a cast noted. He follows with Dr. Amaral for this and states the cast will stay on until the end of January. He is not reporting any significant pain or d iscomfort to the fracture site. Was admitted to the mental health unit for evaluation. No reported home medications. He was started on Ativan CIWA protocol. He does not appear to be actively withdrawing at this time. He states that he has no significant medical history and is not taking any med ications on a daily basis. He denies any tobacco use. REVIEW OF SYSTEMS: CONSTITUTIONAL: No fever, no malaise, no fatigue. HEENT: No recent visual problems or hearing problems. Denied any sore throat. CARDIOVASCULAR: No chest pain, orthopnea, PND, no palpitations, no syncope. PULMONARY: No shortness of breath, no cough, no hemoptysis. GASTROINTESTINAL: No diarrhea, no nausea, no vomiting, no abdominal pain. NEUROLOGICAL: No headaches, no weakness, no numbness. HEMATOLOGICAL: Denies any bleeding or petechiae. GENITOURINARY: Denies any burning micturition, frequency, or urgency. MUSCULOSKELETAL/RHEUMATOLOGICAL: Denies any joint pain, swelling, or any muscle pain. ENDOCRINE: Denies any polyuria or polydipsia. The rest of the 14-point review of systems is negative. PHYSICAL EXAMINATION: GENERAL: The patient is alert and oriented x3, not in any acute distress. Well developed, well nourished. HEENT: Pupils are round and equally reacting to light. EOMI. No scleral icterus. No conjunctival pallor. Normocephalic, atraumatic. No pharyngeal erythema. No thyromegaly. CARDIOVASCULAR: S1 and S2 present. No murmurs, rubs, or gallops. PULMONARY: Chest is clear to auscultation, no wheezing or crackles. ABDOMEN: Soft, nontender, nondistended, normoactive bowel sounds. No palpable organomegaly. MUSCULOSKELETAL: No joint swelling or deformity. EXTREMITIES: No cyanosis, clubbing, or pedal edema. NEUROLOGICAL: Gross neurological examination did not reveal any focal deficits. SKIN: No rashes. Assessment Suicidal ideation Homelessness Alcohol abuse Description drug abuse Recent fracture on the left hand wrist area in a cast following with an orthopedic doctor in [place]. [facility] Pending evaluation by psychiatry Symptomatic care to continue Please reach out for any further questions or concerns will follow along as needed this hospital stay Thank you for this consultation The impression and plan of care has been dictated by Elen Tirado, Nurse Practitioner as directed. Dr. Chong MD I have performed a history and physical examination and medical decision making of this patient, discussed the same with the dictator, and agree with the dictators assessment and plan as written, documented as a scribe. Based on total visit time, I have performed more than 50% of this visit. Past Medical History Past Medical History: No Reported History Additional Past Medical History / Comment(s): sober etoh 18 months 08/26- started drinking again 12/25 History of Any Multi-Drug Resistant Organisms: None Reported Past Surgical History: No Surgical Hx Reported Additional Past Surgical History / Comment(s): left ring finger and hand surgery from a break 2024- currently has hard cast to LFA and hand 01/02/25 Past Anesthesia/Blood Transfusion Reactions: No Reported Reaction Past Psychological History: Depression Smoking Status: Former smoker Past Alcohol Use History: Daily, Heavy Past Drug Use History: Prescription Drug Abuse - Past Family History Father Family Medical History: Liver Disease Medications and Allergies Home Medications Medication Instructions Recorded Confirmed Type No Known Home Medications 01/02/25 01/02/25 History Allergies Allergy/AdvReac Type Severity Reaction Status Date / Time No Known Allergies Allergy Verified 01/02/25 16:10 Physical Exam Vitals: Vital Signs Temp Pulse Pulse Resp BP BP Pulse Ox 01/02/25 20:30 97.7 F 97 18 146/79 97 01/02/25 19:33 98.5 F 94 17 134/76 100 01/02/25 09:33 86 18 144/81 98 Intake and Output 01/02/25 01/03/25 01/03/25 22:59 06:59 14:59 Other: Weight 73.119 kg Results CBC & Chem 7: 01/03/25 08:00 01/03/25 08:00 Assessment and Plan Time with Patient: Less than 30
--- NOTE | 2025-01-03 13:46 | P.HP ---
Psychiatric H&P - . H&P Date: 01/03/25 History & Physical: Allergies Allergy/AdvReac Type Severity Reaction Status Date / Time No Known Allergies Allergy Verified 01/02/25 16:10 Vital Signs Temp 97.7 F 01/02/25 20:30 Pulse 97 01/02/25 20:30 Resp 18 01/02/25 20:30 BP 146/79 01/02/25 20:30 Pulse Ox 97 01/02/25 20:30 FiO2 Intake & Output 01/02/25 01/03/25 01/03/25 18:59 06:59 18:59 Weight 73.119 kg Laboratory Last Values WBC 10.26 10*3/uL (4.50-10.00) H 01/03/25 08:00 RBC 4.78 10*6/uL (4.40-5.60) 01/03/25 08:00 Hgb 14.1 g/dL (13.0-17.0) 01/03/25 08:00 Hct 41.3 % (39.6-50.0) 01/03/25 08:00 MCV 86.4 fL (80.0-97.0) 01/03/25 08:00 MCH 29.5 pg (27.0-32.0) 01/03/25 08:00 MCHC 34.1 g/dL (32.0-37.0) 01/03/25 08:00 Plt Count 386 10*3/uL (140-440) 01/03/25 08:00 MPV 9.3 fL (9.5-12.2) L 01/03/25 08:00 Immature Gran % (Auto) 0.4 % 01/03/25 08:00 Neutrophils % 67.8 % 01/03/25 08:00 Lymphocytes % 22.7 % 01/03/25 08:00 Monocytes % 6.5 % 01/03/25 08:00 Eosinophils % 2.2 % 01/03/25 08:00 Basophils % 0.4 % 01/03/25 08:00 Immature Gran # 0.04 10*3/uL (0.00-0.04) 01/03/25 08:00 Neutrophils # 6.95 10*3/uL (1.80-7.70) 01/03/25 08:00 Lymphocytes # 2.33 10*3/uL (0.90-5.00) 01/03/25 08:00 Monocytes # 0.67 10*3/uL (0.20-1.00) 01/03/25 08:00 Eosinophils # 0.23 10*3/uL (0.04-0.35) 01/03/25 08:00 Basophils # 0.04 10*3/uL (0.00-0.10) 01/03/25 08:00 Sodium 140 mmol/L (137-145) 01/03/25 08:00 Potassium 3.7 mmol/L (3.5-5.1) 01/03/25 08:00 Chloride 106 mmol/L (98-107) 01/03/25 08:00 Carbon Dioxide 29 mmol/L (22-30) 01/03/25 08:00 Anion Gap 5 mmol/L 01/03/25 08:00 BUN 12 mg/dL (9-20) 01/03/25 08:00 Creatinine 0.80 mg/dL (0.66-1.25) 01/03/25 08:00 Est GFR (CKD-EPI)AfAm >90 (>60 ml/min/1.73 sqM) 01/03/25 08:00 Est GFR (CKD-EPI)NonAf >90 (>60 ml/min/1.73 sqM) 01/03/25 08:00 Glucose 87 mg/dL (74-99) 01/03/25 08:00 Calcium 9.9 mg/dL (8.4-10.2) 01/03/25 08:00 Total Bilirubin 1.0 mg/dL (0.2-1.3) 01/03/25 08:00 AST 46 U/L (17-59) 01/03/25 08:00 ALT 59 U/L (4-49) H 01/03/25 08:00 Alkaline Phosphatase 145 U/L (38-126) H 01/03/25 08:00 Total Protein 6.6 g/dL (6.3-8.2) 01/03/25 08:00 Albumin 3.7 g/dL (3.5-5.0) 01/03/25 08:00 TSH 1.160 mIU/L (0.465-4.680) 01/03/25 08:00 SARS-CoV-2 (PCR) Not Detected (Not Detectd) 01/02/25 09:33 01/03/25 11:58 IDENTIFYING DATA: Patient is a 39 yo male, he is currently homeless he has no kids he is unemployed single. HPI: Patient presented to the hospital yesterday and was evaluated by EPS and according to note "Pt sleeping on stretcher easily awaken to name. Pt claims he has bees homeless for a week and has an alcohol problem. Pt claims suicidal ideation and increased depression now that he is homeless. Though pt is awake and alert he would not sit up and wished telegraphic typewriter operator to not turn on lights. Pt gives only short answers to questions and makes no eye contact." Patient was seen today for psychiatric evaluation. Patient appeared to be disheveled in appearance, he was fairly directable during conversation. Claims that he has been drinking more lately drinking about 1/5 of vodka a day. Claims that he has been feeling more depressed and anxious, claims that recently he has been having more suicidal thoughts with no specific plan. Claims that he wanted treatment and came to the hospital himself. States that he is struggling with homelessness for the past 1-1/2 weeks. Claims that there is also family issues going on however he was fairly guarded about it. Seems to be feeling more isolative. States that his sleep is poor appetite is fair. Claims that he is still having suicidal thoughts, no specific plan.. Patient denies any homicidal ideations intent or plan. At this time patient denies any auditory or visual hallucinations. Patient denies any flight of ideas racing thoughts and increased in goal directed behavior. Patient admits to using alcohol as noted above, claims that his last drink was 2 days ago, denies any history of severe withdrawals or withdrawal seizures in the past however does have mild shakes at this time. Denies any other recreational drug use PAST PSYCHIATRIC HISTORY: Patient has a history of depression, anxiety, alcohol use. Patient claims that he was previously on medications including Lexapro and Trileptal however has been off medications for quite some time now. Patient states that his last psychiatric hospitalization was at [facility] for 3 years ago. Patient was last seen at [facility] for outpatient psychiatric follow-up by Dr. Wan in 2022. Patient denies any history of suicide attempts in the past. PMH: as per ER note ALLERGIES: as per EMR CHEMICAL DEPENDENCY HISTORY: as per HPI FAMILY PSYCHIATRIC/SUBSTANCE USE HISTORY: Denies SOCIAL HISTORY: Patient was born and raised in [place] and then moved to [place]. Claims that he completed high school did his bachelor's degree. 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 Currently unemployed he is single he has no kids. He is currently homeless. 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 MENTAL STATUS EXAM: General Appearance: Patient appears to be thin, disheveled hair, has a salcedo, wearing glasses, stated age is alert, directable, and attempts to cooperate. Patient appears to have poor hygiene and grooming. Behavior: Patient is seated without any agitated behavior. Attempts to cooperate Speech: Patient's speech is fluent and nonpressured. Fairly concrete Mood/Affect: Patient reports their mood is depressed and anxious, affect is congruent and constricted. Suicidality/Homicidality: Patient denies having any homicidal ideation intent or plan. Endorsing suicidal thoughts no specific plan. Perceptions: Patient denies any visual hallucinations and denies any auditory hallucinations Though content/process: There is no evidence of any delusional thought content and thought process is linear and goal-directed. Memory and concentration: AOX3, grossly intact for the purposes of this session. Can spell "WORLD" backwards Judgment and insight: Poor STRENGTHS/WEAKNESSES: strength is that patient is resilient. Weakness is that patient has poor judgment and is impulsive INTELLECT: Average IMPRESSIONS: Major depressive disorder, without psychotic features Generalized anxiety disorder Alcohol use disorder Homelessness PLAN: -Patient is admitted under voluntary status to MHU for stabilization of psychiatric symptoms and safety. Patient has signed adult voluntary form and has signed medication consent and is placed in patient's chart. -Medications : Zoloft 25 mg nightly for mood/anxiety, trazodone 50 mg nightly for insomnia/mood. Start Librium 10 mg 4 times daily for alcohol withdrawal plan to taper down. Patient was offered anticraving medications however declined them at this time. -Ativan and Haldol PRN for agitation/aggression -Started thiamine, MVM for etoh use -[facility] protocol with Ativan PRN for ETOH withdrawal. -Patient was counselled on substance abuse and desired to cut back on use. Will offer patient subtance use rehab -Patient was informed of the risks, benefits and side effects of the medications and patient verbally consented to taking the medications. Patient signed med consent form and was placed in chart. Patient was offered medication information and declined it -Internal Medicine consult to perform medical evaluation and physical. -NRT -not needed as patient does not smoke -SW on board for discharge planning. Encourage patient to participate in groups to work on coping skills. 01/03/25 13:40
[2025-01-03 14:13] LABS: Appearance,Urine Clear (Clear); Bilirubin,Urine Negative (Negative); Blood,Urine Negative (Negative); Color,Urine Yellow; Glucose,Urine (UA) Negative (Negative); Ketones,Urine Negative (Negative); Leukocyte Esterase,Urine Negative (Negative); Nitrite,Urine Negative (Negative); Protein,Urine Trace (Negative); Urobilinogen,Urine <2.0 mg/dL (<2.0)
[2025-01-03 14:23] LABS: Amphetamine Screen,Urine Not Detected (NotDetected); Barbiturate Screen,Urine Not Detected (NotDetected); Benzodiazepines Screen,Urine Detected (NotDetected); Cocaine Screen,Urine Not Detected (NotDetected); Methadone Screen, Urine Not Detected (NotDetected); Opiate Screen,Urine Not Detected (NotDetected); Oxycodone Screen, Urine Not Detected (NotDetected); Phencyclidine Screen,Urine Not Detected (NotDetected); Tricyclic Antidepressant,Urine Not Detected (NotDetected); Urn Cannabinoid Scrn Not Detected (NotDetected)
[2025-01-03 15:09] LABS: Chol/HDL Ratio 2.45 Ratio; LDL Cholesterol,Calculated 87.7 mg/dL (0.0-131.0); VLDL Calculation 18.18 mg/dL (5.00-40.00)
[2025-01-03] MEDS: traZODone HCL 50 MG TAB PO SCH (21:46)
[2025-01-03] MEDS: SERTRALINE 25 MG TAB PO ONE (21:46)
--- NOTE | 2025-01-04 09:45 | P.PN ---
Progress Note - Text Progress Note Date: 01/04/25 Interval HIstory: Patient was seen today laying in bed agreeable to speak to fha underwriter today. Renee ent will continues to appear to be mildly disheveled in appearance. We spoke about rehab option, he claims that he is not interested in going to rehab at this time states that they refused him previously and he does not want to go back. He continues to be fairly concrete, fairly superficial. He claims that he slept fairly last night, claims that his withdrawal symptoms have been improving since yesterday. Claims that he has a fair appetite at this time, mainly keeping himself has been been going to some groups. Claims that his mood and anxiety been mildly improving since yesterday. Denies any auditory or visual hallucinations denies any suicidal or homicidal ideations intent or plan. MENTAL STATUS EXAM: General Appearance: Patient appears to be thin, disheveled hair, has a salcedo, w earing glasses, stated age is alert, directable, and attempts to cooperate. Patient appears to have poor hygiene and grooming. Behavior: Patient is seated without any agitated behavior. Attempts to c ooperate, somewhat superficial Speech: Patient's speech is fluent and nonpressured. Fairly concrete Mood/Affect: Patient reports their mood is depressed and anxious, improving mildly, affect is congruent and constricted. Suicidality/Homicidality: Patient denies having any homicidal ideation intent or plan. Denies having any suicidal thoughts no specific plan. Perceptions: Patient denies any visual hallucinations and denies any auditory hallucinations Though content/process: There is no evidence of any delusional thought content and thought process is linear and goal-directed. Fairly concrete Memory and concentration: AOX3, grossly intact for the purposes of this session Judgment and insight: Poor, improving mildly IMPRESSIONS: Major depressive disorder, without psychotic features Generalized anxiety disorder Alcohol use disorder Homelessness PLAN: -Patient is admitted under voluntary status to MHU for stabilization of psychiatric symptoms and safety. Patient has signed adult voluntary form and has signed medication consent and is placed in patient's chart. -Medications : Increase Zoloft 50 mg nightly for mood/anxiety, trazodone 50 mg nightly for insomnia/mood. Continue tapering Librium 10 mg 3 times daily for alcohol withdrawal plan to taper down. Patient was offered anticraving medications however declined them at this time. -Ativan and Haldol PRN for agitation/aggression -thiamine, MVM for etoh use -[facility] protocol with Ativan PRN for ETOH withdrawal. -NRT -not needed as patient does not smoke -SW on board for discharge planning. Encourage patient to participate in groups to work on coping skills. He is not interested in rehab at this time. Will likely be [facility] to [facility] if they are agreeable to take him back.
[2025-01-04] MEDS: SERTRALINE 50 MG TAB PO SCH (21:55)
[2025-01-05 10:40] VITALS: RESP 16
--- NOTE | 2025-01-05 11:41 | P.PN ---
Progress Note - Text Progress Note Date: 01/05/25 Interval HIstory: Patient was seen today laying in bed agreeable to speak to check writer today. Renee ent will continues to appear to be mildly disheveled in appearance, improving mildly. Denies any issues overnight. Patient continues to be mentally keeping himself on the unit, not interested in going milligrams. Continues to refuse rehab. He was agreeable to be discharged tomorrow if he is doing well. He has been showering, up for meals. He continues to be fairly concrete, fairly superficial. He claims that his mood and anxiety been improving. He was requesting to have his trazodone increased a bit more to help him sleep through the night. Denies any auditory or visual hallucinations denies any suicidal or homicidal ideations intent or plan. MENTAL STATUS EXAM: General Appearance: Patient appears to be thin, disheveled hair, has a salcedo, wearing glasses, stated age is alert, directable, and attempts to cooperate. Patient appears to have poor hygiene and grooming. Behavior: Patient is seated without any agitated behavior. Attempts to cooperate, somewhat superficial Speech: Patient's speech is fluent and nonpressured. Fairly concrete Mood/Affect: Patient reports their mood is improving mildly, affect is congruent and constricted. Suicidality/Homicidality: Patient denies having any homicidal ideation intent or plan. Denies having any suicidal thoughts no specific plan. Perceptions: Patient denies any visual hallucinations and denies any auditory hallucinations Though content/process: There is no evidence of any delusional thought content and thought process is linear and goal-directed. Fairly concrete, improving mildly Memory and concentration: AOX3, grossly intact for the purposes of this session Judgment and insight: improving mildly IMPRESSIONS: Major depressive disorder, without psychotic features Generalized anxiety disorder Alcohol use disorder Homelessness PLAN: -Patient is admitted under voluntary status to MHU for stabilization of psychiatric symptoms and safety. Patient has signed adult voluntary form and has signed medication consent and is placed in patient's chart. -Medications : Zoloft 50 mg nightly for mood/anxiety, increase trazodone 100 mg nightly for insomnia/mood. Continue tapering Librium, will be discotninued today -Ativan and Haldol PRN for agitation/aggression -thiamine, MVM for etoh use -NRT -not needed as patient does not smoke -SW on board for discharge planning. Encourage patient to participate in groups to work on coping skills. He is not interested in rehab at this time. plan [facility] jail.
[2025-01-05] MEDS: traZODone HCL 100 MG TAB PO SCH (21:27)
[2025-01-06 11:13] VITALS: BP 120/72; PULSE 122; TEMP 98.6
--- NOTE | 2025-01-06 19:57 | P.DS ---
Providers Date of admission: 01/02/25 18:37 Expected date of discharge: 01/06/25 Attending physician: Trey Steiner MD Consults: 01/02/25 18:40 Consult Physician Routine Consulting Provider: [facility] Consult Reason/Comments: H&P and medical Do you want consulting provider notified?: Yes Primary care physician: [facility] Course: Admission HPI: Admission note was completed by Dr. Steiner: "IDENTIFYING DATA: Patient is a 39 yo male, he is currently homeless he has no kids he is unemployed single. HPI: Patient presented to the hospital yesterday and was evaluated by EPS and according to note "Pt sleeping on stretcher easily awaken to name. Pt claims he has bees homeless for a week and has an alcohol problem. Pt claims suicidal ideation and increased depression now that he is homeless. Though pt is awake and alert he would not sit up and wished medical underwriter to not turn on lights. Pt gives only short answers to questions and makes no eye contact." Patient was seen today for psychiatric evaluation. Patient appeared to be disheveled in appearance, he was fairly directable during conversation. Claims that he has been drinking more lately drinking about 1/5 of vodka a day. Claims that he has been feeling more depressed and anxious, claims that recently he has been having more suicidal thoughts with no specific plan. Claims that he wanted treatment and came to the hospital himself. States that he is struggling with homelessness for the past 1-1/2 weeks. Claims that there is also family issues going on however he was fairly guarded about it. Seems to be feeling more isolative. States that his sleep is poor appetite is fair. Claims that he is still having suicidal thoughts, no specific plan.. Patient denies any homicidal ideations intent or plan. At this time patient denies any auditory or visual hallucinations. Patient denies any flight of ideas racing thoughts and increased in goal directed behavior. Patient admits to using alcohol as noted above, claims that his last drink was 2 days ago, denies any history of severe withdrawals or withdrawal seizures in the past however does have mild shakes at this time. Denies any other recreational drug use PAST PSYCHIATRIC HISTORY: Patient has a history of depression, anxiety, alcohol use. Patient claims that he was previously on medications including Lexapro and Trileptal however has been off medications for quite some time now. Patient states that his last psychiatric hospitalization was at [facility] for 3 years ago. Patient was last seen at [facility] for outpatient psychiatric follow- up by Dr. Wan in 2022. Patient denies any history of suicide attempts in the past. PMH: as per ER note ALLERGIES: as per EMR CHEMICAL DEPENDENCY HISTORY: as per HPI FAMILY PSYCHIATRIC/SUBSTANCE USE HISTORY: Denies SOCIAL HISTORY: Patient was born and raised in [place] and then moved to [place]. Claims that he completed high school did his bachelor's degree. Claims that he used to work at the [employer] and doing [employer], also has worked several odd jobs in the past. Currently unemployed he is single he has no kids. He is currently homeless. Claims that he did have a history of going to [facility] several times and also driving under the influence. MENTAL STATUS EXAM: General Appearance: Patient appears to be thin, disheveled hair, has a salcedo, wearing glasses, stated age is alert, directable, and attempts to cooperate. Patient appears to have poor hygiene and grooming. Behavior: Patient is seated without any agitated behavior. Attempts to cooperate Speech: Patient's speech is fluent and nonpressured. Fairly concrete Mood/Affect: Patient reports their mood is depressed and anxious, affect is congruent and constricted. Suicidality/Homicidality: Patient denies having any homicidal ideation intent or plan. Endorsing suicidal thoughts no specific plan. Perceptions: Patient denies any visual hallucinations and denies any auditory hallucinations Though content/process: There is no evidence of any delusional thought content and thought process is linear and goal-directed. Memory and concentration: AOX3, grossly intact for the purposes of this session. Can spell "WORLD" backwards Judgment and insight: Poor STRENGTHS/WEAKNESSES: strength is that patient is resilient. Weakness is that patient has poor judgment and is impulsive INTELLECT: Average IMPRESSIONS: Major depressive disorder, without psychotic features Generalized anxiety disorder Alcohol use disorder Homelessness PLAN: -Patient is admitted under voluntary status to MHU for stabilization of psychiatric symptoms and safety. Patient has signed adult voluntary form and has signed medication consent and is placed in patient's chart. -Medications : Zoloft 25 mg nightly for mood/anxiety, trazodone 50 mg nightly for insomnia/mood. Start Librium 10 mg 4 times daily for alcohol withdrawal plan to taper down. Patient was offered anticraving medications however declined them at this time. -Ativan and Haldol PRN for agitation/aggression -Started thiamine, MVM for etoh use -CIWA protocol with Ativan PRN for ETOH withdrawal. -Patient was counselled on substance abuse and desired to cut back on use. Will offer patient subtance use rehab -Patient was informed of the risks, benefits and side effects of the medications and patient verbally consented to taking the medications. Patient signed med consent form and was placed in chart. Patient was offered medication information and declined it -Internal Medicine consult to perform medical evaluation and physical. -NRT -not needed as patient does not smoke -SW on board for discharge planning. Encourage patient to participate in groups to work on coping skills. " Hospital course: Upon admission to the unit patient was directable and agreeable to commence treatment and signed adult voluntary form. Patient got along well with other patients on the unit and followed unit protocol. Patient was compliant with the medications and denied any side effects throughout hospital course. Patient was started on Zoloft, Trazodone and Librium. Patient spoke of his stressors and engaged in therapy both group and individual. Patient was also seen by medical team for history and physical exam. Throughout the course of the hospitalization patient gradually improved with regards to [mood, anxiety], sleep and [returned back to their baseline level of functioning][became more future oriented with improved insight and judgment]. On the day of discharge patient denied any suicidal or homicidal ideations intent or plan denied any auditory or visual hallucinations. Patient endorsed wanting to live for his health. The patient denied any access to guns or weapons. Patient denied any paranoia and did not endorse any delusions. Patient does have a significant history of substance abuse and was counseled on abstaining from all substances including alcohol and marijuana. Patient was offered however declined inpatient substance-abuse rehab. Patient elected to do outpatient substance use treatment program through [facility]. Patient was also counseled on the medications and need for regular compliance and was encouraged to follow-up with their outpatient appointment for mental health and also for primary care. Mental status exam: General Appearance: Patient appears to be stated age is alert, pleasant, and c ooperative. Patient is in no acute distress and has improved hygiene and grooming Behavior: Patient is calmly seated without any agitated behavior. Speech: Patient's speech is fluent and nonpressured. Mood/Affect: Patient reports their mood is "[better]", affect is congruent and euthymic. Suicidality/Homicidality: Patient denies having any suicidal or homicidal ideation intent or plan. Perceptions: Patient denies any auditory or visual hallucinations. Though content/process: There is no evidence of any delusional thought content and thought process is linear and goal-directed. [more future oriented] Memory and concentration: AOX3, grossly intact for the purposes of this session. Can spell "WORLD" backwards correctly. Judgment and insight: [chronically poor, however has] improved with guarded prognosis Impression: Major depressive disorder, without psychotic features Generalized anxiety disorder Alcohol use disorder Homelessness Plan: -Continue with discharge today as patient has improved and stabilized psychiatrically and is not currently an imminent threat to himself and/or others. Patient will remain at chronically elevated risk for harm to self and/or others due to his impulsivity and polysubstance abuse. -Continue medications: Zoloft 50 mg QHS for depression/anxiety. Trazodone 100 mg QHS for sleep. Discharge Medication List Folic Acid 1 mg PO DAILY 30 Days #30 tab 01/06/25 [Rx] Multivitamins, Thera [Multivitamin (formulary)] 1 each PO DAILY 30 Days #30 tab 01/06/25 [Rx] Sertraline [Zoloft] 50 mg PO HS 30 Days #30 tab 01/06/25 [Rx] Thiamine [Vitamin B-1] 100 mg PO DAILY 30 Days #30 tab 01/06/25 [Rx] traZODone HCL [Desyrel] 100 mg PO HS 30 Days #30 tab 01/06/25 [Rx] -Patient was counseled on the need for medication compliance and appropriate follow-up at mental health and also primary care for medical issues. Patient verbalized understanding and agreed. -Social work to [arrange for and conduct family meeting to ensure safety upon discharge and answer any questions/concerns.] Social work also to arrange for patients follow up appointments [with [facility]] for psychiatric care along with follow up with primary care provider. -Patient counseled on abstaining from recreational drugs and marijuana and alcohol. Was informed/educated on the adverse effects on their physical and mental health. [Patient verbally agreed and understood]. [Patient was offered substance abuse treatment however declined at this time.] -Patient was instructed to return to the hospital or seek immediate medical care if their psychiatric or medical symptoms do worsen or reoccur. [INSERT DATA FORMATS] Laboratory Tests Range/Units 01/02/25 01/03/25 01/03/25 09:33 08:00 08:00 WBC (4.50-10.00) 10*3/uL 10.26 H RBC (4.40-5.60) 10*6/uL 4.78 Hgb (13.0-17.0) g/dL 14.1 Hct (39.6-50.0) % 41.3 MCV (80.0-97.0) fL 86.4 MCH (27.0-32.0) pg 29.5 MCHC (32.0-37.0) g/dL 34.1 Plt Count (140-440) 10*3/uL 386 MPV (9.5-12.2) fL 9.3 L Immature Gran % (Auto) % 0.4 Neutrophils % % 67.8 Lymphocytes % % 22.7 Monocytes % % 6.5 Eosinophils % % 2.2 Basophils % % 0.4 Immature Gran # (0.00-0.04) 10*3/uL 0.04 Neutrophils # (1.80-7.70) 10*3/uL 6.95 Lymphocytes # (0.90-5.00) 10*3/uL 2.33 Monocytes # (0.20-1.00) 10*3/uL 0.67 Eosinophils # (0.04-0.35) 10*3/uL 0.23 Basophils # (0.00-0.10) 10*3/uL 0.04 Sodium (137-145) mmol/L Potassium (3.5-5.1) mmol/L Chloride (98-107) mmol/L Carbon Dioxide (22-30) mmol/L Anion Gap mmol/L BUN (9-20) mg/dL Creatinine (0.66-1.25) mg/dL Est GFR (CKD-EPI)AfAm (>60 ml/min/1.73 sqM) Est GFR (CKD-EPI)NonAf (>60 ml/min/1.73 sqM) Glucose (74-99) mg/dL Estimated Ave Glu mg/dL mg/dL 111 Hemoglobin A1c (<=6.0) % 5.5 Calcium (8.4-10.2) mg/dL Total Bilirubin (0.2-1.3) mg/dL AST (17-59) U/L ALT (4-49) U/L Alkaline Phosphatase (38-126) U/L Total Protein (6.3-8.2) g/dL Albumin (3.5-5.0) g/dL Triglycerides (0.00-149.00) mg/dL Cholesterol (0.00-200.00) mg/dL LDL Cholesterol, Calc (0.0-131.0) mg/dL VLDL Cholesterol, Calc (5.00-40.00) mg/dL HDL Cholesterol (40.00-60.00) mg/dL Cholesterol/HDL Ratio Ratio TSH (0.465-4.680) mIU/L Urine Color Urine Appearance (Clear) Urine pH (5.0-8.0) Ur Specific Fifty Six (1.001-1.035) Urine Protein (Negative) Urine Glucose (UA) (Negative) Urine Ketones (Negative) Urine Blood (Negative) Urine Nitrite (Negative) Urine Bilirubin (Negative) Urine Urobilinogen (<2.0) mg/dL Ur Leukocyte Esterase (Negative) Urine Opiates Screen (NotDetected) Ur Oxycodone Screen (NotDetected) Urine Methadone Screen (NotDetected) Ur Barbiturates Screen (NotDetected) U Tricyclic Antidepress (NotDetected) Ur Phencyclidine Scrn (NotDetected) Ur Amphetamines Screen (NotDetected) U Methamphetamines Scrn (NotDetected) U Benzodiazepines Scrn (NotDetected) Urine Cocaine Screen (NotDetected) U Marijuana (THC) Screen (NotDetected) SARS-CoV-2 (PCR) (Not Detectd) Not Detected Range/Units 01/03/25 01/03/25 08:00 14:00 WBC (4.50-10.00) 10*3/uL RBC (4.40-5.60) 10*6/uL Hgb (13.0-17.0) g/dL Hct (39.6-50.0) % MCV (80.0-97.0) fL MCH (27.0-32.0) pg MCHC (32.0-37.0) g/dL Plt Count (140-440) 10*3/uL MPV (9.5-12.2) fL Immature Gran % (Auto) % Neutrophils % % Lymphocytes % % Monocytes % % Eosinophils % % Basophils % % Immature Gran # (0.00-0.04) 10*3/uL Neutrophils # (1.80-7.70) 10*3/uL Lymphocytes # (0.90-5.00) 10*3/uL Monocytes # (0.20-1.00) 10*3/uL Eosinophils # (0.04-0.35) 10*3/uL Basophils # (0.00-0.10) 10*3/uL Sodium (137-145) mmol/L 140 Potassium (3.5-5.1) mmol/L 3.7 Chloride (98-107) mmol/L 106 Carbon Dioxide (22-30) mmol/L 29 Anion Gap mmol/L 5 BUN (9-20) mg/dL 12 Creatinine (0.66-1.25) mg/dL 0.80 Est GFR (CKD-EPI)AfAm (>60 ml/min/1.73 sqM) >90 Est GFR (CKD-EPI)NonAf (>60 ml/min/1.73 sqM) >90 Glucose (74-99) mg/dL [address] Glu mg/dL mg/dL Hemoglobin A1c (<=6.0) % Calcium (8.4-10.2) mg/dL 9.9 Total Bilirubin (0.2-1.3) mg/dL 1.0 AST (17-59) U/L 46 ALT (4-49) U/L 59 H Alkaline Phosphatase (38-126) U/L 145 H Total Protein (6.3-8.2) g/dL 6.6 Albumin (3.5-5.0) g/dL 3.7 Triglycerides (0.00-149.00) mg/dL 90.90 Cholesterol (0.00-200.00) mg/dL 179.00 LDL Cholesterol, Calc (0.0-131.0) mg/dL 87.7 VLDL Cholesterol, Calc (5.00-40.00) mg/dL 18.18 HDL Cholesterol (40.00-60.00) mg/dL 73.10 H Cholesterol/HDL Ratio Ratio 2.45 TSH (0.465-4.680) mIU/L 1.160 Urine Color Yellow Urine Appearance (Clear) Clear Urine pH (5.0-8.0) 6.0 Ur Specific Fifty Six (1.001-1.035) 1.020 Urine Protein (Negative) Trace H Urine Glucose (UA) (Negative) Negative Urine Ketones (Negative) Negative Urine Blood (Negative) Negative Urine Nitrite (Negative) Negative Urine Bilirubin (Negative) Negative Urine Urobilinogen (<2.0) mg/dL <2.0 Ur Leukocyte Esterase (Negative) Negative Urine Opiates Screen (NotDetected) Not Detected Ur Oxycodone Screen (NotDetected) Not Detected Urine Methadone Screen (NotDetected) Not Detected Ur Barbiturates Screen (NotDetected) Not Detected U Tricyclic Antidepress (NotDetected) Not Detected Ur Phencyclidine Scrn (NotDetected) Not Detected Ur Amphetamines Screen (NotDetected) Not Detected U Methamphetamines Scrn (NotDetected) Not Detected U Benzodiazepines Scrn (NotDetected) Detected H Urine Cocaine Screen (NotDetected) Not Detected U Marijuana (THC) Screen (NotDetected) Not Detected SARS-CoV-2 (PCR) (Not Detectd) Vital Signs (72 hours) 01/03/25 01/04/25 01/04/25 21:00 09:47 22:16 Temperature 97.9 F 99.0 F 98.3 F Pulse Rate [ 95 115 H 102 H Right] Respiratory 16 16 18 Rate Blood Pressure 135/77 113/77 137/88 [Right Arm] O2 Sat by Pulse 95 98 100 Oximetry 01/05/25 01/05/25 01/06/25 09:00 21:00 11:11 Temperature 97.7 F 98.3 F 98.6 F Pulse Rate [ 103 H 91 122 H Right] Respiratory 16 16 16 Rate Blood Pressure 118/76 133/91 120/72 [Right Arm] O2 Sat by Pulse 96 98 98 Oximetry Patient Condition at Discharge: Fair Plan - Discharge Summary Discharge Rx Participant: No New Discharge Prescriptions: New traZODone HCL [Desyrel] 100 mg PO HS 30 Days #30 tab Thiamine [Vitamin B-1] 100 mg PO DAILY 30 Days #30 tab Folic Acid 1 mg PO DAILY 30 Days #30 tab Multivitamins, Thera [Multivitamin (formulary)] 1 each PO DAILY 30 Days #30 t ab Sertraline [Zoloft] 50 mg PO HS 30 Days #30 tab Discharge Medication List Folic Acid 1 mg PO DAILY 30 Days #30 tab 01/06/25 [Rx] Multivitamins, Thera [Multivitamin (formulary)] 1 each PO DAILY 30 Days #30 tab 01/06/25 [Rx] Sertraline [Zoloft] 50 mg PO HS 30 Days #30 tab 01/06/25 [Rx] Thiamine [Vitamin B-1] 100 mg PO DAILY 30 Days #30 tab 01/06/25 [Rx] traZODone HCL [Desyrel] 100 mg PO HS 30 Days #30 tab 01/06/25 [Rx] Follow up Appointment(s)/Referral(s): [facility] [Outside] - 1 Week [place] [facility] [Outside] - 01/16/25 3:00 pm (01/16/2025 3:00PM - 4:00PM JAVIER BERG 01/20/2025 9:00AM - 10:00AM ANA MARIA OLVERA) Annia Dong MD [Primary Care Provider] - 1-2 days Patient Instructions/Handouts: Depression (DC), Generalized Anxiety Disorder (ED), Abuse of Alcohol (DC) Activity/Diet/Wound Care/Special Instructions: Avoid the use of street drugs and alcohol. Take all medications as prescribed. When you are in need of refills on your medications, please contact your medical provider and/or outpatient psychiatrist/provider to have this done. Please go to your scheduled outpatient appointment for aftercare treatment. If symptoms return or become worse, call the crisis line at and/or go to the nearest emergency room for evaluation. National Suicide Hotline [address] [facility] confidentiality statement: "The information contained in this communication, including attachments, is confidential, may be privileged, and is intended only for the use of the named recipient(s). Unauthorized use, disclosure, forwarding or copying is strictly prohibited and may be unlawful. If you have received this communication in error, please notify me IMMEDIATELY at the phone number or pager listed above. Discharge Disposition: HOME SELF-CARE
== END 2025-01-06 18:21 | disposition home or self-care (01) | DRG 775 ==
LOC: EC 20:20 → 3MHU 01-02 18:37
PROVIDERS: ADMIT Psychiatry & Neurology Psychiatry; ATTEND Psychiatry & Neurology Psychiatry
DX: F10.229 Alcohol dependence with intoxication, unspecified (principal); F10.239 Alcohol dependence with withdrawal, unspecified; F32.9 Major depressive disorder, single episode, unspecified; R45.851 Suicidal ideations; F41.1 Generalized anxiety disorder; Z59.00 Homelessness unspecified; Z56.0 Unemployment, unspecified; Z87.891 Personal history of nicotine dependence
CPT/HCPCS: 80053; 80061; 80306; 81003; 82075; 83036; 84443; 85025; 87635

== ENCOUNTER 2025-02-16 13:25 | Observation (INO) | payer OTHER ==
--- NOTE | 2025-02-16 14:13 | ED ---
General Adult HPI - General Chief complaint: Psychiatric Symptoms Stated complaint: Suicidal Time Seen by Provider: 02/16/25 13:28 Source: patient, RN notes reviewed, old records reviewed Mode of arrival: ambulatory Limitations: no limitations - History of Present Illness Initial comments: This is a 39-year-old male who presents to the emergency department complaining of being suicidal. Patient states he is a drinker and his life is going nowhere so he wants to kill himself. Patient denies any plan but states he has been thinking about it more more. Patient denies any previous attempts. Patient denies any drug use. Patient denies any physical complaints today. Patient denies difficulty breathing shortness of breath or chest pain. Patient has abdominal pain patient has nausea vomiting diarrhea - Related Data Home Medications Medication Instructions Recorded Confirmed No Known Home Medications 02/16/25 02/16/25 Allergies Allergy/AdvReac Type Severity Reaction Status Date / Time No Known Allergies Allergy Verified 02/16/25 14:14 Review of Systems ROS Statement: Those systems with pertinent positive or pertinent negative responses have been documented in the HPI. ROS Other: All systems not noted in ROS Statement are negative. Past Medical History Past Medical History: No Reported History Additional Past Medical History / Comment(s): sober etoh 18 months 08/26- started drinking again 12/25 History of Any Multi-Drug Resistant Organisms: None Reported Past Surgical History: No Surgical Hx Reported Additional Past Surgical History / Comment(s): left ring finger and hand surgery from [facility] 2024 Past Anesthesia/Blood Transfusion Reactions: No Reported Reaction Past Psychological History: Anxiety, Depression Past Alcohol Use History: Daily, Heavy - Past Family History Father Family Medical History: Liver Disease General Exam - General Exam Comments Initial Comments: GENERAL: Patient is well-developed and well-nourished. Patient is nontoxic and well- hydrated and is in no acute distress. Patient appears intoxicated ENT: Neck is soft and supple. No significant lymphadenopathy is noted. Oropharynx is clear. Moist mucous membranes. Neck has full range of motion without eliciting any pain. EYES: The sclera were anicteric and conjunctiva were pink and moist. Extraocular movements were intact and pupils were equal round and reactive to light. Eyelids were unremarkable. PULMONARY: Unlabored respirations. Good breath sounds bilaterally. No audible rales rhonchi or wheezing was noted. CARDIOVASCULAR: There is a regular rate and rhythm without any murmurs gallops or rubs. ABDOMEN: Soft and nontender with normal bowel sounds. SKIN: Skin is clear with no lesions or rashes and otherwise unremarkable. NEUROLOGIC: Patient is alert and oriented x3. Cranial nerves II through XII are grossly intact. Motor and sensory are also intact. Normal speech, volume and content. Symmetrical smile. MUSCULOSKELETAL: Normal extremities with adequate strength and full range of motion. LYMPHATICS: No significant lymphadenopathy is noted PSYCHIATRIC: Patient states he is suicidal without a plan Limitations: no limitations Course Vital Signs 02/16/25 13:33 Temperature 98.1 F Pulse Rate 75 Respiratory 20 Rate Blood Pressure 133/89 O2 Sat by Pulse 98 Oximetry Medical Decision Making - Medical Decision Making Was pt. sent in by a medical professional or institution ([facility], [facility], urgent care, hospital, or retirement...) When possible be specific @ -No Did you speak to anyone other than the patient for history (EMS, parent, family, police, friend...)? What history was obtained from this source @ -No Did you review nursing and triage notes (agree or disagree)? Why? @ -I reviewed and agree with nursing and triage notes Were old charts reviewed (outside hosp., previous admission, EMS record, old EKG, old radiological studies, urgent care reports/EKG's, retirement records)? Report findings @ -No old charts were reviewed Differential Diagnosis? @ -Differential Mental Health Depression, anxiety, bipolar, psychosis, schizophrenia, borderline personality, situational depression, adjustment disorder, behavioral disorder, brain tumor, malingering, substance abuse, encephalopathy, medication reaction, dementia, hypothyroidism, degenerative neurologic disorder, lupus.... This is not meant to be all-inclusive list EKG interpreted by me (3pts min.). @ -As above X-rays interpreted by me (1pt min.). @ -None done CT interpreted by me (1pt min.). @ -None done U/S interpreted by me (1pt. min.). @ -None done What testing was considered but not performed or refused? (CT, X-rays, U/S, labs)? Why? @ -None What meds were considered but not given or refused? Why? @ -None Did you discuss the management of the patient with other professionals (professionals i.e. [facility]ELI Tang, [facility], lab, RT, psych nurse, social secretary, director of claims, teacher, community arts officer, case planner)? Give summary @ -I spoke with [facility] he agreed to admit the patient admitted the patient I wrote admitting orders Was smoking cessation discussed for >3mins.? @ -No Was critical care preformed (if so, how long)? @ -No Were there social determinants of health that impacted care today? How? (Ho melessness, low income, unemployed, alcoholism, drug addiction, transportation, low edu. Level, literacy, decrease access to med. care, assisted, rehab)? @ -No Was there de-escalation of care discussed even if they declined (Discuss DNR or withdrawal of care, Hospice)? DNR status @ -No What co-morbidities impacted this encounter? (DM, HTN, Smoking, COPD, CAD, Cancer, CVA, ARF, Chemo, Hep., AIDS, mental health diagnosis, sleep apnea, morbid obesity)? @ -None Was patient admitted / discharged? Hospital course, mention meds given and route, prescriptions, significant lab abnormalities, going to OR and other pertinent info. @ -Patient will be admitted to Dr. Almazan and will have a psych consult Undiagnosed new problem with uncertain prognosis? @ -No Drug Therapy requiring intensive monitoring for toxicity (Heparin, Nitro, Insulin, Cardizem)? @ -No Were any procedures done? @ -No Diagnosis/symptom? @ -Alcohol intoxication Acute, or Chronic, or Acute on Chronic? @ -Acute Uncomplicated (without systemic symptoms) or Complicated (systemic symptoms)? @ -Complicated Side effects of treatment? @ -No Exacerbation, Progression, or Severe Exacerbation? @ -No Poses a threat to life or bodily function? How? (Chest pain, USA, IA, pneumonia, PE, COPD, DKA, ARF, appy, cholecystitis, CVA, Diverticulitis, Homicidal, Suicidal, threat to staff... and all critical care pts) @ -Yes patient can go through withdrawal and it can cause Diagnosis/symptom? @ -Depression, suicidal ideations Acute, or Chronic, or Acute on Chronic? @ -Acute Uncomplicated (without systemic symptoms) or Complicated (systemic symptoms)? @ -Complicated Side effects of treatment? @ -None Exacerbation, Progression, or Severe Exacerbation] @ -No Poses a threat to life or bodily function? @ -Yes this can lead to the patient attempting suicide and dying - Lab Data Result diagrams: 02/16/25 14:32 02/16/25 14:32 Lab Results 02/16/25 02/16/25 02/16/25 Range/Units 14:32 14:32 15:00 WBC 8.86 (4.50-10.00) 10*3/uL RBC 4.55 (4.40-5.60) 10*6/uL Hgb 13.7 (13.0-17.0) g/dL Hct 38.9 L (39.6-50.0) % MCV 85.5 (80.0-97.0) fL MCH 30.1 (27.0-32.0) pg MCHC 35.2 (32.0-37.0) g/dL Plt Count 215 (140-440) 10*3/uL MPV 8.8 L (9.5-12.2) fL Immature Gran % (Auto) 0.2 % Neutrophils % 69.6 % Lymphocytes % 23.9 % Monocytes % 5.5 % Eosinophils % 0.3 % Basophils % 0.5 % Immature Gran # 0.02 (0.00-0.04) 10*3/uL Neutrophils # 6.16 (1.80-7.70) 10*3/uL Lymphocytes # 2.12 (0.90-5.00) 10*3/uL Monocytes # 0.49 (0.20-1.00) 10*3/uL Eosinophils # 0.03 L (0.04-0.35) 10*3/uL Basophils # 0.04 (0.00-0.10) 10*3/uL Sodium 144 (137-145) mmol/L Potassium 4.0 (3.5-5.1) mmol/L Chloride 102 (98-107) mmol/L Carbon Dioxide 26 (22-30) mmol/L Anion Gap 16 mmol/L BUN 10 (9-20) mg/dL Creatinine 0.83 (0.66-1.25) mg/dL Est GFR (CKD-EPI)AfAm >90 (>60 ml/min/1.73 sqM) Est GFR (CKD-EPI)NonAf >90 (>60 ml/min/1.73 sqM) Glucose 81 (74-99) mg/dL Calcium 9.3 (8.4-10.2) mg/dL Magnesium 1.8 (1.6-2.3) mg/dL Total Bilirubin 0.9 (0.2-1.3) mg/dL AST 69 H (17-59) U/L ALT 49 (4-49) U/L Alkaline Phosphatase 127 H (38-126) U/L Total Protein 6.9 (6.3-8.2) g/dL Albumin 4.5 (3.5-5.0) g/dL Urine Opiates Screen Not Detected (NotDetected) Ur Oxycodone Screen Not Detected (NotDetected) Urine Methadone Screen Not Detected (NotDetected) Ur Barbiturates Screen Not Detected (NotDetected) U Tricyclic Antidepress Not Detected (NotDetected) Ur Phencyclidine Scrn Not Detected (NotDetected) Ur Amphetamines Screen Not Detected (NotDetected) U Methamphetamines Scrn Not Detected (NotDetected) U Benzodiazepines Scrn Not Detected (NotDetected) Urine Cocaine Screen Not Detected (NotDetected) U Marijuana (THC) Screen Not Detected (NotDetected) Serum Alcohol 289 H* mg/dL Disposition Clinical Impression: Suicidal ideation, Depression, Alcohol intoxication Disposition: ADMITTED IP TO THIS HOSP Referrals: Annia Dong MD [Primary Care Provider] - 1-2 days Time of Disposition: 16:25
[2025-02-16 14:37] LABS: Basophils # (A) 0.04 10*3/uL (0.00-0.10); Basophils % (A) 0.5 %; Eosinophils # (A) 0.03 10*3/uL (0.04-0.35); Eosinophils % (A) 0.3 %; HCT 38.9 % (39.6-50.0); HGB 13.7 g/dL (13.0-17.0); Lymphocytes # (A) 2.12 10*3/uL (0.90-5.00); Lymphocytes % (A) 23.9 %; MCH 30.1 pg (27.0-32.0); MCHC 35.2 g/dL (32.0-37.0); MCV 85.5 fL (80.0-97.0); Monocytes # (A) 0.49 10*3/uL (0.20-1.00); Monocytes % (A) 5.5 %; Neutrophils # (A) 6.16 10*3/uL (1.80-7.70); Neutrophils % (A) 69.6 %; Platelet Count 215 10*3/uL (140-440); RBC 4.55 10*6/uL (4.40-5.60); RDW 12.7 % (11.5-14.5); WBC 8.86 10*3/uL (4.50-10.00)
[2025-02-16 15:06] LABS: ALT 49 U/L (4-49); AST 69 U/L (17-59); African American GFR (CKD) >90 (>60 ml/min/1.73 sqM); Albumin 4.5 g/dL (3.5-5.0); Alkaline Phosphatase 127 U/L (38-126); Anion Gap 16 mmol/L; Blood Urea Nitrogen 10 mg/dL (9-20); Calcium 9.3 mg/dL (8.4-10.2); Carbon Dioxide 26 mmol/L (22-30); Chloride 102 mmol/L (98-107); Glucose 81 mg/dL (74-99); Magnesium 1.8 mg/dL (1.6-2.3); Non-African American GFR(CKD) >90 (>60 ml/min/1.73 sqM); Potassium 4.0 mmol/L (3.5-5.1); Sodium 144 mmol/L (137-145); Total Protein 6.9 g/dL (6.3-8.2)
[2025-02-16 15:34] LABS: Barbiturate Screen,Urine Not Detected (NotDetected); Benzodiazepines Screen,Urine Not Detected (NotDetected); Opiate Screen,Urine Not Detected (NotDetected); Oxycodone Screen, Urine Not Detected (NotDetected); Phencyclidine Screen,Urine Not Detected (NotDetected); Tricyclic Antidepressant,Urine Not Detected (NotDetected); Urn Cannabinoid Scrn Not Detected (NotDetected)
[2025-02-16] MEDS ORDERED: LORazepam 1 MG/0.5 ML VIAL IV PRN (16:29)
[2025-02-16] MEDS: SODIUM CHLORIDE 0.9% 1,000 ML IV ONE (16:57)
[2025-02-16] MEDS: THIAMINE 100 MG/ML 2 ML VIAL IM STA (17:00)
[2025-02-16] MEDS: LORazepam 0.5 MG TAB PO PRN (17:08)
[2025-02-16] MEDS: LORazepam 1 MG/0.5 ML VIAL IV PRN (22:04)
[2025-02-17] MEDS: LORazepam 1 MG TAB PO PRN (05:43)
[2025-02-17] MEDS: THIAMINE 100 MG TAB PO SCH (09:09)
--- NOTE | 2025-02-17 11:11 | XR ---
EXAMINATION TYPE: XR chest 1V portable DATE OF EXAM: 02/17/2025 10:58 AM COMPARISON: Chest radiographs from 12/16/2024. CLINICAL INDICATION: Male, 39 years old with history of CHEST PAIN; [facility] TECHNIQUE: XR chest 1V portable Frontal view of the chest. FINDINGS: Lungs/Pleura: There is no evidence of pleural effusion, focal consolidation, or pneumothorax. Pulmonary vascularity: Unremarkable. Heart/mediastinum: Cardiomediastinal silhouette is unremarkable. Musculoskeletal: No acute osseous pathology. IMPRESSION: No acute cardiopulmonary disease/process. [facility], , 02/17/2025 11:09 AM
[2025-02-17] MEDS: LORazepam 1 MG/0.5 ML VIAL IV PRN (12:15)
--- NOTE | 2025-02-17 13:24 | P.CN ---
Psychiatric Consult - . Consult date: 02/17/25 Consult:: 02/17/25 12:27 IDENTIFYING DATA: Patient is a 39 yo male, he is currently homeless he has no kids he is unemployed single. reason for consultation: depression and SI HPI: Patient presented to the hospital yesterday on 02/16 to the ER. Patient presented having increased depression abusing more alcohol and having suicidal thoughts. Patient was negative and his urine drug screen his blood alcohol level was 289 on admission. He was admitted medically for alcohol withdrawal. Patient had a one-to-one sitter at this time. He claims that he has struggled being homeless, claims that he stopped taking his medications about a month ago. Claims that he went to rehab for 1 month and was recently released and claims that he relapsed shortly after. He claims that he is drinking alcohol about 2-3 bottles of wine a day. Claims that he has been feeling more depressed anxious and hopeless daily. States that he is having minor withdrawal symptoms at this time including shaking nausea and some diarrhea and also endorsing headaches. Denies any history of delirium tremens. Claims that his sleep and appetite are poor. Claims that he is still having suicidal thoughts, no specific plan.. Patient denies any homicidal ideations intent or plan. At this time patient denies any auditory or visual hallucinations.Patient admits to using alcohol as noted above, claims that his last drink was before coming into the hospital. Denies any other recreational drug use PAST PSYCHIATRIC HISTORY: Patient has a history of depression, anxiety, alcohol use. Patient claims that he was previously on medications including Lexapro and Trileptal, Zoloft and trazodone however has been off medications for around a month. Patient states that his last psychiatric hospitalization was at the mental health unit and January 2025. Patient was last seen at [facility] for outpatient psychiatric follow-up by Dr. Wan in 2022. Patient denies any history of suicide attempts in the past. PMH: as per ER note ALLERGIES: as per EMR CHEMICAL DEPENDENCY HISTORY: as per HPI FAMILY PSYCHIATRIC/SUBSTANCE USE HISTORY: Denies SOCIAL HISTORY: Patient was born and raised in [place] and then moved to [place]. Claims that he completed high school did his bachelor's degree. 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 Currently unemployed he is single he has no kids. He is currently homeless. 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 MENTAL STATUS EXAM: General Appearance: Patient appears to be thin, disheveled hair, has a salcedo, wearing glasses, stated age is alert, directable, and attempts to cooperate. Patient appears to have poor hygiene and grooming. Behavior: Patient is seated without any agitated behavior. Attempts to cooperate Speech: Patient's speech is fluent and nonpressured. Fairly concrete Mood/Affect: Patient reports their mood is depressed and anxious, affect is congruent and constricted. Suicidality/Homicidality: Patient denies having any homicidal ideation intent or plan. Endorsing suicidal thoughts no specific plan. Perceptions: Patient denies any visual hallucinations and denies any auditory hallucinations Though content/process: There is no evidence of any delusional thought content and thought process is linear and goal-directed. Fairly concrete, poverty of content Memory and concentration: AOX3, grossly intact for the purposes of this session. Can spell "WORLD" backwards Judgment and insight: Poor IMPRESSIONS: Major depressive disorder, without psychotic features Generalized anxiety disorder Alcohol use disorder, severe dependence, currently in withdrawal Homelessness PLAN: -At this time patient DOES meet criteria for inpatient psychiatric admission. -Would recommend the following medication changes/additions: Will restart Zoloft 25 mg nightly for mood/anxiety, trazodone 50 mg nightly for insomnia/mood. -CIWA protocol with PRN Ativan for alcohol withdrawal. Continue to monitor vital signs. Will also start patient on scheduled Librium and continue to taper for alcohol withdrawal. -Continue 1:1 sitter for safety until patient is safely transferred to the mental health unit -Cannot leave AMA at this time. Patient will need a petition and certification if attempting to leave AMA. -When medically stable, patient is eligible for transfer to a psych bed when available. -Communicated plan to patient's nurse -Psychiatry will sign off at this time -Please contact with any questions. 02/17/25 12:28 02/17/25 13:19
--- NOTE | 2025-02-17 14:46 | P.HPIM ---
History of Present Illness Chief Complaint: Suicidal ideation, intoxication, pain History of present illness; 39-year-old male with history of alcohol use di sorder presents to the ER with concerns of suicidal ideation with feelings of hopelessness desires to kill himself. Patient denies previous attempts, does not have a plan currently. Patient has pain globally denies shortness of breath and chest pain. Patient has abdominal pain and nausea without vomiting or diarrhea. Patient states his last drink was yesterday, he usually drinks 2-3 bottles of wine per day or a fifth of liquor per day. Yesterday he drank 2 bottles of wine, he is not experiencing withdrawal symptoms currently. He has not experienced withdrawal symptoms in the past. He does not have plans of quitting at this time In the ER blood alcohol and urine tox were collected. Blood alcohol was elevated at 289, urine tox was negative for other substances. Labs in ER: WBC 8.8 Hgb 13.7 HCV 85.5 Plt 215 NA 144 K4.0 BUN 10 CR 0.83 Patient was admitted to medical team for management of alcohol use disorder, withdrawal symptoms, body pains with consults to psychiatry. CIWA protocol initiated received 2 mg of Ativan in the last 24-hour REVIEW OF SYSTEMS: As stated above in HPI. The rest of the 14-point review of systems is negative. PHYSICAL EXAMINATION: GENERAL: The patient is alert and oriented x3, not in any acute distress. Well developed, well nourished. HEENT: Pupils are round and equally reacting to light. EOMI. No scleral icterus. No conjunctival pallor. Normocephalic, atraumatic. CARDIOVASCULAR: S1 and S2 present. No murmurs, rubs, or gallops. PULMONARY: Chest is clear to auscultation b/l, no wheezing or crackles. ABDOMEN: Soft, nontender, nondistended, normoactive bowel sounds. No palpable organomegaly. MUSCULOSKELETAL: No joint swelling or deformity. EXTREMITIES: No cyanosis, clubbing, or pedal edema. NEUROLOGICAL: Gross neurological examination did not reveal any focal deficits. SKIN: No rashes. Assessment and Plan 39-year-old male with past medical history of alcohol use disorder (drinks 2-3 bottles of wine or 8 fifth of liquor per day) presenting with suicidal ideation and alcohol intoxication with whole body pains and no other symptoms. Cardiac workup returned negative. Last drink was yesterday, urine tox is negative for other substances. CBC shows normal mean cellular volume therefore low suspicion for chronic heavy alcohol use. #Alcohol use disorder #Alcohol withdrawal #Intoxication (serum alcohol 289) #Suicidal ideation Consult to psychiatry for evaluation of suicidal ideation CIWA protocol, difficult to evaluate subjective symptoms. Hold Ativan for CIWA less than 10 Monitor for objective signs of withdrawal DVT ppx: Early ambulation GI ppx: Pepcid as needed CODE STATUS: Full Dispo: Monitoring withdrawal symptoms, pending psychiatric evaluation Past Medical History Past Medical History: No Reported History Additional Past Medical History / Comment(s): sober etoh 18 months 08/26- started drinking again 12/25 History of Any Multi-Drug Resistant Organisms: None Reported Past Surgical History: No Surgical Hx Reported Additional Past Surgical History / Comment(s): left ring finger and hand surgery from [facility] 2024 Past Anesthesia/Blood Transfusion Reactions: No Reported Reaction Smoking Status: Former smoker - Past Family History Father Family Medical History: Liver Disease Medications and Allergies Home Medications Medication Instructions Recorded Confirmed Type No Known Home Medications 02/16/25 02/16/25 History Allergies Allergy/AdvReac Type Severity Reaction Status Date / Time No Known Allergies Allergy Verified 02/16/25 14:14 Physical Exam Vitals: Vital Signs Temp Pulse Pulse Resp BP BP Pulse Ox 02/17/25 07:30 98.6 F 94 17 145/79 99 02/17/25 01:43 98.8 F 97 18 132/81 98 02/16/25 19:20 98.8 F 105 H 17 129/79 94 L 02/16/25 17:04 97.9 F 118 H 18 135/79 96 02/16/25 13:33 98.1 F 75 20 133/89 98 Intake and Output 02/16/25 02/17/25 02/17/25 22:59 06:59 14:59 Other: Voiding Method Toilet Toilet # Voids 3 Weight 70.307 kg Results CBC & Chem 7: 02/16/25 14:32 02/16/25 14:32 Labs: Abnormal Lab Results - Last 24 Hours (Table) 02/16/25 02/16/25 Range/Units 14:32 14:32 Hct 38.9 L (39.6-50.0) % MPV 8.8 L (9.5-12.2) fL Eosinophils # 0.03 L (0.04-0.35) 10*3/uL AST 69 H (17-59) U/L Alkaline Phosphatase 127 H (38-126) U/L Serum Alcohol 289 H* mg/dL Thrombosis Risk Factor Assmnt - Choose All That Apply Any of the Below Risk Factors Present?: Yes Each Factor Represents 1 point: Age 41-60 years Thrombosis Risk Factor Assessment Total Risk Factor Score: 1 Thrombosis Risk Factor Assessment Level: Low Risk
[2025-02-17] MEDS: chlordiazePOXIDE 25 MG CAP PO SCH (15:09)
[2025-02-17] MEDS: SERTRALINE 25 MG TAB PO SCH (21:24)
[2025-02-18 08:54] LABS: Basophils # (A) 0.03 X 10*3/uL (0.00-0.10); Basophils % (A) 0.4 %; Eosinophils # (A) 0.20 X 10*3/uL (0.04-0.35); Eosinophils % (A) 2.7 %; HCT 41.4 % (39.6-50.0); HGB 13.7 g/dL (13.0-17.0); Immature Grans, Automated 0.10 %; Lymphocytes # (A) 1.92 X 10*3/uL (0.90-5.00); Lymphocytes % (A) 25.7 %; MCH 28.8 pg (27.0-32.0); MCHC 33.1 g/dL (32.0-37.0); MCV 87.0 FL (80.0-97.0); Monocytes # (A) 0.49 X 10*3/uL (0.20-1.00); Monocytes % (A) 6.6 %; NRBC Per 100 WBC 0 X 10*3/uL (0.00-0.01); Neutrophils # (A) 4.81 X 10*3/uL (1.80-7.70); Neutrophils % (A) 64.5 %; Platelet Count 180 X 10*3/uL (140-440); RBC 4.76 X 10*6/uL (4.40-5.60); RDW 12.6 % (11.5-14.5); WBC 7.46 X 10*3/uL (4.50-10.00)
[2025-02-18 09:01] LABS: Anion Gap 13.30 mmol/L (4.00-12.00); BUN/Creat Ratio 11.50 Ratio (12.00-20.00); Blood Urea Nitrogen 9.2 mg/dL (9.0-27.0); Calcium 9.2 mg/dL (8.7-10.3); Carbon Dioxide 21.7 mmol/L (21.6-31.8); Chloride 101 mmol/L (96-109); Glucose 87 mg/dL (70-110); Potassium 3.4 mmol/L (3.5-5.5); Sodium 136 mmol/L (135-145)
[2025-02-18] MEDS: POTASSIUM CHLORIDE ER 20 MEQ TAB.ER PO STA (10:43)
--- NOTE | 2025-02-18 14:03 | P.DS ---
Providers Date of admission: 02/16/25 16:30 Attending physician: Maria Fernanda Almazan Consults: 02/16/25 16:25 Consult Physician Urgent Consulting Provider: Trey Steiner Consult Reason/Comments: Depression, suicidal ideations Do you want consulting provider notified?: Yes Primary care physician: Annia Dong Hospital Course: Discharge Diagnosis: Alcohol detoxification Suicidal ideation Hospital Course: History of present illness; 39-year-old male with history of alcohol use disorder presents to the ER with concerns of suicidal ideation with feelings of hopelessness desires to kill himself. Patient denies previous attempts, does not have a plan currently. Patient has pain globally denies shortness of breath and chest pain. Patient has abdominal pain and nausea without vomiting or diarrhea. Patient states his last drink was yesterday, he usually drinks 2-3 bottles of wine per day or a fifth of liquor per day. Yesterday he drank 2 bottles of wine, he is not experiencing withdrawal symptoms currently. He has not experienced withdrawal symptoms in the past. He does not have plans of quitting at this time. In the ER blood alcohol and urine tox were collected. Blood alcohol was elevated at 289, urine tox was negative for other substances. Patient was admitted to medical team for management of alcohol use disorder, withdrawal symptoms, body pains with consults to psychiatry. CIWA protocol initiated received 2 mg of Ativan in the last 24-hour. During the course of this hospital stay, patient was evaluated by both inpatient psychiatry and general medicine teams. Patient was placed on CIWA protocol, CIWA downtrended to be an average of 6 only required 2 mg of Ativan over 24 hours. Psychiatry determined that the patient meets criteria for inpatient psychiatric admission. He was started on Zoloft 25mg anxiety management and trazodone 50mg nightly to address insomnia. In addition the patient also started on a tapering dose of Librium as part of alcohol detoxification treatment. For safety A 1:1 sitter was initiated and remained in place until the patient's transfer to mental health unit. Due to the patient's mental status and clinical condition, it was determined that he lacks capacity to leave AGAINST MEDICAL ADVICE. If he expresses a desire to leave [facility], a petition and certification process will be required. Currently, patient is hemodynamically stable and w ill be transferred to the inpatient psychiatric unit for continued care. At time of discharge, patient advised to follow-up with PCP. Patient seen and examined at bedside. 02/18/2025 Vital signs reviewed and stable. General Appearance: Patient appears to be thin, disheveled hair, has a salcedo, wearing glasses, stated age is alert, directable, and attempts to cooperate. Patient appears to have poor hygiene and grooming. HEENT: Pupils are round and equally reacting to light. EOMI. No scleral icterus. No conjunctival pallor. Normocephalic, atraumatic. CARDIOVASCULAR: S1 and S2 present. No murmurs, rubs, or gallops. PULMONARY: Chest is clear to auscultation b/l, no wheezing or crackles. ABDOMEN: Soft, nontender, nondistended, normoactive bowel sounds. No palpable organomegaly. MUSCULOSKELETAL: No joint swelling or deformity. EXTREMITIES: No cyanosis, clubbing, or pedal edema. NEUROLOGICAL: Gross neurological examination did not reveal any focal deficits. SKIN: No rashes. Memory and concentration: AOX3, grossly intact for the purposes of this session. Can spell "WORLD" backwards Judgment and insight: Poor A total of greater than 30 minutes of time were spent preparing this complex discharge summary. Patient was discharged on 02/18/2025. Plan - Discharge Summary Discharge Rx Participant: No New Discharge Prescriptions: No Action No Known Home Medications Discharge Medication List No Known Home Medications 02/16/25 [History] Follow up Appointment(s)/Referral(s): Annia Dong MD [Primary Care Provider] - 1-2 days Discharge/Stand Alone Forms: [facility], Outpatient Counseling, In Substance Abuse Facilities
[2025-02-18 20:03] VITALS: BP 128/81; PULSE 90; RESP 16; TEMP 98.1
== END 2025-02-18 20:15 ==
LOC: EC 13:25 → 4SSUR 16:30
PROVIDERS: ADMIT Hospitalist; ATTEND Hospitalist
DX: F10.229 Alcohol dependence with intoxication, unspecified (principal); F10.239 Alcohol dependence with withdrawal, unspecified; F32.9 Major depressive disorder, single episode, unspecified; F41.1 Generalized anxiety disorder; R45.851 Suicidal ideations; Y90.8 Blood alcohol level of 240 mg/100 ml or more; G47.00 Insomnia, unspecified; Z59.00 Homelessness unspecified; Z56.0 Unemployment, unspecified; Z74.3 Need for continuous supervision; Z87.891 Personal history of nicotine dependence
CPT/HCPCS: 96376; 96374; 82075; 96361; 96372; 99285; 36415; 80053; 80048; 83735; 84484; 85025 ×2; 80306; 87635; 71045; G0378 ×3; G0480; J2060 ×2; J3411; 80320

== ENCOUNTER 2025-02-18 19:01 | Inpatient (IN) | payer MEDICAID, OTHER ==
[2025-02-18] MEDS ORDERED: MAGNESIUM HYDROXIDE 2,400 MG/30 ML CUP PO PRN (19:09)
[2025-02-18] MEDS ORDERED: IBUPROFEN 600 MG TAB PO PRN (19:09)
[2025-02-18] MEDS ORDERED: ACETAMINOPHEN TAB 325 MG TAB PO PRN (19:09)
[2025-02-18] MEDS ORDERED: HALOPERIDOL LACTATE 5 MG/ML 1 ML VIAL IM PRN (19:09)
[2025-02-18] MEDS ORDERED: LORazepam 1 MG TAB PO PRN ×3 (19:09)
[2025-02-18] MEDS ORDERED: MAG HYDROX/AL HYDROX/SIMETH 355 ML BOTTLE PO PRN (19:09)
[2025-02-18] MEDS: chlordiazePOXIDE 25 MG CAP PO SCH (20:46)
[2025-02-18] MEDS: SERTRALINE 25 MG TAB PO SCH (20:46)
[2025-02-19 08:26] LABS: ALT 40 U/L (4-49); AST 37 U/L (17-59); African American GFR (CKD) >90 (>60 ml/min/1.73 sqM); Albumin 4.1 g/dL (3.5-5.0); Alkaline Phosphatase 104 U/L (38-126); Anion Gap 9 mmol/L; Blood Urea Nitrogen 13 mg/dL (9-20); Calcium 9.6 mg/dL (8.4-10.2); Carbon Dioxide 23 mmol/L (22-30); Chloride 109 mmol/L (98-107); Glucose 89 mg/dL (74-99); Non-African American GFR(CKD) >90 (>60 ml/min/1.73 sqM); Potassium 3.8 mmol/L (3.5-5.1); Sodium 141 mmol/L (137-145); Total Protein 6.6 g/dL (6.3-8.2)
--- NOTE | 2025-02-19 09:58 | P.HP ---
Psychiatric H&P - . H&P Date: 02/19/25 History & Physical: Allergies Allergy/AdvReac Type Severity Reaction Status Date / Time No Known Allergies Allergy Verified 02/16/25 14:14 Vital Signs Temp 97.5 F L 02/18/25 21:00 Pulse 126 H 02/18/25 21:00 Resp 20 02/18/25 21:00 BP 142/97 02/18/25 21:00 Pulse Ox 99 02/18/25 21:00 FiO2 Intake & Output 02/18/25 02/19/25 02/19/25 18:59 06:59 18:59 Weight 79.464 kg Dictation was produced using [employer] dictation software. Please excuse any grammatical, word or spelling errors. IDENTIFYING DATA: Patient is a 39 years old homeless male with past psychiatric history of depression, anxiety, and alcohol use disorder presented to the hospital initially for suicidal ideation and depression in context of medication noncompliance. HPI: Patient presented to the hospital initially on 02/16 for increased depression and suicidal thoughts, he does reported that he has been abusing more alcohol. His blood alcohol level on admission was 289, patient was admitted to the medical floor for alcohol withdrawal. Psychiatry was consulted and recommended patient to be admitted to the psychiatric unit once medically cleared. Per chart review the patient reported that he has not been compliant with his medications for about a month, reported that he went to rehab for about a month and was recently released however relapsed afterward. Claims that he drinks 23 bottles of wine daily, reported more depression and anxiety. Mild withdrawal symptoms including shaking, nausea, diarrhea and headache. Upon evaluation in the unit today, the patient was in his room, laying in bed, agreed to speak with the appeals writer in the office. He states that he was having suicidal thoughts and was drinking a lot and wanted to get some help. States that before he came in he had the suicidal thoughts for 5 days. States that suicidal thoughts are still there however less intense, he denied any intention or plan. States that he has been feeling down, sad, depressed, hopeless, worthless, and helpless for about a month, states that he had the same depressive episodes in the past few months ago, and a year prior to that. He rated depression at 7/10. Denied any current homicidal thoughts, states that suicidal thoughts are less intense but is still there. He denied any previous history of suicide. Sleep is not that great, reported 5 hours of sleep on average, waking up during the night. Appetite is good. Admitted to feeling anxious about his future, family, and being homeless. At this time patient denies any auditory or visual hallucinations. Patient denies any flight of ideas racing thoughts and increased in goal directed behavior. Patient admits to using alcohol, states that he started drinking when he was 16 yo, last drink was on , 2 bottles of wine, reported that his average is 1/5 per day. He was in rehab in the past, last was in January, claims that he completed the program. Reported that he attended rehab at least 10 times in the past. Denied any current withdrawal symptoms. Reported history of nausea, headache, trouble sleeping, shaking in the past. Denied any history of withdrawal seizures or DTs. Denied using tobacco or cannabis, or any other illicit substances. PAST PSYCHIATRIC HISTORY: - Inpatient Hospitalizations: The patient was recently hospitalized at [facility] on 01/02-01/25. Reported 4 previous hospitalizations - Outpatient Care: [facility] - Current Psychotropics: Zoloft 25 mg p.o. at bedtime, trazodone 50 mg p.o. at bedtime - Prior Psychotropics/Therapy: Lexapro, Trileptal, Zoloft, trazodone, Wellbutrin - Prior Psychiatric dx: depression - Suicidal Attempts: Denies - Trauma History: denies PMH: as per ER note Past Medical History: No Reported History Additional Past Medical History / Comment(s): sober etoh 18 months 08/26- started drinking again 12/25 History of Any Multi-Drug Resistant Organisms: None Reported Past Surgical History: No Surgical Hx Reported Additional Past Surgical History / Comment(s): left ring finger and hand surgery from a break 2024 Past Anesthesia/Blood Transfusion Reactions: No Reported Reaction Past Psychological History: Anxiety, Depression Past Alcohol Use History: Daily, Heavy ALLERGIES: as per EMR CHEMICAL DEPENDENCY HISTORY: as per HPI FAMILY PSYCHIATRIC/SUBSTANCE USE HISTORY: denies SOCIAL HISTORY: Patient was born in [place], and raised in [place], currently unemployed, homeless, claims that he used to work for [employer] and had different jobs in the past "what ever I can get my hands on". He is single, never , has no kids. Claims that he completed high school and has a bachelor degree. 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 Patient was wearing a hospital gown, appears to have poor hygiene and grooming. Behavior: Patient is seated without any agitated behavior. Speech: Patient's speech is fluent and nonpressured. Mood/Affect: Patient reports their mood is " a little down", affect is congruent and constricted. Suicidality/Homicidality: Patient denies having any homicidal ideation intent or plan. Reported fleeting suicidal thoughts however denied any intention or plan Perceptions: Patient denies any visual hallucinations and denies any auditory hallucinations Though content/process: There is no evidence of any delusional thought content and thought process is linear and goal-directed. Memory and concentration: AOX3, grossly intact for the purposes of this session. Judgment and insight: poor STRENGTHS/WEAKNESSES: strength is that patient is resilient, willing to get some help, willing to go back to rehab. Weakness is that patient has poor judgment and is impulsive INTELLECT: average IMPRESSIONS: -Major depressive disorder, recurrent, moderate -Generalized anxiety disorder -Alcohol use disorder, severe PLAN: -Patient is admitted under voluntary status to MHU for stabilization of psychiatric symptoms and safety. Patient has signed adult voluntary form and medication consent and is placed in patient's chart. -Medications : -Continue Zoloft 25 mg p.o. at bedtime (may consider increasing the dose over the next few days pending the patient progress and toleration) -Continue trazodone 50 mg p.o. at bedtime -Ativan and Haldol PRN for agitation/aggression -Started thiamine, MVM for etoh use -CIWA protocol with Ativan PRN for ETOH withdrawal, scheduled Librium for alcohol withdrawal with plan to taper. -Patient was counselled on substance abuse and desired to cut back on use -Will offer patient subtance use rehab, patient is in agreement to attend rehab following this hospitalization -Patient was informed of the risks, benefits and side effects of the medication and patient verbally consented to taking the medications. Patient signed med consent form and was placed in chart. -Internal Medicine consult to perform medical evaluation and physical. -NRT - not needed as patient does not smoke -SW on board for discharge planning. Encourage patient to participate in groups to work on coping skills. 02/19/25 07:41 02/19/25 09:29
[2025-02-19] MEDS: MULTIVITAMINS, THERA 1 EACH TAB PO SCH (10:07)
[2025-02-19] MEDS: FOLIC ACID 1 MG TAB PO SCH (10:07)
[2025-02-19] MEDS: THIAMINE 100 MG TAB PO SCH (10:07)
[2025-02-19] MEDS: NICOTINE 14MG/24HR PATCH TRANSDERM SCH (10:09)
--- NOTE | 2025-02-19 12:45 | P.MDCNMH ---
History of Present Illness H&P Date: 02/19/25 This is a pleasant 39-year-old male who was just discharged from the medical floor for EtOH abuse with acute alcohol withdrawal and was sent to [facility] for further psychiatric evaluation for anxiety and depression along with suicidal ideation. Patient follows with Dr. Reggie Almazan in the outpatient setting with a past medical history of previous alcohol abuse and had been sober although relapsed and has been drinking daily heavily along with anxiety/depression and abuse of prescription medications. Patient was cleared by medical for transfer to [facility] as patient was evaluated by psychiatry during hospitalization maintained on CIWA protocol and also a Librium taper. Patient will continue CIWA protocol and monitoring for any further withdrawals. On exam patient is awake, alert and oriented x 3, reports his withdrawal symptoms have improved and is tolerating diet with no reports of nausea or vomiting. Patient does have occasional loose stools but he reports is improving. Patient denies chest pain or shortness of breath on exam and reports has met with psychiatrist on [facility] REVIEW OF SYSTEMS: CONSTITUTIONAL: No fever, no malaise, no fatigue. HEENT: No recent visual problems or hearing problems. Denied any sore throat. CARDIOVASCULAR: No chest pain, orthopnea, PND, no palpitations, no syncope. PULMONARY: No shortness of breath, no cough, no hemoptysis. GASTROINTESTINAL: Reports intermittent episodes of loose stool, no nausea, no vomiting, no abdominal pain. NEUROLOGICAL: No headaches, no weakness, no numbness. HEMATOLOGICAL: Denies any bleeding or petechiae. GENITOURINARY: Denies any burning micturition, frequency, or urgency. MUSCULOSKELETAL/RHEUMATOLOGICAL: Denies any joint pain, swelling, or any muscle pain. ENDOCRINE: Denies any polyuria or polydipsia. The rest of the 14-point review of systems is negative. PHYSICAL EXAMINATION: GENERAL: The patient is alert and oriented x3, not in any acute distress. Well developed, well nourished. HEENT: Pupils are round and equally reacting to light. EOMI. No scleral icterus. No conjunctival pallor. Normocephalic, atraumatic. No pharyngeal erythema. No thyromegaly. CARDIOVASCULAR: S1 and S2 muffled PULMONARY: Chest is clear to auscultation, no wheezing or crackles. ABDOMEN: Soft, thin, nontender, nondistended, normoactive bowel sounds. No palpable organomegaly. MUSCULOSKELETAL: No joint swelling or deformity. EXTREMITIES: No cyanosis, clubbing, or pedal edema. NEUROLOGICAL: Gross neurological examination did not reveal any focal deficits. SKIN: No rashes. Assessment: Anxiety/depression with suicidal ideation Acute alcohol intoxication with acute alcohol withdrawal, maintained on CIWA protocol History of previous prescription drug abuse History of anxiety and depression GI prophylaxis Full code Plan: Patient was just discharged from medicine side and transferred over to 3 . as patient was evaluated by psychiatry meeting inpatient criteria for further psychiatric evaluation and medications Patient is medically stable on exam this morning showing no active signs of withdrawal although reporting is having some occasional loose stools. Patient is tolerating diet and denies any nausea or vomiting Encouraged frequent walking and increased activity as tolerated with sleeping at night and remaining awake and active during the day Encouraged group therapy sessions and compliance with medications and psychiatry evaluation Patient to follow-up with community mental health outpatient as well as primary care provider once discharged from 3 . Thank you kindly for this consultation. Please do not hesitate to contact us with any questions or concerns The impression and plan of care has been dictated by Nilam Drake, Nurse Practitioner as directed. Dr. Leslie MD I have performed a history and examination and MDM of this patient, discussed the same with the dictator, and agree with the dictator's assessment and plan as written ,documented as a scribe. Based on total visit time, I have performed more than 50% of the visit. Past Medical History Past Medical History: No Reported History Additional Past Medical History / Comment(s): sober etoh 18 months 08/26- started drinking again 12/25 History of Any Multi-Drug Resistant Organisms: None Reported Past Surgical History: Orthopedic Surgery Additional Past Surgical History / Comment(s): left ring finger and hand surgery from a break 2024 Past Anesthesia/Blood Transfusion Reactions: No Reported Reaction Past Psychological History: Anxiety, Depression Smoking Status: Former smoker Past Alcohol Use History: Daily, Heavy Past Drug Use History: Prescription Drug Abuse - Past Family History Father Family Medical History: Liver Disease Medications and Allergies Home Medications Medication Instructions Recorded Confirmed Type No Known Home Medications 02/16/25 02/19/25 History Allergies Allergy/AdvReac Type Severity Reaction Status Date / Time No Known Allergies Allergy Verified 02/19/25 08:54 Physical Exam Vitals: Vital Signs Temp Pulse Resp BP Pulse Ox 02/18/25 21:00 97.5 F L 126 H 20 142/97 99 02/18/25 20:37 97.9 F 93 18 130/91 100 Intake and Output 02/18/25 02/19/25 02/19/25 22:59 06:59 14:59 Other: Weight 79.464 kg Cranial Nerve Examination - Cranial Nerves Cranial Nerve I- Olfactory: Intact Cranial Nerve II- Optic: Intact Cranial Nerve III- Oculomotor: Intact Cranial Nerve IV- Trochlear: Intact Cranial Nerve V- Trigeminal: Intact Cranial Nerve - Abducens: Intact Cranial Nerve VII- Facial: Intact Cranial Nerve VIII- Auditory: Intact Cranial Nerve IX- Glossopharyngeal: Intact Cranial Nerve X- Vagus: Intact Cranial Nerve XI- Accessory: Intact Cranial Nerve XII- Hypoglossal: Intact Results CBC & Chem 7: 02/19/25 07:52 Assessment and Plan Time with Patient: Less than 30
[2025-02-19 12:59] LABS: Bilirubin,Urine Negative (Negative); Blood,Urine Negative (Negative); Color,Urine Light Yellow; Glucose,Urine (UA) Negative (Negative); Ketones,Urine Negative (Negative); Leukocyte Esterase,Urine Negative (Negative); Nitrite,Urine Negative (Negative); PH, Urine 6.0 (5.0-8.0); Protein,Urine Negative (Negative); Specific Gravity,Urine 1.015 (1.001-1.035); Urobilinogen,Urine <2.0 mg/dL (<2.0)
[2025-02-19 13:11] LABS: Cholesterol 178.00 mg/dL (0.00-200.00); HDL Cholesterol 81.80 mg/dL (40.00-60.00); LDL Cholesterol,Calculated 82.6 mg/dL (0.0-131.0); Triglycerides 67.80 mg/dL (0.00-149.00); VLDL Calculation 13.56 mg/dL (5.00-40.00)
--- NOTE | 2025-02-20 12:10 | P.PN ---
Progress Note - Text Progress Note Date: 02/20/25 Interval History: Patient was seen today for psychiatric follow up. he states that he is still f eeling tired, endorsing depression and anxiety still. sytates that he is doing a bit better with regards to his withdrawal symptoms, claiming that he is not shaking any longer. States that he would be interested to call to get back into rehab at this time. He is currently homeless. States that he is sleeping poorly at nighttime, agreeable to try a higher dose of trazodone. Claims that he is eating his meals not reporting any side effects from medications. Denies any auditory or visual hallucinations. Denies any suicidal or homicidal ideations intent or plan MENTAL STATUS EXAM: General Appearance: Patient appears to be stated age is alert, directable, and attempts to cooperate. Patient was wearing a hospital gown, appears to have improving mildly hygiene and grooming. Behavior: Patient is seated without any agitated behavior. Attempts to cooperate Speech: Patient's speech is fluent and nonpressured. Mood/Affect: Patient reports their mood is " still depressed", affect is congru ent and constricted. Improving mildly Suicidality/Homicidality: Patient denies having any homicidal ideation intent or plan. Reported fleeting suicidal thoughts however denied any intention or plan Perceptions: Patient denies any visual hallucinations and denies any auditory hallucinations Though content/process: There is no evidence of any delusional thought content and thought process is linear and goal-directed. Memory and concentration: AOX3, grossly intact for the purposes of this session. Judgment and insight: poor, improving mildly IMPRESSIONS: -Major depressive disorder, recurrent, moderate -Generalized anxiety disorder -Alcohol use disorder, severe PLAN: -Patient is admitted under voluntary status to MHU for stabilization of psychiatric symptoms and safety. Patient has signed adult voluntary form and medication consent and is placed in patient's chart. -Medications : - Increase Zoloft 50 mg p.o. at bedtime - Increase trazodone 100 mg p.o. at bedtime -Ativan and Haldol PRN for agitation/aggression -thiamine, MVM for etoh use -CIWA protocol with Ativan PRN for ETOH withdrawal, continue tapering Librium for alcohol withdrawal -NRT - not needed as patient does not smoke -SW on board for discharge planning. Encourage patient to participate in groups to work on coping skills. Patient was given the screening number for rehab, will call today. Patient is currently homeless.
[2025-02-20] MEDS: SERTRALINE 50 MG TAB PO SCH (21:32)
--- NOTE | 2025-02-21 11:47 | P.PN ---
Progress Note - Text Progress Note Date: 02/21/25 Interval History: Patient was seen today for psychiatric follow up. Patient was laying in bed t michael agreeable to speak to sports book writer. Continues to be fairly concrete, fairly guarded. Claims that he is still feeling a bit depressed at this time. Not reporting any problems or side effects with his medications. Claims that he slept a bit better last night with a higher dose of trazodone. When asked about rehab he states that he tried to call yesterday however did not get through, was encouraged again to call today. He states that he is going to groups however has not been visible in any of them. Claims that the withdrawal symptoms have been improving. Claims that he is eating his meals. Denies any auditory or visual hallucinations. Denies any suicidal or homicidal ideations intent or plan MENTAL STATUS EXAM: General Appearance: Patient appears to be stated age is alert, directable, and attempts to cooperate. Patient was wearing a hospital gown, appears to have improving mildly hygiene and grooming. Behavior: Patient is seated without any agitated behavior. Attempts to cooperate Speech: Patient's speech is fluent and nonpressured. Fairly concrete Mood/Affect: Patient reports their mood is "a bit depressed", affect is congruent and constricted. Improving mildly Suicidality/Homicidality: Patient denies having any homicidal ideation intent or plan. Reported fleeting suicidal thoughts however denied any intention or plan Perceptions: Patient denies any visual hallucinations and denies any auditory hallucinations Though content/process: There is no evidence of any delusional thought content and thought process is linear and goal-directed. [place] Memory and concentration: AOX3, grossly intact for the purposes of this session. Judgment and insight: poor, improving mildly IMPRESSIONS: -Major depressive disorder, recurrent, moderate -Generalized anxiety disorder -Alcohol use disorder, severe PLAN: -Patient is admitted under voluntary status to MHU for stabilization of psychiatric symptoms and safety. Patient has signed adult voluntary form and medication consent and is placed in patient's chart. -Medications : - Increase Zoloft 75 mg p.o. at bedtime for mood/anxiety - trazodone 100 mg p.o. at bedtime for insomnia/mood -Ativan and Haldol PRN for agitation/aggression -thiamine, MVM for etoh use -CIWA protocol with Ativan PRN for ETOH withdrawal, continue tapering Librium for alcohol withdrawal -NRT - not needed as patient does not smoke -SW on board for discharge planning. Encourage patient to participate in groups to work on coping skills. Patient was given the screening number for rehab, will try again today. Patient is currently homeless. Likely discharge the patient is improving.
--- NOTE | 2025-02-22 11:16 | P.PN ---
Progress Note - Text Progress Note Date: 02/22/25 Interval History: Patient was seen today for psychiatric follow up. Patient was laying in bed t michael agreeable to speak to residential mortgage underwriter. Patient claims that he is doing a bit better today claims that his mood is mildly improving since yesterday denies any anxiety. Denies any withdrawal symptoms at this time. Claims that he did attempt to call the rehab screening earlier this morning however claims that they will need to call him back and gather more information. Continues to be fairly concrete, fairly guarded. He states that he is going to groups however has not been visible in any of them. Claims that he is eating his meals. Denies any auditory or visual hallucinations. Denies any suicidal or homicidal ideations intent or plan MENTAL STATUS EXAM: General Appearance: Patient appears to be stated age is alert, directable, and attempts to cooperate. Patient was wearing a hospital gown, appears to have improving mildly hygiene and grooming. Behavior: Patient is seated without any agitated behavior. Attempts to cooperate Speech: Patient's speech is fluent and nonpressured. Fairly concrete, improving mildly Mood/Affect: Patient reports their mood is "a bit better", affect is congruent and constricted. Improving mildly Suicidality/Homicidality: Patient denies having any homicidal ideation intent or plan. Denies any suicidal thoughts however denied any intention or plan Perceptions: Patient denies any visual hallucinations and denies any auditory hallucinations Though content/process: There is no evidence of any delusional thought content and thought process is linear and goal-directed. [place], improving mildly Memory and concentration: AOX3, grossly intact for the purposes of this session. Judgment and insight: poor, improving mildly IMPRESSIONS: -Major depressive disorder, recurrent, moderate -Generalized anxiety disorder -Alcohol use disorder, severe PLAN: -Patient is admitted under voluntary status to MHU for stabilization of psychiatric symptoms and safety. Patient has signed adult voluntary form and medication consent and is placed in patient's chart. -Medications : - Increase Zoloft 100 mg p.o. at bedtime for mood/anxiety - trazodone 100 mg p.o. at bedtime for insomnia/mood -Ativan and Haldol PRN for agitation/aggression -thiamine, MVM for etoh use -CIWA protocol with Ativan PRN for ETOH withdrawal, continue tapering Librium for alcohol withdrawal -NRT - not needed as patient does not smoke -SW on board for discharge planning. Encourage patient to participate in groups to work on coping skills. Patient was given the screening number for rehab, will try again today. Patient is currently homeless. Likely discharge tomorrow the patient is improving.
[2025-02-22] MEDS: SERTRALINE 100 MG TAB PO SCH (21:13)
[2025-02-23 08:25] VITALS: BP 114/82; PULSE 90; RESP 20; TEMP 98.1
--- NOTE | 2025-02-23 11:52 | P.DS ---
Providers Date of admission: 02/18/25 20:17 Expected date of discharge: 02/23/25 Attending physician: Trey Steiner MD Consults: 02/18/25 19:09 Consult Physician Routine Consulting Provider: [facility] Consult Reason/Comments: H and P Do you want consulting provider notified?: Yes Primary care physician: Annia Dong - Discharge Diagnosis(es) (1) Major depressive disorder, recurrent severe without psychotic features Current Visit: Yes Status: Acute Priority: High (2) Generalized anxiety disorder Current Visit: Yes Status: Acute Priority: Medium (3) Alcohol use disorder, severe, dependence Current Visit: Yes Status: Acute Priority: High (4) Homelessness Current Visit: Yes Status: Acute Priority: Medium Hospital Course: Admission HPI: Admission note was completed by Dr Wright "patient is a 39 years old homeless male with past psychiatric history of depression, anxiety, and alcohol use disorder presented to the hospital initially for suicidal ideation and depression in context of medication noncompliance. Patient presented to the hospital initially on 02/16 for increased depression and suicidal thoughts, he does reported that he has been abusing more alcohol. His blood alcohol level on admission was 289, patient was admitted to the medical floor for alcohol withdrawal. Psychiatry was consulted and recommended patient to be admitted to the psychiatric unit once medically cleared. Per chart review the patient reported that he has not been compliant with his medications for about a month, reported that he went to rehab for about a month and was recently released however relapsed afterward. Claims that he drinks 23 bottles of wine daily, reported more depression and anxiety. Mild withdrawal symptoms including shaking, nausea, diarrhea and headache. Upon evaluation in the unit today, the patient was in his room, laying in bed, agreed to speak with the hand sign writer in the office. He states that he was having suicidal thoughts and was drinking a lot and wanted to get some help. States that before he came in he had the suicidal thoughts for 5 days. States that suicidal thoughts are still there however less intense, he denied any intention or plan. States that he has been feeling down, sad, depressed, hopeless, worthless, and helpless for about a month, states that he had the same depressive episodes in the past few months ago, and a year prior to that. He rated depression at 7/10. Denied any current homicidal thoughts, states that suicidal thoughts are less intense but is still there. He denied any previous history of suicide. Sleep is not that great, reported 5 hours of sleep on average, waking up during the night. Appetite is good. Admitted to feeling anxious about his future, family, and being homeless. At this time patient denies any auditory or visual hallucinations. Patient denies any flight of ideas racing thoughts and increased in goal directed behavior. Patient admits to using alcohol, states that he started drinking when he was 16 yo, last drink was on , 2 bottles of wine, reported that his average is 1/5 per day. He was in rehab in the past, last was in January, claims that he completed the pr ogram. Reported that he attended rehab at least 10 times in the past. Denied any current withdrawal symptoms. Reported history of nausea, headache, trouble sleeping, shaking in the past. Denied any history of withdrawal seizures or DTs. Denied using tobacco or cannabis, or any other illicit substances." Hospital course: Upon admission to the unit patient was directable and agreeable to commence t reatment and signed adult voluntary form. Patient was initially depressed, going through alcohol withdrawal, isolated however with time and treatment patient got along well with other patients on the unit and followed unit protocol. Patient was compliant with the medications and denied any side effects throughout hospital course. Patient was started on Zoloft increased to a dose of 100 mg nightly for mood/anxiety, trazodone 100 mg nightly for insomnia/mood. Patient was also on CIWA protocol with as needed Ativan and also Librium which was gradually tapered off for alcohol withdrawal. Patient declined any anticraving medications for alcohol use. Patient spoke of his stressors however did not participate much in group/activity therapy and mainly kept to themselves during hospitalization. Patient was also seen by medical team for history and physical exam. Throughout the course of the hospitalization patient gradually improved with regards to mood, anxiety, sleep and returned back to their baseline level of functioning. On the day of discharge patient denied any suicidal or homicidal ideations intent or plan denied any auditory or visual hallucinations. Patient endorsed wanting to live for their health and family. The patient denied any access to guns or weapons. Patient denied any paranoia and did not endorse any delusions. Patient does have a significant history of substance abuse and was counseled on abstaining from all substances including alcohol and marijuana. Patient was offered however declined inpatient substance-abuse rehab. Patient elected to do outpati ent substance use treatment program through their outpatient provider. Patient claims that he attempted to call for rehab however is waiting for them to process his application for an intake date, will continue to follow up with him upon discharge. Patient was also counseled on the medications and need for regular compliance and was encouraged to follow-up with their outpatient appointment for mental health and also for primary care. [facility] will be referred to local [facility] today and will be following up at [facility]. Mental status exam: General Appearance: Patient appears to be thin, stated age is alert, pleasant, and cooperative. Patient is in no acute distress and has improved hygiene and grooming Behavior: Patient is calmly seated without any agitated behavior. Speech: Patient's speech is fluent and nonpressured. Mood/Affect: Patient reports their mood is "good", affect is congruent and euthymic. Suicidality/Homicidality: Patient denies having any suicidal or homicidal ideation intent or plan. Perceptions: Patient denies any auditory or visual hallucinations. Though content/process: There is no evidence of any delusional thought content and thought process is linear and goal-directed. More future oriented Memory and concentration: AOX3, grossly intact for the purposes of this session. Can spell "WORLD" backwards correctly. Judgment and insight: Chronically poor, however has improved with guarded prognosis Impression: Major depressive disorder severe without psychotic features Generalized anxiety disorder Alcohol use disorder severe dependence Homelessness Plan: -Continue with discharge today as patient has improved and stabilized psychiatrically and is not currently an imminent threat to themself and/or others. Patient will remain at chronically elevated risk for harm to self and/or others due to their impulsivity and substance abuse. -Continue medications: Zoloft 100 mg nightly for mood/anxiety, trazodone 100 mg nightly for insomnia/mood. -Patient was counseled on the need for medication compliance and appropriate follow-up at mental health and also primary care for medical issues. Patient verbalized understanding and agreed. -Social work to help coordinate patients discharge today. also to ensure safe home environment that guns/weapons are either removed from the home or locked away. Social work also to arrange for patients follow up appointments with [facility] for psychiatric care along with follow up with primary care provider. -Patient counseled on abstaining from recreational drugs and marijuana and alcohol. Was informed/educated on the adverse effects on their physical and mental health. Patient verbally agreed and understood. Patient claims that he is still waiting on approval and intake date for rehab once again -Patient was instructed to return to the hospital or seek immediate medical care if their psychiatric or medical symptoms do worsen or reoccur. Allergies Allergy/AdvReac Type Severity Reaction Status Date / Time No Known Allergies Allergy Verified 02/19/25 08:54 Laboratory Results Sodium 141 mmol/L (137-145) 02/19/25 07:52 Potassium 3.8 mmol/L (3.5-5.1) 02/19/25 07:52 Chloride 109 mmol/L (98-107) H 02/19/25 07:52 Carbon Dioxide 23 mmol/L (22-30) 02/19/25 07:52 Anion Gap 9 mmol/L 02/19/25 07:52 BUN 13 mg/dL (9-20) 02/19/25 07:52 Creatinine 0.82 mg/dL (0.66-1.25) 02/19/25 07:52 Est GFR (CKD-EPI)AfAm >90 (>60 ml/min/1.73 sqM) 02/19/25 07:52 Est GFR (CKD-EPI)NonAf >90 (>60 ml/min/1.73 sqM) 02/19/25 07:52 Glucose 89 mg/dL (74-99) 02/19/25 07:[address] Glu mg/dL 94 mg/dL 02/19/25 07:52 Hemoglobin A1c 4.9 % (<=6.0) 02/19/25 07:52 Calcium 9.6 mg/dL (8.4-10.2) 02/19/25 07:52 Total Bilirubin 0.7 mg/dL (0.2-1.3) 02/19/25 07:52 AST 37 U/L (17-59) 02/19/25 07:52 ALT 40 U/L (4-49) 02/19/25 07:52 Alkaline Phosphatase 104 U/L (38-126) 02/19/25 07:52 Total Protein 6.6 g/dL (6.3-8.2) 02/19/25 07:52 Albumin 4.1 g/dL (3.5-5.0) 02/19/25 07:52 Triglycerides 67.80 mg/dL (0.00-149.00) 02/19/25 07:52 Cholesterol 178.00 mg/dL (0.00-200.00) 02/19/25 07:52 LDL Cholesterol, Calc 82.6 mg/dL (0.0-131.0) 02/19/25 07:52 VLDL Cholesterol, Calc 13.56 mg/dL (5.00-40.00) 02/19/25 07:52 HDL Cholesterol 81.80 mg/dL (40.00-60.00) H 02/19/25 07:52 Cholesterol/HDL Ratio 2.18 Ratio 02/19/25 07:52 TSH 1.210 mIU/L (0.465-4.680) 02/19/25 07:52 Urine Color Light Yellow 02/19/25 12:51 Urine Appearance Clear (Clear) 02/19/25 12:51 Urine pH 6.0 (5.0-8.0) 02/19/25 12:51 Ur Specific [place] 1.015 (1.001-1.035) 02/19/25 12:51 Urine Protein Negative (Negative) 02/19/25 12:51 Urine Glucose (UA) Negative (Negative) 02/19/25 12:51 Urine Ketones Negative (Negative) 02/19/25 12:51 Urine Blood Negative (Negative) 02/19/25 12:51 Urine Nitrite Negative (Negative) 02/19/25 12:51 Urine Bilirubin Negative (Negative) 02/19/25 12:51 Urine Urobilinogen <2.0 mg/dL (<2.0) 02/19/25 12:51 Ur Leukocyte Esterase Negative (Negative) 02/19/25 12:51 Vital Signs Temp 98.1 F 02/23/25 08:24 Pulse 90 02/23/25 08:24 Resp 20 02/23/25 08:24 BP 114/82 02/23/25 08:24 Pulse Ox 97 02/23/25 08:24 FiO2 Patient Condition at Discharge: Stable Plan - Discharge Summary Discharge Rx Participant: Yes New Discharge Prescriptions: New traZODone HCL [Desyrel] 100 mg PO HS 30 Days #30 tab Folic Acid 1 mg PO DAILY tab Multivitamins, Thera [Multivitamin (formulary)] 1 each PO DAILY tab Thiamine [Vitamin B-1] 100 mg PO DAILY tab Sertraline [Zoloft] 100 mg PO HS 30 Days #30 tab Discharge Medication List Folic Acid 1 mg PO DAILY tab 02/23/25 [Rx] Multivitamins, Thera [Multivitamin (formulary)] 1 each PO DAILY tab 02/23/25 [Rx] Sertraline [Zoloft] 100 mg PO HS 30 Days #30 tab 02/23/25 [Rx] Thiamine [Vitamin B-1] 100 mg PO DAILY tab 02/23/25 [Rx] traZODone HCL [Desyrel] 100 mg PO HS 30 Days #30 tab 02/23/25 [Rx] Follow up Appointment(s)/Referral(s): [facility], Med [Other] - [facility]Outside[facility] - 02/23/25 3:30 pm (02/23/2025 3:30PM - 4:30PM JAVIER BERG 03/02/2025 12:00PM - 1:00PM BREANN COOMBS ) Patient Instructions/Handouts: Depression (DC), Abuse of Alcohol (DC) Activity/Diet/Wound Care/Special Instructions: [facility] Discharge Info Avoid the use of street drugs and alcohol. Take all medications as prescribed. When you are in need of refills on your medications, please contact your outpatient medical provider and/or outpatient psychiatrist. Please go to your scheduled outpatient appointments for aftercare treatment. If symptoms return or become worse, call the crisis line at or and/or visit the nearest emergency room for assistance. National Suicide and Crisis Lifeline - call or text 423.Medical physician recommends to follow up outpatient in 4-6 weeks to have thyroid levels checked again. Recommendations to have an EMG outpatient on bilateral upper extremities for probable bilateral carpal tunnel. Discharge/Stand Alone Forms: AA Meetings [place], [facility] Shel[facility], Community Resources Discharge Disposition: OTHER INSTITUTION NOT DEFINED
== END 2025-02-23 13:20 | disposition home or self-care (01) | DRG 751 ==
LOC: 3MHU 20:17
PROVIDERS: ADMIT Psychiatry & Neurology Psychiatry; ATTEND Psychiatry & Neurology Psychiatry
DX: F33.2 Major depressive disorder, recurrent severe without psychotic features (principal); F10.239 Alcohol dependence with withdrawal, unspecified; F41.1 Generalized anxiety disorder; G47.00 Insomnia, unspecified; R45.851 Suicidal ideations; Z59.00 Homelessness unspecified; Z79.899 Other long term (current) drug therapy; Z87.891 Personal history of nicotine dependence; Z91.148 Patient's other noncompliance with medication regimen for other reason
CPT/HCPCS: 80053; 80061; 81003; 83036; 84443